=== PATIENT | female | born 1960 | race Caucasian/White ===

== ENCOUNTER 2021-07-27 05:14 | Inpatient (IN) | payer MEDICARE ==
[2021-07-27] MEDS ORDERED: DUONEB 0.5-3 MG/3 ml Neb IH ONE ×4 (05:23→06:09)
[2021-07-27 06:22] LABS: Absolute Neutrophil Ct (ANC) 6.32 (1.4-6.9); BASOPHIL % 0.3 % (0.0-0.4); Basophil (Absolute #) 0.02 (0-0.4); Eosinophil % 1.7 % (0.00-5.0); Eosinophil (Absolute #) 0.13 (0-0.5); Hematocrit 45.6 % (35-47); Hemoglobin 13.1 gm/dl (12.0-16.0); Lymphocyte (Absolute #) 0.65 (1.0-4.6); Lymphocytes % 8.5 % (24.0-44.0); Mean Cell Volume 95.8 fl (78-100); Mean Corpuscular Hemoglobin 27.5 pg (26-32); Mean Corpuscular Hgb Concent. 28.7 g/dl (32-36); Mean Platelet Volume 10.9 fl (7.5-11.0); Monocyte (Absolute #) 0.49 (0.0-1.3); Monocytes % 6.4 % (0.0-12.0); Neutrophil % 83.1 % (36.0-66.0); Platelet Count 147 K/mm3 (150-450); Red Blood Count 4.76 M/mm3 (4.1-5.4); Red Cell Distribution Width 16.7 % (11.5-14.0); White Blood Count 7.6 K/mm3 (4.0-10.5)
--- NOTE | 2021-07-27 06:40 | ERPHSYRPT ---
- History of Present Illness Source: patient, EMS Exam Limitations: clinical condition Patient Subjective Stated Complaint: "I can't breathe." Triage Nursing Assessment: patient is 60 y/o white female with PMH significant for COPD, asthma, DVT/PE, and morbid obesity. She presented via EMS with reported dyspnea and retrosternal chest pain. She reported that the dyspnea has been progressively worsening over the past two - three weeks. 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 Patient denies fevers. She denies nausea vomiting diarrhea. Patient was brought in by EMS service. They provided the patient nitroglycerin x1, Solu-Medrol intravenously and DuoNeb nebulizer treatment x1. Patient has no known exposure to anyone that has known COVID-19 infection or other respiratory illnesses. (SRIRAM VARGAS) Allergies/Adverse Reactions: Penicillins Allergy (Verified 07/27/21 05:16) Home Medications: Albuterol Sulfate [Ventolin Hfa] 2 puffs IH QID PRN 07/27/21 [History] Allopurinol 300 mg [Zyloprim 300 mg] 300 mg PO DAILY 07/27/21 [History] Apixaban [Eliquis] 5 mg PO DAILY 07/27/21 [History] Escitalopram Oxalate 20 mg PO DAILY 07/27/21 [History] Montelukast Sodium 10 mg [Singulair 10 MG] 10 mg PO HS 07/27/21 [History] hydrOXYzine HCL [Hydroxyzine HCl] 50 mg PO DAILY 07/27/21 [History] Travel Risk - International Travel Have you traveled outside of the country in past 3 weeks: No - Coronavirus Screening Are you exhibiting any of the following symptoms?: Yes Symptoms: Shortness of Breath Close contact with a COVID-19 positive Pt in past 14-21 Days: No - Vaccine Status Have you recieved a Covid-19 vaccination: No <SRIRAM VARGAS - Last Filed: 07/27/21 07:08> - Review of Systems Constitutional: No Symptoms Eyes: No Symptoms Ears, Nose, & Throat: No Symptoms Respiratory: Cough, Dyspnea Cardiac: Chest Pain Abdominal/Gastrointestinal: No Symptoms Genitourinary Symptoms: No Symptoms Musculoskeletal: No Symptoms Skin: No Symptoms Neurological: No Symptoms Psychological: No Symptoms Endocrine: No Symptoms Hematologic/Lymphatic: No Symptoms Immunological/Allergic: No Symptoms All Other Systems: Reviewed and Negative <SRIRAM VARGAS - Last Filed: 07/27/21 07:08> - Past Medical History Pertinent Past Medical History: Yes Neurological History: No Pertinent History ENT History: No Pertinent History Cardiac History: Hypertension Respiratory History: Asthma, COPD Endocrine Medical History: No Pertinent History Musculoskeletal History: No Pertinent History GI Medical History: Hemorrhoids History: No Pertinent History Psycho-Social History: Anxiety, Depression Female Reproductive Disorders: No Pertinent History Other Medical History: KIDNEY STONES - Past Surgical History Past Surgical History: Yes Neuro Surgical History: No Pertinent History Cardiac: No Pertinent History Respiratory: No Pertinent History Gastrointestinal: No Pertinent History Genitourinary: No Pertinent History Musculoskeletal: No Pertinent History Female Surgical History: Tubal Ligation - Social History Smoking Status: Former smoker Exposure to second hand smoke: No Drug Use: none Patient Lives Alone: No - Female History Hx Now: No <SRIRAM VARGAS - Last Filed: 07/27/21 07:08> - Physical Exam General Appearance: moderate distress, alert, anxiety, obese Eye Exam: PERRL/EOMI, eyes nml inspection Ears, Nose, Throat Exam: hearing grossly normal, normal ENT inspection, normal pharynx Neck Exam: normal inspection, non-tender, supple, full range of motion Respiratory Exam: normal breath sounds, lungs clear, respiratory distress (Mild to moderate), airway intact, wheezing, No chest tenderness Cardiovascular/Chest Exam: normal heart sounds, regular rate/rhythm, normal peripheral pulses Abdominal/Gastrointestinal Exam: soft, normal bowel sounds, No tenderness Rectal Exam: not done Extremity Exam: non-tender, normal range of motion, normal inspection Neurologic Exam: alert, oriented x 3, cooperative, investments manager II-XII nml as tested, normal mood/affect, sensation nml Skin Exam: normal color, warm, dry Lymphatic Exam: No adenopathy SpO2 Interpretation: hypoxic SpO2: 98 O2 Delivery: Non-rebreather <SRIRAM VARGAS - Last Filed: 07/27/21 07:08> - Nursing Vital Signs Nursing Vital Signs: Initial Vital Signs Temperature 99.1 F 07/27/21 05:14 Pulse Rate 86 07/27/21 05:14 Respiratory Rate 22 07/27/21 05:14 Blood Pressure 176/93 07/27/21 05:14 O2 Sat by Pulse Oximetry 90 L 07/27/21 05:14 Pain Scale Pain Intensity 0 - Course Nursing assessment & vital signs reviewed: Yes EKG Interpreted by Me: RATE ([id number]), Right [place] Deviation, NORMAL INTERVALS, NORMAL QRS, NORMAL ST-T, Other (No acute ischemic changes. No comparison EKG available.) <SRIRAM VARGAS - Last Filed: 07/27/21 07:08> Ordered Tests: Active Orders 24 hr Category Date Time Status Up Ad Nidhi ROUTINE Activity 07/27/21 08:00 Active Supervisor Parking Lot STAT Care 07/27/21 05:57 Active Code Status Order ROUTINE Care 07/27/21 08:00 Ordered EKG-ER Only STAT Care 07/27/21 05:57 Active Fall Protocol ROUTINE Care 07/27/21 08:02 Ordered IV Care Q6H Care 07/27/21 08:00 Ordered IV Insertion STAT Care 07/27/21 05:57 Active Miscellaneous Nursing Order OM.NOW Care 07/27/21 08:00 Ordered Oxygen-ED Only NON-REBREATHER 100% Care 07/27/21 05:[address] in Observation ROUTINE Care 07/27/21 08:00 Ordered Pulse Oximetry (ED) STAT Care 07/27/21 05:57 Active Pili Wagoner ROUTINE Care 07/27/21 08:00 Ordered Weight,Daily 0600 Care 07/27/21 08:00 Ordered Heart-Healthy Diet Diet 07/27/21 Lunch Active CHEST 1 VIEW (PORTABLE) Stat Exams 07/27/21 05:59 Taken CHEST 2 VIEWS (PA AND LAT) DAILY Exams 07/27/21 08:15 Ordered CHEST WITH CONTRAST [CT] Stat Exams 07/27/21 07:12 Ordered ARTERIAL BLOOD GASES Stat Lab 07/27/21 06:42 Completed BLOOD CULTURE Stat Lab 07/27/21 06:46 Received CBC AM.LAB Lab 07/28/21 04:00 Ordered CBC W DIFF Stat Lab 07/27/21 06:15 Completed CMP AM.LAB Lab 07/28/21 04:00 Ordered CMP Stat Lab 07/27/21 06:15 Completed D-DIMER QUANTITATIVE Stat Lab 07/27/21 06:15 Completed INFLUENZA A+B KARTHIK Stat Lab 07/27/21 06:30 Completed LIPASE Stat Lab 07/27/21 06:15 Completed Lactic Acid Stat Lab 07/27/21 06:42 Completed MAGNESIUM AM.LAB Lab 07/28/21 04:00 Ordered MAGNESIUM Stat Lab 07/27/21 06:15 Completed NT PRO BNP Stat Lab 07/27/21 06:15 Completed PROTIME WITH INR Stat Lab 07/27/21 06:15 Completed TROPONIN Q3H Lab 07/27/21 06:15 Completed TROPONIN Q3H Lab 07/27/21 09:00 Ordered TROPONIN Q3H Lab 07/27/21 12:00 Ordered TROPONIN Q3H Lab 07/27/21 15:00 Ordered TROPONIN Q3H Lab 07/27/21 18:00 Ordered TROPONIN Q3H Lab 07/27/21 21:00 Ordered Oxygen Venti-Mask 50% RT 07/27/21 08:00 Ordered Pulse Oximetry ROUTINE RT 07/27/21 08:00 Ordered Respiratory Therapy Assessment DAILY RT 07/27/21 05:42 Active Respiratory Therapy Consult ROUTINE RT 07/27/21 08:03 Ordered Medication Summary Discontinued Medications Generic Name Dose Route Start Last Admin Trade Name Freq PRN Reason Stop Dose Admin Albuterol/Ipratropium Confirm 07/27/21 05:24 Duoneb 0.5-3 Mg/3 Ml Neb Administered 07/27/21 05:25 Dose 3 ml IH .STK-MED ONE Albuterol/Ipratropium 3 ml 07/27/21 05:23 07/27/21 05:28 Duoneb 0.5-3 Mg/3 Ml Neb IH 07/27/21 05:24 3 ml STAT ONE Administration Albuterol/Ipratropium 3 ml 07/27/21 05:57 07/27/21 06:12 Duoneb 0.5-3 Mg/3 Ml Neb IH 07/27/21 05:58 3 ml STAT ONE Administration Albuterol/Ipratropium Confirm 07/27/21 06:09 Duoneb 0.5-3 Mg/3 Ml Neb Administered 07/27/21 06:10 Dose 3 ml IH .STK-MED ONE Famotidine 20 mg 07/27/21 07:42 07/27/21 07:46 Pepcid 20 Mg Vial IV 07/27/21 07:43 20 mg STAT ONE Administration Famotidine Confirm 07/27/21 07:45 Pepcid 20 Mg Vial Administered 07/27/21 07:46 Dose 20 mg IV .STK-MED ONE Pantoprazole Sodium 40 mg 07/27/21 07:42 07/27/21 07:45 Protonix 40 Mg Iv IV 07/27/21 07:43 40 mg STAT ONE Administration Pantoprazole Sodium Confirm 07/27/21 07:45 Protonix 40 Mg Iv Administered 07/27/21 07:46 Dose 40 mg IV .STK-MED ONE Lab/Rad Data: Laboratory Result Diagrams 07/27/21 06:15 07/27/21 06:15 Laboratory Results 07/27/21 07/27/21 07/27/21 Range/Units 06:42 06:30 06:15 WBC (4.0-10.5) K/mm3 RBC (4.1-5.4) M/mm3 Hgb (12.0-16.0) gm/dl Hct (35-47) % MCV (78-100) fl MCH (26-32) pg MCHC (32-36) g/dl RDW (11.5-14.0) % Plt Count (150-450) K/mm3 MPV (7.5-11.0) fl Gran % (36.0-66.0) % Eos # (Auto) (0-0.5) Absolute Lymphs (auto) (1.0-4.6) Absolute Monos (auto) (0.0-1.3) Lymphocytes % (24.0-44.0) % Monocytes % (0.0-12.0) % Eosinophils % (0.00-5.0) % Basophils % (0.0-0.4) % Absolute Granulocytes (1.4-6.9) Basophils # (0-0.4) PT (9.4-12.5) SECONDS INR (0.8-3.0) D-Dimer (215-500) ng/mL Puncture Site RIGHT RADIAL pCO2 81 H* (35-45) mmHg pO2 143 H* (75-100) mmHg Base Excess 11.0 H (-2.0-2.0) O2 Saturation 96.0 (94-100) g/dF ABG pH 7.31 L (7.35-7.45) ABG HCO3 40.8 H* (22-28) ABG O2 Sat (Measured) 99.4 (95-100) % Nam Test YES A-a Gradient 469 a/A Ratio 0.23 Hemoglobin 13.7 Carboxyhemoglobin 2.2 (0.0-6.9) % THgb Methemoglobin 1.2 L (1.4-1.5) % Temperature 37.0 C POC O2 Flow Rate 100 % Sodium (137-145) mmol/L Potassium 4.3 (3.5-5.1) mmol/L Chloride (98-107) mmol/L Carbon Dioxide (22-30) mmol/L Anion Gap (5-15) MEQ/L BUN (7-17) mg/dL Creatinine (0.52-1.04) mg/dL Estimated GFR ML/MIN Glucose (74-106) mg/dL Lactic Acid 0.7 (0.4-2.0) Calcium (8.4-10.2) mg/dL Magnesium 2.0 (1.6-2.3) mg/dL Total Bilirubin (0.2-1.3) mg/dL AST (14-36) U/L ALT (0-35) U/L Alkaline Phosphatase (38-126) U/L Troponin I (0.000-0.034) ng/mL NT-Pro-B Natriuret Pep (0-900) pg/mL Serum Total Protein (6.3-8.2) g/dL Albumin (3.5-5.0) g/dL Lipase (23-300) U/L Influenza Type A Ag NEGATIVE (NEGATIVE) Influenza Type B Ag NEGATIVE (NEGATIVE) 07/27/21 07/27/21 07/27/21 Range/Units 06:15 06:15 06:15 WBC (4.0-10.5) K/mm3 RBC (4.1-5.4) M/mm3 Hgb (12.0-16.0) gm/dl Hct (35-47) % MCV (78-100) fl MCH (26-32) pg MCHC (32-36) g/dl RDW (11.5-14.0) % Plt Count (150-450) K/mm3 MPV (7.5-11.0) fl Gran % (36.0-66.0) % Eos # (Auto) (0-0.5) Absolute Lymphs (auto) (1.0-4.6) Absolute Monos (auto) (0.0-1.3) Lymphocytes % (24.0-44.0) % Monocytes % (0.0-12.0) % Eosinophils % (0.00-5.0) % Basophils % (0.0-0.4) % Absolute Granulocytes (1.4-6.9) Basophils # (0-0.4) PT 14.4 H (9.4-12.5) SECONDS INR 1.22 (0.8-3.0) D-Dimer 2287 H* (215-500) ng/mL Puncture Site pCO2 (35-45) mmHg pO2 (75-100) mmHg Base Excess (-2.0-2.0) O2 Saturation (94-100) g/dF ABG pH (7.35-7.45) ABG HCO3 (22-28) ABG O2 Sat (Measured) (95-100) % Nam Test A-a Gradient a/A Ratio Hemoglobin Carboxyhemoglobin (0.0-6.9) % THgb Methemoglobin (1.4-1.5) % Temperature C POC O2 Flow Rate % Sodium 141 (137-145) mmol/L Potassium 4.0 (3.5-5.1) mmol/L Chloride 95 L (98-107) mmol/L Carbon Dioxide 39 H (22-30) mmol/L Anion Gap 10.2 (5-15) MEQ/L BUN 15 (7-17) mg/dL Creatinine 0.63 (0.52-1.04) mg/dL Estimated GFR > 60.0 ML/MIN Glucose 167 H (74-106) mg/dL Lactic Acid (0.4-2.0) Calcium 8.6 (8.4-10.2) mg/dL Magnesium (1.6-2.3) mg/dL Total Bilirubin 1.70 H (0.2-1.3) mg/dL AST 106 H (14-36) U/L ALT 27 (0-35) U/L Alkaline Phosphatase 99 (38-126) U/L Troponin I 0.018 (0.000-0.034) ng/mL NT-Pro-B Natriuret Pep 1740 H (0-900) pg/mL Serum Total Protein 6.8 (6.3-8.2) g/dL Albumin 3.6 (3.5-5.0) g/dL Lipase 26 (23-300) U/L Influenza Type A Ag (NEGATIVE) Influenza Type B Ag (NEGATIVE) 07/27/21 Range/Units 06:15 WBC 7.6 (4.0-10.5) K/mm3 RBC 4.76 (4.1-5.4) M/mm3 Hgb 13.1 (12.0-16.0) gm/dl Hct 45.6 (35-47) % MCV 95.8 (78-100) fl MCH 27.5 (26-32) pg MCHC 28.7 L (32-36) g/dl RDW 16.7 H (11.5-14.0) % Plt Count 147 L (150-450) K/mm3 MPV 10.9 (7.5-11.0) fl Gran % 83.1 H (36.0-66.0) % Eos # (Auto) 0.13 (0-0.5) Absolute Lymphs (auto) 0.65 L (1.0-4.6) Absolute Monos (auto) 0.49 (0.0-1.3) Lymphocytes % 8.5 L (24.0-44.0) % Monocytes % 6.4 (0.0-12.0) % Eosinophils % 1.7 (0.00-5.0) % Basophils % 0.3 (0.0-0.4) % Absolute Granulocytes 6.32 (1.4-6.9) Basophils # 0.02 (0-0.4) PT (9.4-12.5) SECONDS INR (0.8-3.0) D-Dimer (215-500) ng/mL Puncture Site pCO2 (35-45) mmHg pO2 (75-100) mmHg Base Excess (-2.0-2.0) O2 Saturation (94-100) g/dF ABG pH (7.35-7.45) ABG HCO3 (22-28) ABG O2 Sat (Measured) (95-100) % Nam Test A-a Gradient a/A Ratio Hemoglobin Carboxyhemoglobin (0.0-6.9) % THgb Methemoglobin (1.4-1.5) % Temperature C POC O2 Flow Rate % Sodium (137-145) mmol/L Potassium (3.5-5.1) mmol/L Chloride (98-107) mmol/L Carbon Dioxide (22-30) mmol/L Anion Gap (5-15) MEQ/L BUN (7-17) mg/dL Creatinine (0.52-1.04) mg/dL Estimated GFR ML/MIN Glucose (74-106) mg/dL Lactic Acid (0.4-2.0) Calcium (8.4-10.2) mg/dL Magnesium (1.6-2.3) mg/dL Total Bilirubin (0.2-1.3) mg/dL AST (14-36) U/L ALT (0-35) U/L Alkaline Phosphatase (38-126) U/L Troponin I (0.000-0.034) ng/mL NT-Pro-B Natriuret Pep (0-900) pg/mL Serum Total Protein (6.3-8.2) g/dL Albumin (3.5-5.0) g/dL Lipase (23-300) U/L Influenza Type A Ag (NEGATIVE) Influenza Type B Ag (NEGATIVE) - Progress Progress: improved, re-examined Air Movement: fair Blood Culture(s) Obtained: Yes Antibiotics given: No Counseled pt/family regarding: lab results, diagnosis, rad results <SRIRAM VARGAS - Last Filed: 07/27/21 07:08> - Progress Discussed with : Jules Will see patient in: hospital (observation) Counseled pt/family regarding: need for follow-up <ZULMA MEDINA - Last Filed: 07/27/21 08:07> - Progress Progress Note: 07/27/21 06:40 Chest x-ray shows cardiomegaly with increased bronchial vascular markings bilaterally. Fluid versus infiltrate 07/27/21 07:09 Medical decision making: I reviewed this patient with Dr. Medina. We discussed the patient history, work-up results and pending labs that need to be followed up on. Patient is aware that this patient is being placed on BiPAP. He will follow up on x-rays and pending labs. He will make the final disposition. (SRIRAM VARGAS) - Departure Departure Disposition: Observation Critical Care Time: No <SRIRAM VARGAS - Last Filed: 07/27/21 07:08> - Departure Departure Disposition: Observation Critical Care Time: Yes Critical Care Time(excluding separately billable procedures): Critical 30-74 mins <ZULMA MEDINA - Last Filed: 07/27/21 08:07> - Departure Clinical Impression: SOB (shortness of breath), Hypoxia Condition: Fair Referrals: KENYA REYES OVERLAY OPERATOR [Primary Care Provider] -
[2021-07-27 06:45] LABS: INR 1.22 (0.8-3.0); PROTIME 14.4 SECONDS (9.4-12.5)
[2021-07-27 06:51] LABS: A-aADO2 469; ABG HEMOGLOBIN 13.7; ABG POTASSIUM 4.3 (3.5-5.1); ABG SITE RIGHT RADIAL; ALLEN TEST OK? YES; ARTERIAL BLD GAS O2 SATURATION 99.4 % (95-100); ARTERIAL BLOOD GAS FIO2 100 %; ARTERIAL BLOOD GAS PCO2 81 mmHg (35-45); ARTERIAL BLOOD GAS PO2 143 mmHg (75-100); ARTERIAL BLOOD GAS pH 7.31 (7.35-7.45); CARBOXYHEMOGLOBIN 2.2 % THgb (0.0-6.9); HCO3- 40.8 (22-28); Lactic Acid 0.7 (0.4-2.0); Methhemoglobin 1.2 % (1.4-1.5)
[2021-07-27 06:56] LABS: ALBUMIN 3.6 g/dL (3.5-5.0); ALKALINE PHOSPHATASE 99 U/L (38-126); ANION GAP 10.2 MEQ/L (5-15); BLOOD UREA NITROGEN 15 mg/dL (7-17); CHLORIDE 95 mmol/L (98-107); Calcium 8.6 mg/dL (8.4-10.2); Carbon Dioxide 39 mmol/L (22-30); Creatinine 1 0.63 mg/dL (0.52-1.04); EST GLOMERULAR FILTRATION RATE > 60.0 ML/MIN; Glucose 167 mg/dL (74-106); LIPASE 26 U/L (23-300); NT PRO BNP 1740 pg/mL (0-900); SGOT/AST 106 U/L (14-36); SGPT/ALT 27 U/L (0-35); SODIUM 141 mmol/L (137-145); Total Protein 6.8 g/dL (6.3-8.2)
[2021-07-27 07:13] LABS: INFLUENZA A NEGATIVE (NEGATIVE); INFLUENZA B NEGATIVE (NEGATIVE)
[2021-07-27] MEDS ORDERED: Pepcid 20 MG VIAL IV ONE ×2 (07:42→07:45)
[2021-07-27] MEDS ORDERED: PROTONIX 40 MG IV IV ONE ×2 (07:42→07:45)
[2021-07-27] MEDS ORDERED: Sodium Chloride 0.9% 1000 ML 1,000 ML IV SCH (08:00)
[2021-07-27] MEDS ORDERED: ENOXAPARIN SODIUM SQ STA (08:08)
--- NOTE | 2021-07-27 08:22 | XRAY ---
Indication: Short of breath. Comparison: None Portable chest inflated with diffuse bilateral hazy interstitial alveolar opacities, small right base effusion/atelectasis, cardiomegaly, and bilateral hilar calcified nodes. Bony thorax intact.
[2021-07-27] MEDS ORDERED: ENOXAPARIN SODIUM SQ ONE (08:30)
[2021-07-27 09:17] LABS: A-aADO2 195; ABG HEMOGLOBIN 13.8; ABG POTASSIUM 4.6 (3.5-5.1); ARTERIAL BLD GAS O2 SATURATION 99.4 % (95-100); ARTERIAL BLOOD GAS FIO2 60 %; ARTERIAL BLOOD GAS PO2 140 mmHg (75-100); ARTERIAL BLOOD GAS pH 7.33 (7.35-7.45); CARBOXYHEMOGLOBIN 1.9 % THgb (0.0-6.9); HGB O2 SAT 96.4 g/dF (94-100)
[2021-07-27 09:18] LABS: ABG SITE RIGHT BRACHIAL; ARTERIAL BLOOD GAS PCO2 74 mmHg (35-45)
[2021-07-27 10:24] LABS: Slide Review 1 YES
[2021-07-27] MEDS ORDERED: DUONEB 0.5-3 MG/3 ml Neb IH SCH (11:00)
[2021-07-27] MEDS: DUONEB 0.5-3 MG/3 ml Neb IH SCH ×4 (11:54→21:59)
--- NOTE | 2021-07-27 12:39 | PCM.HP ---
History of Present Illness - Chief Complaint Chief Complaint: shortness of breath for 2-3 days History of Present Illness: is a 60 year old female.has a history of COPD, asthma and DVT/pulmonary emboli (on Eliquis) and presents with a 2 to 3-week history of worsening chest pain and shortness of breath as well as wheezing. Patient denies fevers. She denies nausea vomiting diarrhea. Patient was brought in by EMS service. They provided the patient nitroglycerin x1, Solu-Medrol in travenously and DuoNeb nebulizer treatment x1. Patient has no known exposure to anyone that has known COVID-19 infection or other respiratory illnesses. - Review of Systems Constitutional: Lethargy, Weakness, No Fever, No Chills Eyes: No Symptoms Ears, Nose, & Throat: No Symptoms Respiratory: Cough, Orthopnea, Short Of Breath, Wheezing Cardiac: No Chest Pain, No Edema, No Syncope Abdominal/Gastrointestinal: No Abdominal Pain, No Nausea, No Vomiting, No Diarrhea Genitourinary Symptoms: No Dysuria Musculoskeletal: No Back Pain, No Neck Pain Skin: No Rash Neurological: No Dizziness, No Focal Weakness, No Sensory Changes Psychological: No Symptoms Endocrine: No Symptoms Hematologic/Lymphatic: No Symptoms Immunological/Allergic: No Symptoms Medications & Allergies Home Medications: Home Medication List Albuterol Sulfate [Ventolin Hfa] 2 puffs IH QID PRN 07/27/21 [History Confirmed 07/27/21] Allopurinol 300 mg [Zyloprim 300 mg] 300 mg PO DAILY 07/27/21 [History Confirmed 07/27/21] Apixaban [Eliquis] 5 mg PO DAILY 07/27/21 [History Confirmed 07/27/21] Escitalopram Oxalate 20 mg PO DAILY 07/27/21 [History Confirmed 07/27/21] Montelukast Sodium 10 mg [Singulair 10 MG] 10 mg PO HS 07/27/21 [History Confirmed 07/27/21] hydrOXYzine HCL [Hydroxyzine HCl] 50 mg PO BID 07/27/21 [History Confirmed 07/27/21] Allergies/Adverse Reactions: Allergies Allergy/AdvReac Type Severity Reaction Status Date / Time Penicillins Allergy Verified 07/27/21 05:16 - Past Medical History Past Medical History: Yes Neurological History: No Pertinent History ENT History: No Pertinent History Cardiac History: Hypertension Respiratory History: Asthma, COPD Endocrine Medical History: No Pertinent History Musculoskelatal History: No Pertinent History GI Medical History: Hemorrhoids History: No Pertinent History Pyscho-Social History: Anxiety, Depression Reproductive Disorders: No Pertinent History Comment: KIDNEY STONES - Female History Are you now?: No - Past Surgical History Past Surgical History: Yes Neuro Surgical History: No Pertinent History Cardiac History: No Pertinent History Respiratory Surgery: No Pertinent History GI Surgical History: No Pertinent History Genitourinary Surgical Hx: No Pertinent History Musculskeletal Surgical Hx: No Pertinent History Female Surgical History: Tubal Ligation - Social History Smoking Status: Current every day smoker Exposure to second hand smoke: No Alcohol: None Drug Use: none - Physical Exam Vital Signs: Vital Signs - 24 hr Temp Pulse Resp BP Pulse Ox 07/27/21 11:27 97.7 F 82 28 H 179/85 96 07/27/21 11:01 97.7 F 82 28 H 179/85 96 07/27/21 10:11 97.4 F 84 20 160/81 98 07/27/21 09:04 97.8 F 84 24 164/88 94 L 07/27/21 08:06 78 20 169/85 97 07/27/21 08:00 96 07/27/21 07:19 99.2 F 77 20 148/65 92 L 07/27/21 07:11 98 07/27/21 06:14 85 22 153/80 98 07/27/21 06:12 83 20 98 07/27/21 05:57 98 07/27/21 05:28 91 H 19 87 L 07/27/21 05:14 99.1 F 86 26 H 176/93 92 L General Appearance: moderate distress, alert, obese Neurologic Exam: alert, oriented x 3, cooperative, sensation nml, No motor deficits, No sensory deficit Eye Exam: PERRL/EOMI, eyes nml inspection Ears, Nose, Throat Exam: normal ENT inspection, TMs normal, pharynx normal, moist mucous membranes Neck Exam: normal inspection, non-tender, supple, full range of motion Respiratory Exam: diminished breath sounds, crackles/rales, rhonchi, wheezing, No respiratory distress Cardiovascular Exam: tachycardia, capillary refill 2-3 sec, edema Gastrointestinal/Abdomen Exam: soft, normal bowel sounds, No tenderness, No mass Back Exam: normal inspection, normal range of motion, No CVA tenderness, No vertebral tenderness Extremity Exam: normal inspection, normal range of motion, pelvis stable Skin Exam: normal color, warm, dry, No rash Lymphatic Exam: No adenopathy Results - Labs Lab/Micro Results: Lab Results-Last 24 Hours 07/27/21 07/27/21 07/27/21 Range/Units 06:15 06:15 06:15 WBC 7.6 (4.0-10.5) K/mm3 RBC 4.76 (4.1-5.4) M/mm3 Hgb 13.1 (12.0-16.0) gm/dl Hct 45.6 (35-47) % MCV 95.8 (78-100) fl MCH 27.5 (26-32) pg MCHC 28.7 L (32-36) g/dl RDW 16.7 H (11.5-14.0) % Plt Count 147 L (150-450) K/mm3 MPV 10.9 (7.5-11.0) fl Gran % 83.1 H (36.0-66.0) % Eos # (Auto) 0.13 (0-0.5) Absolute Lymphs (auto) 0.65 L (1.0-4.6) Absolute Monos (auto) 0.49 (0.0-1.3) Lymphocytes % 8.5 L (24.0-44.0) % Monocytes % 6.4 (0.0-12.0) % Eosinophils % 1.7 (0.00-5.0) % Basophils % 0.3 (0.0-0.4) % Absolute Granulocytes 6.32 (1.4-6.9) Basophils # 0.02 (0-0.4) PT 14.4 H (9.4-12.5) SECONDS INR 1.22 (0.8-3.0) D-Dimer 2287 H* (215-500) ng/mL Puncture Site pCO2 (35-45) mmHg pO2 (75-100) mmHg Base Excess (-2.0-2.0) O2 Saturation (94-100) g/dF ABG pH (7.35-7.45) ABG HCO3 (22-28) ABG O2 Sat (Measured) (95-100) % Nam Test A-a Gradient a/A Ratio Hemoglobin Carboxyhemoglobin (0.0-6.9) % THgb Methemoglobin (1.4-1.5) % Temperature C POC O2 Flow Rate % Inspiratory BiPAP Expiratory BiPAP Sodium 141 (137-145) mmol/L Potassium 4.0 (3.5-5.1) mmol/L Chloride 95 L (98-107) mmol/L Carbon Dioxide 39 H (22-30) mmol/L Anion Gap 10.2 (5-15) MEQ/L BUN 15 (7-17) mg/dL Creatinine 0.63 (0.52-1.04) mg/dL Estimated GFR > 60.0 ML/MIN Glucose 167 H (74-106) mg/dL Lactic Acid (0.4-2.0) Calcium 8.6 (8.4-10.2) mg/dL Magnesium (1.6-2.3) mg/dL Total Bilirubin 1.70 H (0.2-1.3) mg/dL AST 106 H (14-36) U/L ALT 27 (0-35) U/L Alkaline Phosphatase 99 (38-126) U/L Troponin I (0.000-0.034) ng/mL NT-Pro-B Natriuret Pep 1740 H (0-900) pg/mL Serum Total Protein 6.8 (6.3-8.2) g/dL Albumin 3.6 (3.5-5.0) g/dL Lipase 26 (23-300) U/L Influenza Type A Ag (NEGATIVE) Influenza Type B Ag (NEGATIVE) SARS-CoV-2 (PCR) (NEGATIVE) Slides for Path Review YES 07/27/21 07/27/21 07/27/21 Range/Units 06:15 06:15 06:30 WBC (4.0-10.5) K/mm3 RBC (4.1-5.4) M/mm3 Hgb (12.0-16.0) gm/dl Hct (35-47) % MCV (78-100) fl MCH (26-32) pg MCHC (32-36) g/dl RDW (11.5-14.0) % Plt Count (150-450) K/mm3 MPV (7.5-11.0) fl Gran % (36.0-66.0) % Eos # (Auto) (0-0.5) Absolute Lymphs (auto) (1.0-4.6) Absolute Monos (auto) (0.0-1.3) Lymphocytes % (24.0-44.0) % Monocytes % (0.0-12.0) % Eosinophils % (0.00-5.0) % Basophils % (0.0-0.4) % Absolute Granulocytes (1.4-6.9) Basophils # (0-0.4) PT (9.4-12.5) SECONDS INR (0.8-3.0) D-Dimer (215-500) ng/mL Puncture Site pCO2 (35-45) mmHg pO2 (75-100) mmHg Base Excess (-2.0-2.0) O2 Saturation (94-100) g/dF ABG pH (7.35-7.45) ABG HCO3 (22-28) ABG O2 Sat (Measured) (95-100) % Nam Test A-a Gradient a/A Ratio Hemoglobin Carboxyhemoglobin (0.0-6.9) % THgb Methemoglobin (1.4-1.5) % Temperature C POC O2 Flow Rate % Inspiratory BiPAP Expiratory BiPAP Sodium (137-145) mmol/L Potassium (3.5-5.1) mmol/L Chloride (98-107) mmol/L Carbon Dioxide (22-30) mmol/L Anion Gap (5-15) MEQ/L BUN (7-17) mg/dL Creatinine (0.52-1.04) mg/dL Estimated GFR ML/MIN Glucose (74-106) mg/dL Lactic Acid (0.4-2.0) Calcium (8.4-10.2) mg/dL Magnesium 2.0 (1.6-2.3) mg/dL Total Bilirubin (0.2-1.3) mg/dL AST (14-36) U/L ALT (0-35) U/L Alkaline Phosphatase (38-126) U/L Troponin I 0.018 (0.000-0.034) ng/mL NT-Pro-B Natriuret Pep (0-900) pg/mL Serum Total Protein (6.3-8.2) g/dL Albumin (3.5-5.0) g/dL Lipase (23-300) U/L Influenza Type A Ag NEGATIVE (NEGATIVE) Influenza Type B Ag NEGATIVE (NEGATIVE) SARS-CoV-2 (PCR) (NEGATIVE) Slides for Path Review 07/27/21 07/27/21 07/27/21 Range/Units 06:42 08:18 09:04 WBC (4.0-10.5) K/mm3 RBC (4.1-5.4) M/mm3 Hgb (12.0-16.0) gm/dl Hct (35-47) % MCV (78-100) fl MCH (26-32) pg MCHC (32-36) g/dl RDW (11.5-14.0) % Plt Count (150-450) K/mm3 MPV (7.5-11.0) fl Gran % (36.0-66.0) % Eos # (Auto) (0-0.5) Absolute Lymphs (auto) (1.0-4.6) Absolute Monos (auto) (0.0-1.3) Lymphocytes % (24.0-44.0) % Monocytes % (0.0-12.0) % Eosinophils % (0.00-5.0) % Basophils % (0.0-0.4) % Absolute Granulocytes (1.4-6.9) Basophils # (0-0.4) PT (9.4-12.5) SECONDS INR (0.8-3.0) D-Dimer (215-500) ng/mL Puncture Site RIGHT RADIAL pCO2 81 H* (35-45) mmHg pO2 143 H* (75-100) mmHg Base Excess 11.0 H (-2.0-2.0) O2 Saturation 96.0 (94-100) g/dF ABG pH 7.31 L (7.35-7.45) ABG HCO3 40.8 H* (22-28) ABG O2 Sat (Measured) 99.4 (95-100) % Nam Test YES A-a Gradient 469 a/A Ratio 0.23 Hemoglobin 13.7 Carboxyhemoglobin 2.2 (0.0-6.9) % THgb Methemoglobin 1.2 L (1.4-1.5) % Temperature 37.0 C POC O2 Flow Rate 100 % Inspiratory BiPAP Expiratory BiPAP Sodium (137-145) mmol/L Potassium 4.3 (3.5-5.1) mmol/L Chloride (98-107) mmol/L Carbon Dioxide (22-30) mmol/L Anion Gap (5-15) MEQ/L BUN (7-17) mg/dL Creatinine (0.52-1.04) mg/dL Estimated GFR ML/MIN Glucose (74-106) mg/dL Lactic Acid 0.7 (0.4-2.0) Calcium (8.4-10.2) mg/dL Magnesium (1.6-2.3) mg/dL Total Bilirubin (0.2-1.3) mg/dL AST (14-36) U/L ALT (0-35) U/L Alkaline Phosphatase (38-126) U/L Troponin I < 0.012 (0.000-0.034) ng/mL NT-Pro-B Natriuret Pep (0-900) pg/mL Serum Total Protein (6.3-8.2) g/dL Albumin (3.5-5.0) g/dL Lipase (23-300) U/L Influenza Type A Ag (NEGATIVE) Influenza Type B Ag (NEGATIVE) SARS-CoV-2 (PCR) NEGATIVE (NEGATIVE) Slides for Path Review 07/27/21 Range/Units 09:16 WBC (4.0-10.5) K/mm3 RBC (4.1-5.4) M/mm3 Hgb (12.0-16.0) gm/dl Hct (35-47) % MCV (78-100) fl MCH (26-32) pg MCHC (32-36) g/dl RDW (11.5-14.0) % Plt Count (150-450) K/mm3 MPV (7.5-11.0) fl Gran % (36.0-66.0) % Eos # (Auto) (0-0.5) Absolute Lymphs (auto) (1.0-4.6) Absolute Monos (auto) (0.0-1.3) Lymphocytes % (24.0-44.0) % Monocytes % (0.0-12.0) % Eosinophils % (0.00-5.0) % Basophils % (0.0-0.4) % Absolute Granulocytes (1.4-6.9) Basophils # (0-0.4) PT (9.4-12.5) SECONDS INR (0.8-3.0) D-Dimer (215-500) ng/mL Puncture Site RIGHT BRACHIAL pCO2 74 H* (35-45) mmHg pO2 140 H* (75-100) mmHg Base Excess 10.0 H (-2.0-2.0) O2 Saturation 96.4 (94-100) g/dF ABG pH 7.33 L (7.35-7.45) ABG HCO3 39.0 H* (22-28) ABG O2 Sat (Measured) 99.4 (95-100) % Nam Test NOT APPLICABLE A-a Gradient 195 a/A Ratio 0.42 Hemoglobin 13.8 Carboxyhemoglobin 1.9 (0.0-6.9) % THgb Methemoglobin 1.0 L (1.4-1.5) % Temperature 37.0 C POC O2 Flow Rate 60 % Inspiratory BiPAP 12 Expiratory BiPAP 5 Sodium (137-145) mmol/L Potassium 4.6 (3.5-5.1) mmol/L Chloride (98-107) mmol/L Carbon Dioxide (22-30) mmol/L Anion Gap (5-15) MEQ/L BUN (7-17) mg/dL Creatinine (0.52-1.04) mg/dL Estimated GFR ML/MIN Glucose (74-106) mg/dL Lactic Acid (0.4-2.0) Calcium (8.4-10.2) mg/dL Magnesium (1.6-2.3) mg/dL Total Bilirubin (0.2-1.3) mg/dL AST (14-36) U/L ALT (0-35) U/L Alkaline Phosphatase (38-126) U/L Troponin I (0.000-0.034) ng/mL NT-Pro-B Natriuret Pep (0-900) pg/mL Serum Total Protein (6.3-8.2) g/dL Albumin (3.5-5.0) g/dL Lipase (23-300) U/L Influenza Type A Ag (NEGATIVE) Influenza Type B Ag (NEGATIVE) SARS-CoV-2 (PCR) (NEGATIVE) Slides for Path Review - Radiology Impressions Radiology Exams & Impressions: Radiology Procedures Category Date Time Status CHEST 1 VIEW (PORTABLE) Stat Exams 07/27/21 05:59 Completed CHEST 2 VIEWS (PA AND LAT) Routine Exams 07/28/21 08:15 Stop Req ECHO W/2D AND DOPPLER [US] Routine Exams 07/29/21 Ordered RAD/CHEST 1 VIEW (PORTABLE) Indication: Short of breath. Comparison: None Portable chest inflated with diffuse bilateral hazy interstitial alveolar opacities, small right base effusion/atelectasis, cardiomegaly, and bilateral hilar calcified nodes. Bony thorax intact. - Other Procedures and Tests Respiratory Therapy 07/27/21 05:42 Respiratory Therapy Assessment DAILY 07/27/21 08:00 Oxygen Venti-Mask 50% 07/27/21 09:18 BiPap/CPAP STAT Assessment/Plan (1) Hypoventilation associated with obesity Current Visit: Yes Status: Acute Qualifiers: Obesity classification: adult class 3 (BMI >= 40) Serious obesity comorbidity presence: with serious comorbidity Body mass index: BMI 70 or greater Qualified Code(s): E66.2 - Morbid (severe) obesity with alveolar hypoventilation; Z68.45 - Body mass index [BMI] 70 or greater, adult Assessment & Plan: Chief Complaint Diagnosis COPD,HYPOXIA Allergies Allergy/AdvReac Type Severity Reaction Status Date / Time Penicillins Allergy Verified 07/27/21 05:16 Vital Signs (Last 24 hours) Temp Pulse Resp BP Pulse Ox 07/27/21 11:27 97.7 F 82 28 H 179/85 96 07/27/21 11:01 97.7 F 82 28 H 179/85 96 07/27/21 10:11 97.4 F 84 20 160/81 98 07/27/21 09:04 97.8 F 84 24 164/88 94 L 07/27/21 08:06 78 20 169/85 97 07/27/21 08:00 96 07/27/21 07:19 99.2 F 77 20 148/65 92 L 07/27/21 07:11 98 07/27/21 06:14 85 22 153/80 98 07/27/21 06:12 83 20 98 07/27/21 05:57 98 07/27/21 05:28 91 H 19 87 L 07/27/21 05:14 99.1 F 86 26 H 176/93 92 L Home Medications Medication Instructions Recorded Confirmed Last Taken Type Albuterol Sulfate [Ventolin Hfa] 2 puffs IH QID PRN 07/27/21 07/27/21 Unknown History Allopurinol 300 mg [Zyloprim 300 mg PO DAILY 07/27/21 07/27/21 Unknown History 300 mg] Apixaban [Eliquis] 5 mg PO DAILY 07/27/21 07/27/21 Unknown History Escitalopram Oxalate 20 mg PO DAILY 07/27/21 07/27/21 Unknown History Montelukast Sodium 10 mg 10 mg PO HS 07/27/21 07/27/21 Unknown History [Singulair 10 MG] hydrOXYzine HCL [Hydroxyzine HCl] 50 mg PO BID 07/27/21 07/27/21 Unknown History Current Medications Generic Name Dose Route Start Last Admin Trade Name Freq PRN Reason Stop Dose Admin Albuterol/Ipratropium 3 ml 07/27/21 11:00 07/27/21 11:54 Duoneb 0.5-3 Mg/3 Ml Neb IH 08/26/21 10:59 3 ml Q4HRT ERNESTO Administration Ceftriaxone Sodium/Dextrose 1 g in 50 mls @ 100 mls/hr 07/27/21 11:30 Rocephin 1 Gm-D5w 50 Ml Bag IV 07/30/21 11:29 DAILY ERNESTO Azithromycin 500 mg in 250 mls @ 250 mls/hr 07/27/21 11:30 Zithromax 500 Mg/ 250 Ml Nacl Premix IV 08/26/21 11:29 DAILY ERNESTO Discontinued Medications Generic Name Dose Route Start Last Admin Trade Name Freq PRN Reason Stop Dose Admin Albuterol/Ipratropium Confirm 07/27/21 05:24 Duoneb 0.5-3 Mg/3 Ml Neb Administered 07/27/21 05:25 Dose 3 ml IH .STK-MED ONE Albuterol/Ipratropium 3 ml 07/27/21 05:23 07/27/21 05:28 Duoneb 0.5-3 Mg/3 Ml Neb IH 07/27/21 05:24 3 ml STAT ONE Administration Albuterol/Ipratropium 3 ml 07/27/21 05:57 07/27/21 06:12 Duoneb 0.5-3 Mg/3 Ml Neb IH 07/27/21 05:58 3 ml STAT ONE Administration Albuterol/Ipratropium Confirm 07/27/21 06:09 Duoneb 0.5-3 Mg/3 Ml Neb Administered 07/27/21 06:10 Dose 3 ml IH .STK-MED ONE Albuterol/Ipratropium 3 ml 07/27/21 11:00 Duoneb 0.5-3 Mg/3 Ml Neb IH 08/26/21 10:59 Q4HRT ERNESTO Enoxaparin Sodium 0 mg 07/27/21 22:00 Enoxaparin Sodium SQ 08/26/21 21:59 BID ERNESTO Enoxaparin Sodium 120 mg 07/27/21 08:08 07/27/21 08:30 Enoxaparin Sodium SQ 07/27/21 08:09 120 mg STAT STA Administration Enoxaparin Sodium Confirm 07/27/21 08:30 Enoxaparin Sodium Administered 07/27/21 08:31 Dose 120 mg SQ .STK-MED ONE Famotidine 20 mg 07/27/21 07:42 07/27/21 07:46 Pepcid 20 Mg Vial IV 07/27/21 07:43 20 mg STAT ONE Administration Famotidine Confirm 07/27/21 07:45 Pepcid 20 Mg Vial Administered 07/27/21 07:46 Dose 20 mg IV .STK-MED ONE Sodium Chloride 1,000 mls @ 50 mls/hr 07/27/21 08:00 Sodium Chloride 0.9% 1000 Ml IV 08/26/21 07:59 .Q20H ERNESTO Pantoprazole Sodium 40 mg 07/27/21 07:42 07/27/21 07:45 Protonix 40 Mg Iv IV 07/27/21 07:43 40 mg STAT ONE Administration Pantoprazole Sodium Confirm 07/27/21 07:45 Protonix 40 Mg Iv Administered 07/27/21 07:46 Dose 40 mg IV .STK-MED ONE Intake & Output (Last 24 hours) 07/25/21 07/26/21 07/27/21 07/28/21 11:59 11:59 11:59 11:59 Weight 222.6 kg Microbiology Results (Last 24 hours) 07/27/21 06:46 Blood Blood Culture Gram Stain - Pending 07/27/21 06:46 Blood Blood Culture - Pending 07/27/21 06:15 Blood Blood Culture Gram Stain - Pending 07/27/21 06:15 Blood Blood Culture - Pending Laboratory Results (Last 24 hours) 07/27/21 07/27/21 07/27/21 09:16 09:04 08:18 WBC RBC Hgb Hct MCV MCH MCHC RDW Plt Count MPV Gran % Eos # (Auto) Absolute Lymphs (auto) Absolute Monos (auto) Lymphocytes % Monocytes % Eosinophils % Basophils % Absolute Granulocytes Basophils # PT INR D-Dimer Puncture Site RIGHT BRACHIAL pCO2 74 H* pO2 140 H* Base Excess 10.0 H O2 Saturation 96.4 ABG pH 7.33 L ABG HCO3 39.0 H* ABG O2 Sat (Measured) 99.4 Nam Test NOT APPLICABLE A-a Gradient 195 a/A Ratio 0.42 Hemoglobin 13.8 Carboxyhemoglobin 1.9 Methemoglobin 1.0 L Temperature 37.0 POC O2 Flow Rate 60 Inspiratory BiPAP 12 Expiratory BiPAP 5 Sodium Potassium 4.6 Chloride Carbon Dioxide Anion Gap BUN Creatinine Estimated GFR Glucose Lactic Acid Calcium Magnesium Total Bilirubin AST ALT Alkaline Phosphatase Troponin I < 0.012 NT-Pro-B Natriuret Pep Serum Total Protein Albumin Lipase Influenza Type A Ag Influenza Type B Ag SARS-CoV-2 (PCR) NEGATIVE Slides for Path Review 07/27/21 07/27/21 07/27/21 06:42 06:30 06:15 WBC RBC Hgb Hct MCV MCH MCHC RDW Plt Count MPV Gran % Eos # (Auto) Absolute Lymphs (auto) Absolute Monos (auto) Lymphocytes % Monocytes % Eosinophils % Basophils % Absolute Granulocytes Basophils # PT INR D-Dimer Puncture Site RIGHT RADIAL pCO2 81 H* pO2 143 H* Base Excess 11.0 H O2 Saturation 96.0 ABG pH 7.31 L ABG HCO3 40.8 H* ABG O2 Sat (Measured) 99.4 Nam Test YES A-a Gradient 469 a/A Ratio 0.23 Hemoglobin 13.7 Carboxyhemoglobin 2.2 Methemoglobin 1.2 L Temperature 37.0 POC O2 Flow Rate 100 Inspiratory BiPAP Expiratory BiPAP Sodium Potassium 4.3 Chloride Carbon Dioxide Anion Gap BUN Creatinine Estimated GFR Glucose Lactic Acid 0.7 Calcium Magnesium 2.0 Total Bilirubin AST ALT Alkaline Phosphatase Troponin I NT-Pro-B Natriuret Pep Serum Total Protein Albumin Lipase Influenza Type A Ag NEGATIVE Influenza Type B Ag NEGATIVE SARS-CoV-2 (PCR) Slides for Path Review 07/27/21 07/27/21 07/27/21 06:15 06:15 06:15 WBC RBC Hgb Hct MCV MCH MCHC RDW Plt Count MPV Gran % Eos # (Auto) Absolute Lymphs (auto) Absolute Monos (auto) Lymphocytes % Monocytes % Eosinophils % Basophils % Absolute Granulocytes Basophils # PT 14.4 H INR 1.22 D-Dimer 2287 H* Puncture Site pCO2 pO2 Base Excess O2 Saturation ABG pH ABG HCO3 ABG O2 Sat (Measured) Nam Test A-a Gradient a/A Ratio Hemoglobin Carboxyhemoglobin Methemoglobin Temperature POC O2 Flow Rate Inspiratory BiPAP Expiratory BiPAP Sodium 141 Potassium 4.0 Chloride 95 L Carbon Dioxide 39 H Anion Gap 10.2 BUN 15 Creatinine 0.63 Estimated GFR > 60.0 Glucose 167 H Lactic Acid Calcium 8.6 Magnesium Total Bilirubin 1.70 H AST 106 H ALT 27 Alkaline Phosphatase 99 Troponin I 0.018 NT-Pro-B Natriuret Pep 1740 H Serum Total Protein 6.8 Albumin 3.6 Lipase 26 Influenza Type A Ag Influenza Type B Ag SARS-CoV-2 (PCR) Slides for Path Review 07/27/21 06:15 WBC 7.6 RBC 4.76 Hgb 13.1 Hct 45.6 MCV 95.8 MCH 27.5 MCHC 28.7 L RDW 16.7 H Plt Count 147 L MPV 10.9 Gran % 83.1 H Eos # (Auto) 0.13 Absolute Lymphs (auto) 0.65 L Absolute Monos (auto) 0.49 Lymphocytes % 8.5 L Monocytes % 6.4 Eosinophils % 1.7 Basophils % 0.3 Absolute Granulocytes 6.32 Basophils # 0.02 PT INR D-Dimer Puncture Site pCO2 pO2 Base Excess O2 Saturation ABG pH ABG HCO3 ABG O2 Sat (Measured) Nam Test A-a Gradient a/A Ratio Hemoglobin Carboxyhemoglobin Methemoglobin Temperature POC O2 Flow Rate Inspiratory BiPAP Expiratory BiPAP Sodium Potassium Chloride Carbon Dioxide Anion Gap BUN Creatinine Estimated GFR Glucose Lactic Acid Calcium Magnesium Total Bilirubin AST ALT Alkaline Phosphatase Troponin I NT-Pro-B Natriuret Pep Serum Total Protein Albumin Lipase Influenza Type A Ag Influenza Type B Ag SARS-CoV-2 (PCR) Slides for Path Review YES Orders (Last 24 hours) Category Date Time Status Up Ad Nidhi ROUTINE Activity 07/27/21 08:00 Active Analysis Evaluator STAT Care 07/27/21 05:57 Completed Code Status Order ROUTINE Care 07/27/21 08:00 Active EKG-ER Only STAT Care 07/27/21 05:57 Completed Fall Protocol Q1H Care 07/27/21 08:02 Active IV Care Q6H Care 07/27/21 11:05 Active IV Insertion STAT Care 07/27/21 05:57 Completed Miscellaneous Nursing Order OM.NOW Care 07/27/21 08:00 Active Oxygen-ED Only NON-REBREATHER 100% Care 07/27/21 05:[address] in Observation ROUTINE Care 07/27/21 08:00 Active Pulse Oximetry (ED) STAT Care 07/27/21 05:57 Completed Weight,Daily 0600 Care 07/27/21 08:00 Active Heart-Healthy Diet Diet 07/27/21 Lunch Active CHEST 1 VIEW (PORTABLE) Stat Exams 07/27/21 05:59 Completed CHEST 2 VIEWS (PA AND LAT) Routine Exams 07/28/21 08:15 Stop Req ECHO W/2D AND DOPPLER [US] Routine Exams 07/29/21 Ordered ABG [ARTERIAL BLOOD GASES] Routine Lab 07/27/21 09:16 Completed ARTERIAL BLOOD GASES Stat Lab 07/27/21 06:42 Completed BLOOD CULTURE Stat Lab 07/27/21 06:46 Received CBC AM.LAB Lab 07/28/21 04:00 Ordered CBC W DIFF Stat Lab 07/27/21 06:15 Completed CMP AM.LAB Lab 07/28/21 04:00 Ordered CMP Stat Lab 07/27/21 06:15 Completed D-DIMER QUANTITATIVE Stat Lab 07/27/21 06:15 Completed INFLUENZA A+B KARTHIK Stat Lab 07/27/21 06:30 Completed LIPASE Stat Lab 07/27/21 06:15 Completed Lactic Acid Stat Lab 07/27/21 06:42 Completed MAGNESIUM AM.LAB Lab 07/28/21 04:00 Ordered MAGNESIUM Stat Lab 07/27/21 06:15 Completed NT PRO BNP Stat Lab 07/27/21 06:15 Completed PROTIME WITH INR Stat Lab 07/27/21 06:15 Completed TROPONIN Q3H Lab 07/27/21 06:15 Completed TROPONIN Q3H Lab 07/27/21 09:04 Completed TROPONIN Q3H Lab 07/27/21 11:00 Received TROPONIN Q3H Lab 07/27/21 15:00 Ordered TROPONIN Q3H Lab 07/27/21 18:00 Ordered TROPONIN Q3H Lab 07/27/21 21:00 Ordered Albuterol/Ipratropium 3ml Neb* [DUONEB 0.5-3 MG/3 ml Med 07/27/21 05:24 Discontinued Neb] 3 ml IH .STK-MED ONE Albuterol/Ipratropium 3ml Neb* [DUONEB 0.5-3 MG/3 ml Med 07/27/21 06:09 Discontinued Neb] 3 ml IH .STK-MED ONE Albuterol/Ipratropium 3ml Neb* [DUONEB 0.5-3 MG/3 ml Med 07/27/21 11:00 Active Neb] 3 ml IH Q4HRT Albuterol/Ipratropium 3ml Neb* [DUONEB 0.5-3 MG/3 ml Med 07/27/21 11:00 Discontinued Neb] 3 ml IH Q4HRT Albuterol/Ipratropium 3ml Neb* [DUONEB 0.5-3 MG/3 ml Med 07/27/21 05:23 Discontinued Neb] 3 ml IH STAT ONE Albuterol/Ipratropium 3ml Neb* [DUONEB 0.5-3 MG/3 ml Med 07/27/21 05:57 Discontinued Neb] 3 ml IH STAT ONE Azithromycin 500 mg/250 ml [Zithromax 500 MG/ 250 ML Med 07/27/21 11:30 Active NaCl Premix] 500 mg in 250 ml IV DAILY Ceftriaxone 1 GM/50 ML PREMIX* [ROCEPHIN 1 Gm-D5w 50 ml Med 07/27/21 11:30 Active Bag] 1 g in 50 ml IV DAILY Enoxaparin Sodium [Enoxaparin Sodium] Med 07/27/21 08:30 Discontinued 120 mg SQ .STK-MED ONE Enoxaparin Sodium [Enoxaparin Sodium] Med 07/27/21 08:08 Discontinued 120 mg SQ STAT STA Enoxaparin Sodium [Enoxaparin Sodium] Med 07/27/21 22:00 Discontinued See Dose Instructions SQ BID Famotidine 20 mg Vial [Pepcid 20 MG VIAL] Med 07/27/21 07:45 Discontinued 20 mg IV .STK-MED ONE Famotidine 20 mg Vial [Pepcid 20 MG VIAL] Med 07/27/21 07:42 Discontinued 20 mg IV STAT ONE NaCl 0.9% 1000 ml [Sodium Chloride 0.9% 1000 ML] 1,000 Med 07/27/21 08:00 Discontinued ml IV 50 mls/hr Pantoprazole 40 mg [Protonix 40 mg IV] Med 07/27/21 07:45 Discontinued 40 mg IV .STK-MED ONE Pantoprazole 40 mg [Protonix 40 mg IV] Med 07/27/21 07:42 Discontinued 40 mg IV STAT ONE BiPap/CPAP STAT RT 07/27/21 09:18 Active Oxygen Venti-Mask 50% RT 07/27/21 08:00 Active Pulse Oximetry ROUTINE RT 07/27/21 08:00 Active Respiratory Therapy Assessment DAILY RT 07/27/21 05:42 Active Transfer Order Routine Transfer 07/27/21 Completed Code(s): E66.2 - MORBID (SEVERE) OBESITY WITH ALVEOLAR HYPOVENTILATION (2) Hypoxia Current Visit: Yes Status: Acute Code(s): R09.02 - HYPOXEMIA (3) SOB (shortness of breath) Current Visit: Yes Status: Acute Code(s): R06.02 - SHORTNESS OF BREATH
[2021-07-27] MEDS: Zithromax 500 MG/ 250 ML NaCl Premix 500 MG/250 ML IVPB IV SCH (12:53)
[2021-07-27] MEDS ORDERED: Ventolin Hfa MDI IH PRN (13:35)
[2021-07-27] MEDS ORDERED: ZYLOPRIM 300 MG PO SCH (14:00)
[2021-07-27] MEDS: BUMEX 1 MG IV SCH ×2 (14:42→22:00)
[2021-07-27] MEDS: ELIQUIS 2.5 MG TABLET PO SCH ×2 (14:50→21:48)
[2021-07-27] MEDS: ATARAX 25 MG PO SCH ×2 (15:43→21:48)
[2021-07-27] MEDS: solu-MEDROL 40 MG, Sterile H2O 10 ml 2 ML IV SCH ×6 (16:27→21:50)
[2021-07-27] MEDS: ROCEPHIN 1 Gm-D5w 50 ml Bag** 1 G/50 ML IVPB IV SCH (16:58)
[2021-07-27] MEDS: Singulair 10 MG PO SCH (21:48)
[2021-07-27] MEDS: ZYLOPRIM 300 MG PO SCH (21:48)
[2021-07-27] MEDS ORDERED: HYDROXYZINE HCL 50 MG PO SCH (22:00)
[2021-07-27] MEDS ORDERED: ENOXAPARIN SODIUM SQ SCH (22:00)
[2021-07-28] MEDS: DUONEB 0.5-3 MG/3 ml Neb IH SCH ×5 (02:27→19:06)
--- NOTE | 2021-07-28 05:09 | PCM.NOTE ---
Date and Time: 07/28/21 0506 Subjective Assessment: still very short of breath, no fever. otherwise doing ok - Review of Systems Constitutional: Lethargy, Weakness, No Fever, No Chills Eyes: No Symptoms Ears, Nose, & Throat: No Symptoms Respiratory: Orthopnea, Short Of Breath, Wheezing, No Cough Cardiac: No Chest Pain, No Edema, No Syncope Abdominal/Gastrointestinal: No Abdominal Pain, No Nausea, No Vomiting, No Diarrhea Genitourinary Symptoms: No Dysuria Musculoskeletal: No Back Pain, No Neck Pain Skin: No Rash Neurological: No Dizziness, No Focal Weakness, No Sensory Changes Psychological: No Symptoms Endocrine: No Symptoms Hematologic/Lymphatic: No Symptoms Immunological/Allergic: No Symptoms Objective Exam General Appearance: moderate distress, alert Neurologic Exam: alert, oriented x 3, cooperative, normal mood/affect, sensation nml, No motor deficits Skin Exam: normal color, warm, dry Eye Exam: PERRL, EOMI, eyes nml inspection Ears, Nose, Throat Exam: normal ENT inspection, pharynx normal, moist mucous membranes Neck Exam: normal inspection, non-tender, supple, full range of motion Respiratory Exam: diminished breath sounds, crackles/rales, rhonchi, wheezing, No respiratory distress Cardiovascular Exam: regular rate/rhythm, normal heart sounds Gastrointestinal/Abdomen Exam: soft, No tenderness, No mass Extremity Exam: normal inspection, normal range of motion Back Exam: normal inspection, normal range of motion, No CVA tenderness, No vertebral tenderness Pelvic Exam: deferred Rectal Exam: deferred OBJECTIVE DATA Vital Signs: Vital Signs - 24 hr Temp Pulse Resp BP Pulse Ox 07/28/21 04:14 91 L 07/28/21 04:00 97.3 F 69 16 142/75 07/28/21 02:27 68 16 90 L 07/28/21 00:00 97.8 F 68 16 130/61 88 L 07/27/21 21:59 74 16 90 L 07/27/21 19:59 97.9 F 71 20 140/67 83 L 07/27/21 18:13 85 20 96 07/27/21 16:00 97.9 F 82 18 140/67 91 L 07/27/21 12:00 97.7 F 82 20 179/85 07/27/21 11:54 93 L 07/27/21 11:27 97.7 F 82 28 H 179/85 96 09/18/21 11:01 97.7 F 82 28 H 179/85 96 07/27/21 10:11 97.4 F 84 20 160/81 98 07/27/21 09:04 97.8 F 84 24 164/88 94 L 07/27/21 08:06 78 20 169/85 97 07/27/21 08:00 96 07/27/21 07:19 99.2 F 77 20 148/65 92 L 07/27/21 07:11 98 07/27/21 06:14 85 22 153/80 98 07/27/21 06:12 83 20 98 07/27/21 05:57 98 07/27/21 05:28 91 H 19 87 L 07/27/21 05:14 99.1 F 86 26 H 176/93 92 L Pain Assessment - Last Documented Pain Intensity 0 Intake and Output: Intake & Output 07/25/21 07/26/21 07/27/21 07/28/21 11:59 11:59 11:59 11:59 Intake Total 1190 Output Total 3500 Balance -2310 Weight 222.6 kg Lab Results: Lab Results-Last 24 Hours 07/27/21 07/27/21 07/27/21 Range/Units 06:15 06:15 06:15 WBC 7.6 (4.0-10.5) K/mm3 RBC 4.76 (4.1-5.4) M/mm3 Hgb 13.1 (12.0-16.0) gm/dl Hct 45.6 (35-47) % MCV 95.8 (78-100) fl MCH 27.5 (26-32) pg MCHC 28.7 L (32-36) g/dl RDW 16.7 H (11.5-14.0) % Plt Count 147 L (150-450) K/mm3 MPV 10.9 (7.5-11.0) fl Gran % 83.1 H (36.0-66.0) % Eos # (Auto) 0.13 (0-0.5) Absolute Lymphs (auto) 0.65 L (1.0-4.6) Absolute Monos (auto) 0.49 (0.0-1.3) Lymphocytes % 8.5 L (24.0-44.0) % Monocytes % 6.4 (0.0-12.0) % Eosinophils % 1.7 (0.00-5.0) % Basophils % 0.3 (0.0-0.4) % Absolute Granulocytes 6.32 (1.4-6.9) Basophils # 0.02 (0-0.4) PT 14.4 H (9.4-12.5) SECONDS INR 1.22 (0.8-3.0) D-Dimer 2287 H* (215-500) ng/mL Puncture Site pCO2 (35-45) mmHg pO2 (75-100) mmHg Base Excess (-2.0-2.0) O2 Saturation (94-100) g/dF ABG pH (7.35-7.45) ABG HCO3 (22-28) ABG O2 Sat (Measured) (95-100) % Nam Test A-a Gradient a/A Ratio Hemoglobin Carboxyhemoglobin (0.0-6.9) % THgb Methemoglobin (1.4-1.5) % Temperature C POC O2 Flow Rate % Inspiratory BiPAP Expiratory BiPAP Sodium 141 (137-145) mmol/L Potassium 4.0 (3.5-5.1) mmol/L Chloride 95 L (98-107) mmol/L Carbon Dioxide 39 H (22-30) mmol/L Anion Gap 10.2 (5-15) MEQ/L BUN 15 (7-17) mg/dL Creatinine 0.63 (0.52-1.04) mg/dL Estimated GFR > 60.0 ML/MIN Glucose 167 H (74-106) mg/dL Lactic Acid (0.4-2.0) Calcium 8.6 (8.4-10.2) mg/dL Magnesium (1.6-2.3) mg/dL Total Bilirubin 1.70 H (0.2-1.3) mg/dL AST 106 H (14-36) U/L ALT 27 (0-35) U/L Alkaline Phosphatase 99 (38-126) U/L Troponin I (0.000-0.034) ng/mL NT-Pro-B Natriuret Pep 1740 H (0-900) pg/mL Serum Total Protein 6.8 (6.3-8.2) g/dL Albumin 3.6 (3.5-5.0) g/dL Lipase 26 (23-300) U/L Influenza Type A Ag (NEGATIVE) Influenza Type B Ag (NEGATIVE) SARS-CoV-2 (PCR) (NEGATIVE) Slides for Path Review YES 07/27/21 07/27/21 07/27/21 Range/Units 06:15 06:15 06:30 WBC (4.0-10.5) K/mm3 RBC (4.1-5.4) M/mm3 Hgb (12.0-16.0) gm/dl Hct (35-47) % MCV (78-100) fl MCH (26-32) pg MCHC (32-36) g/dl RDW (11.5-14.0) % Plt Count (150-450) K/mm3 MPV (7.5-11.0) fl Gran % (36.0-66.0) % Eos # (Auto) (0-0.5) Absolute Lymphs (auto) (1.0-4.6) Absolute Monos (auto) (0.0-1.3) Lymphocytes % (24.0-44.0) % Monocytes % (0.0-12.0) % Eosinophils % (0.00-5.0) % Basophils % (0.0-0.4) % Absolute Granulocytes (1.4-6.9) Basophils # (0-0.4) PT (9.4-12.5) SECONDS INR (0.8-3.0) D-Dimer (215-500) ng/mL Puncture Site pCO2 (35-45) mmHg pO2 (75-100) mmHg Base Excess (-2.0-2.0) O2 Saturation (94-100) g/dF ABG pH (7.35-7.45) ABG HCO3 (22-28) ABG O2 Sat (Measured) (95-100) % Nam Test A-a Gradient a/A Ratio Hemoglobin Carboxyhemoglobin (0.0-6.9) % THgb Methemoglobin (1.4-1.5) % Temperature C POC O2 Flow Rate % Inspiratory BiPAP Expiratory BiPAP Sodium (137-145) mmol/L Potassium (3.5-5.1) mmol/L Chloride (98-107) mmol/L Carbon Dioxide (22-30) mmol/L Anion Gap (5-15) MEQ/L BUN (7-17) mg/dL Creatinine (0.52-1.04) mg/dL Estimated GFR ML/MIN Glucose (74-106) mg/dL Lactic Acid (0.4-2.0) Calcium (8.4-10.2) mg/dL Magnesium 2.0 (1.6-2.3) mg/dL Total Bilirubin (0.2-1.3) mg/dL AST (14-36) U/L ALT (0-35) U/L Alkaline Phosphatase (38-126) U/L Troponin I 0.018 (0.000-0.034) ng/mL NT-Pro-B Natriuret Pep (0-900) pg/mL Serum Total Protein (6.3-8.2) g/dL Albumin (3.5-5.0) g/dL Lipase (23-300) U/L Influenza Type A Ag NEGATIVE (NEGATIVE) Influenza Type B Ag NEGATIVE (NEGATIVE) SARS-CoV-2 (PCR) (NEGATIVE) Slides for Path Review 07/27/21 07/27/21 07/27/21 Range/Units 06:42 08:18 09:04 WBC (4.0-10.5) K/mm3 RBC (4.1-5.4) M/mm3 Hgb (12.0-16.0) gm/dl Hct (35-47) % MCV (78-100) fl MCH (26-32) pg MCHC (32-36) g/dl RDW (11.5-14.0) % Plt Count (150-450) K/mm3 MPV (7.5-11.0) fl Gran % (36.0-66.0) % Eos # (Auto) (0-0.5) Absolute Lymphs (auto) (1.0-4.6) Absolute Monos (auto) (0.0-1.3) Lymphocytes % (24.0-44.0) % Monocytes % (0.0-12.0) % Eosinophils % (0.00-5.0) % Basophils % (0.0-0.4) % Absolute Granulocytes (1.4-6.9) Basophils # (0-0.4) PT (9.4-12.5) SECONDS INR (0.8-3.0) D-Dimer (215-500) ng/mL Puncture Site RIGHT RADIAL pCO2 81 H* (35-45) mmHg pO2 143 H* (75-100) mmHg Base Excess 11.0 H (-2.0-2.0) O2 Saturation 96.0 (94-100) g/dF ABG pH 7.31 L (7.35-7.45) ABG HCO3 40.8 H* (22-28) ABG O2 Sat (Measured) 99.4 (95-100) % Nam Test YES A-a Gradient 469 a/A Ratio 0.23 Hemoglobin 13.7 Carboxyhemoglobin 2.2 (0.0-6.9) % THgb Methemoglobin 1.2 L (1.4-1.5) % Temperature 37.0 C POC O2 Flow Rate 100 % Inspiratory BiPAP Expiratory BiPAP Sodium (137-145) mmol/L Potassium 4.3 (3.5-5.1) mmol/L Chloride (98-107) mmol/L Carbon Dioxide (22-30) mmol/L Anion Gap (5-15) MEQ/L BUN (7-17) mg/dL Creatinine (0.52-1.04) mg/dL Estimated GFR ML/MIN Glucose (74-106) mg/dL Lactic Acid 0.7 (0.4-2.0) Calcium (8.4-10.2) mg/dL Magnesium (1.6-2.3) mg/dL Total Bilirubin (0.2-1.3) mg/dL AST (14-36) U/L ALT (0-35) U/L Alkaline Phosphatase (38-126) U/L Troponin I < 0.012 (0.000-0.034) ng/mL NT-Pro-B Natriuret Pep (0-900) pg/mL Serum Total Protein (6.3-8.2) g/dL Albumin (3.5-5.0) g/dL Lipase (23-300) U/L Influenza Type A Ag (NEGATIVE) Influenza Type B Ag (NEGATIVE) SARS-CoV-2 (PCR) NEGATIVE (NEGATIVE) Slides for Path Review 07/27/21 07/27/21 07/27/21 Range/Units 09:16 11:00 15:10 WBC (4.0-10.5) K/mm3 RBC (4.1-5.4) M/mm3 Hgb (12.0-16.0) gm/dl Hct (35-47) % MCV (78-100) fl MCH (26-32) pg MCHC (32-36) g/dl RDW (11.5-14.0) % Plt Count (150-450) K/mm3 MPV (7.5-11.0) fl Gran % (36.0-66.0) % Eos # (Auto) (0-0.5) Absolute Lymphs (auto) (1.0-4.6) Absolute Monos (auto) (0.0-1.3) Lymphocytes % (24.0-44.0) % Monocytes % (0.0-12.0) % Eosinophils % (0.00-5.0) % Basophils % (0.0-0.4) % Absolute Granulocytes (1.4-6.9) Basophils # (0-0.4) PT (9.4-12.5) SECONDS INR (0.8-3.0) D-Dimer (215-500) ng/mL Puncture Site RIGHT BRACHIAL pCO2 74 H* (35-45) mmHg pO2 140 H* (75-100) mmHg Base Excess 10.0 H (-2.0-2.0) O2 Saturation 96.4 (94-100) g/dF ABG pH 7.33 L (7.35-7.45) ABG HCO3 39.0 H* (22-28) ABG O2 Sat (Measured) 99.4 (95-100) % Nam Test NOT APPLICABLE A-a Gradient 195 a/A Ratio 0.42 Hemoglobin 13.8 Carboxyhemoglobin 1.9 (0.0-6.9) % THgb Methemoglobin 1.0 L (1.4-1.5) % Temperature 37.0 C POC O2 Flow Rate 60 % Inspiratory BiPAP 12 Expiratory BiPAP 5 Sodium (137-145) mmol/L Potassium 4.6 (3.5-5.1) mmol/L Chloride (98-107) mmol/L Carbon Dioxide (22-30) mmol/L Anion Gap (5-15) MEQ/L BUN (7-17) mg/dL Creatinine (0.52-1.04) mg/dL Estimated GFR ML/MIN Glucose (74-106) mg/dL Lactic Acid (0.4-2.0) Calcium (8.4-10.2) mg/dL Magnesium (1.6-2.3) mg/dL Total Bilirubin (0.2-1.3) mg/dL AST (14-36) U/L ALT (0-35) U/L Alkaline Phosphatase (38-126) U/L Troponin I < 0.012 < 0.012 (0.000-0.034) ng/mL NT-Pro-B Natriuret Pep (0-900) pg/mL Serum Total Protein (6.3-8.2) g/dL Albumin (3.5-5.0) g/dL Lipase (23-300) U/L Influenza Type A Ag (NEGATIVE) Influenza Type B Ag (NEGATIVE) SARS-CoV-2 (PCR) (NEGATIVE) Slides for Path Review 07/27/21 Range/Units 18:27 WBC (4.0-10.5) K/mm3 RBC (4.1-5.4) M/mm3 Hgb (12.0-16.0) gm/dl Hct (35-47) % MCV (78-100) fl MCH (26-32) pg MCHC (32-36) g/dl RDW (11.5-14.0) % Plt Count (150-450) K/mm3 MPV (7.5-11.0) fl Gran % (36.0-66.0) % Eos # (Auto) (0-0.5) Absolute Lymphs (auto) (1.0-4.6) Absolute Monos (auto) (0.0-1.3) Lymphocytes % (24.0-44.0) % Monocytes % (0.0-12.0) % Eosinophils % (0.00-5.0) % Basophils % (0.0-0.4) % Absolute Granulocytes (1.4-6.9) Basophils # (0-0.4) PT (9.4-12.5) SECONDS INR (0.8-3.0) D-Dimer (215-500) ng/mL Puncture Site pCO2 (35-45) mmHg pO2 (75-100) mmHg Base Excess (-2.0-2.0) O2 Saturation (94-100) g/dF ABG pH (7.35-7.45) ABG HCO3 (22-28) ABG O2 Sat (Measured) (95-100) % Nam Test A-a Gradient a/A Ratio Hemoglobin Carboxyhemoglobin (0.0-6.9) % THgb Methemoglobin (1.4-1.5) % Temperature C POC O2 Flow Rate % Inspiratory BiPAP Expiratory BiPAP Sodium (137-145) mmol/L Potassium (3.5-5.1) mmol/L Chloride (98-107) mmol/L Carbon Dioxide (22-30) mmol/L Anion Gap (5-15) MEQ/L BUN (7-17) mg/dL Creatinine (0.52-1.04) mg/dL Estimated GFR ML/MIN Glucose (74-106) mg/dL Lactic Acid (0.4-2.0) Calcium (8.4-10.2) mg/dL Magnesium (1.6-2.3) mg/dL Total Bilirubin (0.2-1.3) mg/dL AST (14-36) U/L ALT (0-35) U/L Alkaline Phosphatase (38-126) U/L Troponin I < 0.012 (0.000-0.034) ng/mL NT-Pro-B Natriuret Pep (0-900) pg/mL Serum Total Protein (6.3-8.2) g/dL Albumin (3.5-5.0) g/dL Lipase (23-300) U/L Influenza Type A Ag (NEGATIVE) Influenza Type B Ag (NEGATIVE) SARS-CoV-2 (PCR) (NEGATIVE) Slides for Path Review Radiology Exams: Radiology Procedures Category Date Time Status CHEST 1 VIEW (PORTABLE) Stat Exams 07/27/21 05:59 Completed CHEST 1 VIEW (PORTABLE) Urgent Exams 07/28/21 05:00 Ordered CHEST 2 VIEWS (PA AND LAT) Routine Exams 07/28/21 08:15 Stop Req ECHO W/2D AND DOPPLER [US] Routine Exams 07/29/21 Ordered RAD/CHEST 1 VIEW (PORTABLE) Indication: Short of breath. Comparison: None Portable chest inflated with diffuse bilateral hazy interstitial alveolar opacities, small right base effusion/atelectasis, cardiomegaly, and bilateral hilar calcified nodes. Bony thorax intact. Assessment/Plan (1) Hypoventilation associated with obesity Current Visit: Yes Status: Acute Qualifiers: Obesity classification: adult class 3 (BMI >= 40) Serious obesity comorbidity presence: with serious comorbidity Body mass index: BMI 70 or greater Qualified Code(s): E66.2 - Morbid (severe) obesity with alveolar hypoventilation; Z68.45 - Body mass index [BMI] 70 or greater, adult Assessment & Plan: Chief Complaint Diagnosis shortness of breath for 2-3 days Allergies Allergy/AdvReac Type Severity Reaction Status Date / Time Penicillins Allergy Hives Verified 07/27/21 12:53 Vital Signs (Last 24 hours) Temp Pulse Resp BP Pulse Ox 07/28/21 04:14 91 L 07/28/21 04:00 97.3 F 69 16 142/75 07/28/21 02:27 68 16 90 L 07/28/21 00:00 97.8 F 68 16 130/61 88 L 07/27/21 21:59 74 16 90 L 07/27/21 19:59 97.9 F 71 20 140/67 83 L 07/27/21 18:13 85 20 96 07/27/21 16:00 97.9 F 82 18 140/67 91 L 07/27/21 12:00 97.7 F 82 20 179/85 07/27/21 11:54 93 L 07/27/21 11:27 97.7 F 82 28 H 179/85 96 07/27/21 11:01 97.7 F 82 28 H 179/85 96 07/27/21 10:11 97.4 F 84 20 160/81 98 07/27/21 09:04 97.8 F 84 24 164/88 94 L 07/27/21 08:06 78 20 169/85 97 07/27/21 08:00 96 07/27/21 07:19 99.2 F 77 20 148/65 92 L 07/27/21 07:11 98 07/27/21 06:14 85 22 153/80 98 07/27/21 06:12 83 20 98 07/27/21 05:57 98 07/27/21 05:28 91 H 19 87 L 07/27/21 05:14 99.1 F 86 26 H 176/93 92 L Home Medications Medication Instructions Recorded Confirmed Last Taken Type Albuterol Sulfate [Ventolin Hfa] 2 puffs IH QID PRN 07/27/21 07/27/21 Unknown History Allopurinol 300 mg [Zyloprim 300 mg PO DAILY 07/27/21 07/27/21 Unknown History 300 mg] Apixaban [Eliquis] 5 mg PO DAILY 07/27/21 07/27/21 Unknown History Escitalopram Oxalate 20 mg PO DAILY 07/27/21 07/27/21 Unknown History Montelukast Sodium 10 mg 10 mg PO HS 07/27/21 07/27/21 Unknown History [Singulair 10 MG] hydrOXYzine HCL [Hydroxyzine HCl] 50 mg PO BID 07/27/21 07/27/21 Unknown History Current Medications Generic Name Dose Route Start Last Admin Trade Name Freq PRN Reason Stop Dose Admin Albuterol Sulfate 2 puff 07/27/21 13:57 Ventolin Common Canister IH 08/26/21 13:56 QIDPRN PRN wheezes Albuterol/Ipratropium 3 ml 07/27/21 11:00 07/28/21 02:27 Duoneb 0.5-3 Mg/3 Ml Neb IH 08/26/21 10:59 3 ml Q4HRT ERNESTO Administration Allopurinol 300 mg 07/27/21 22:00 07/27/21 21:48 Zyloprim 300 Mg PO 08/26/21 13:59 300 mg HS ERNESTO Administration Apixaban 5 mg 07/27/21 13:00 07/27/21 21:48 Eliquis 2.5 Mg Tablet PO 08/26/21 12:59 5 mg BID ERNESTO Administration Bumetanide 1 mg 07/27/21 13:00 07/27/21 22:00 Bumex 1 Mg IV 08/26/21 12:59 1 mg BID ERNESTO Administration Methylprednisolone Sodium 0 mg 07/27/21 14:00 07/27/21 21:48 Succinate 40 mg/ Sterile Water IV 07/28/21 06:01 40 mg 2 ml Q8HT ERNESTO Administration Methylprednisolone Sodium 0 mg 07/27/21 22:00 07/27/21 21:50 Succinate 40 mg/ Sterile Water IV 08/26/21 21:59 Not Given 2 ml Q12HT ERNESTO Escitalopram Oxalate 20 mg 07/28/21 22:00 Lexapro 10 Mg PO 08/27/21 21:59 HS ERNESTO Hydroxyzine HCl 50 mg 07/27/21 14:00 07/27/21 21:48 Atarax 25 Mg PO 08/26/21 13:59 50 mg BID ERNESTO Administration Ceftriaxone Sodium/Dextrose 1 g in 50 mls @ 100 mls/hr 07/27/21 11:30 07/27 16:58 Rocephin 1 Gm-D5w 50 Ml Bag IV 07/30/21 11:29 100 mls/hr DAILY ERNESTO Administration Azithromycin 500 mg in 250 mls @ 250 mls/hr 07/27/21 11:30 07/27/21 12:53 Zithromax 500 Mg/ 250 Ml Nacl Premix IV 08/26/21 11:29 250 mls/hr DAILY ERNESTO Administration Montelukast Sodium 10 mg 07/27/21 22:00 07/27/21 21:48 Singulair 10 Mg PO 08/26/21 21:59 10 mg HS ERNESTO Administration Discontinued Medications Generic Name Dose Route Start Last Admin Trade Name Freq PRN Reason Stop Dose Admin Albuterol/Ipratropium Confirm 07/27/21 05:24 Duoneb 0.5-3 Mg/3 Ml Neb Administered 07/27/21 05:25 Dose 3 ml IH .STK-MED ONE Albuterol/Ipratropium 3 ml 07/27/21 05:23 07/27/21 05:28 Duoneb 0.5-3 Mg/3 Ml Neb IH 07/27/21 05:24 3 ml STAT ONE Administration Albuterol/Ipratropium 3 ml 07/27/21 05:57 07/27/21 06:12 Duoneb 0.5-3 Mg/3 Ml Neb IH 07/27/21 05:58 3 ml STAT ONE Administration Albuterol/Ipratropium Confirm 07/27/21 06:09 Duoneb 0.5-3 Mg/3 Ml Neb Administered 07/27/21 06:10 Dose 3 ml IH .STK-MED ONE Albuterol/Ipratropium 3 ml 07/27/21 11:00 07/27/21 11:50 Duoneb 0.5-3 Mg/3 Ml Neb IH 08/26/21 10:59 Not Given Q4HRT ERNESTO Allopurinol 300 mg 07/27/21 14:00 07/27/21 15:44 Zyloprim 300 Mg PO 08/26/21 13:59 Not Given DAILY ERNESTO Enoxaparin Sodium 0 mg 07/27/21 22:00 Enoxaparin Sodium SQ 08/26/21 21:59 BID ERNESTO Enoxaparin Sodium 120 mg 07/27/21 08:08 07/27/21 08:30 Enoxaparin Sodium SQ 07/27/21 08:09 120 mg STAT STA Administration Enoxaparin Sodium Confirm 07/27/21 08:30 Enoxaparin Sodium Administered 07/27/21 08:31 Dose 120 mg SQ .STK-MED ONE Famotidine 20 mg 07/27/21 07:42 07/27/21 07:46 Pepcid 20 Mg Vial IV 07/27/21 07:43 20 mg STAT ONE Administration Famotidine Confirm 07/27/21 07:45 Pepcid 20 Mg Vial Administered 07/27/21 07:46 Dose 20 mg IV .STK-MED ONE Sodium Chloride 1,000 mls @ 50 mls/hr 07/27/21 08:00 07/27/21 15:45 Sodium Chloride 0.9% 1000 Ml IV 08/26/21 07:59 Not Given .Q20H ERNESTO Pantoprazole Sodium 40 mg 07/27/21 07:42 07/27/21 07:45 Protonix 40 Mg Iv IV 07/27/21 07:43 40 mg STAT ONE Administration Pantoprazole Sodium Confirm 07/27/21 07:45 Protonix 40 Mg Iv Administered 07/27/21 07:46 Dose 40 mg IV .STK-MED ONE Intake & Output (Last 24 hours) 07/25/21 07/26/21 07/27/21 07/28/21 11:59 11:59 11:59 11:59 Intake Total 1190 Output Total 3500 Balance -2310 Weight 222.6 kg Microbiology Results (Last 24 hours) 07/27/21 06:46 Blood Blood Culture Gram Stain - Pending 07/27/21 06:46 Blood Blood Culture - Pending 07/27/21 06:15 Blood Blood Culture Gram Stain - Pending 07/27/21 06:15 Blood Blood Culture - Pending Laboratory Results (Last 24 hours) 07/27/21 07/27/21 07/27/21 18:27 15:10 11:00 WBC RBC Hgb Hct MCV MCH MCHC RDW Plt Count MPV Gran % Eos # (Auto) Absolute Lymphs (auto) Absolute Monos (auto) Lymphocytes % Monocytes % Eosinophils % Basophils % Absolute Granulocytes Basophils # PT INR D-Dimer Puncture Site pCO2 pO2 Base Excess O2 Saturation ABG pH ABG HCO3 ABG O2 Sat (Measured) Nam Test A-a Gradient a/A Ratio Hemoglobin Carboxyhemoglobin Methemoglobin Temperature POC O2 Flow Rate Inspiratory BiPAP Expiratory BiPAP Sodium Potassium Chloride Carbon Dioxide Anion Gap BUN Creatinine Estimated GFR Glucose Lactic Acid Calcium Magnesium Total Bilirubin AST ALT Alkaline Phosphatase Troponin I < 0.012 < 0.012 < 0.012 NT-Pro-B Natriuret Pep Serum Total Protein Albumin Lipase Influenza Type A Ag Influenza Type B Ag SARS-CoV-2 (PCR) Slides for Path Review 07/27/21 07/27/21 07/27/21 09:16 09:04 08:18 WBC RBC Hgb Hct MCV MCH MCHC RDW Plt Count MPV Gran % Eos # (Auto) Absolute Lymphs (auto) Absolute Monos (auto) Lymphocytes % Monocytes % Eosinophils % Basophils % Absolute Granulocytes Basophils # PT INR D-Dimer Puncture Site RIGHT BRACHIAL pCO2 74 H* pO2 140 H* Base Excess 10.0 H O2 Saturation 96.4 ABG pH 7.33 L ABG HCO3 39.0 H* ABG O2 Sat (Measured) 99.4 Nam Test NOT APPLICABLE A-a Gradient 195 a/A Ratio 0.42 Hemoglobin 13.8 Carboxyhemoglobin 1.9 Methemoglobin 1.0 L Temperature 37.0 POC O2 Flow Rate 60 Inspiratory BiPAP 12 Expiratory BiPAP 5 Sodium Potassium 4.6 Chloride Carbon Dioxide Anion Gap BUN Creatinine Estimated GFR Glucose Lactic Acid Calcium Magnesium Total Bilirubin AST ALT Alkaline Phosphatase Troponin I < 0.012 NT-Pro-B Natriuret Pep Serum Total Protein Albumin Lipase Influenza Type A Ag Influenza Type B Ag SARS-CoV-2 (PCR) NEGATIVE Slides for Path Review 07/27/21 07/27/21 07/27/21 06:42 06:30 06:15 WBC RBC Hgb Hct MCV MCH MCHC RDW Plt Count MPV Gran % Eos # (Auto) Absolute Lymphs (auto) Absolute Monos (auto) Lymphocytes % Monocytes % Eosinophils % Basophils % Absolute Granulocytes Basophils # PT INR D-Dimer Puncture Site RIGHT RADIAL pCO2 81 H* pO2 143 H* Base Excess 11.0 H O2 Saturation 96.0 ABG pH 7.31 L ABG HCO3 40.8 H* ABG O2 Sat (Measured) 99.4 Nam Test YES A-a Gradient 469 a/A Ratio 0.23 Hemoglobin 13.7 Carboxyhemoglobin 2.2 Methemoglobin 1.2 L Temperature 37.0 POC O2 Flow Rate 100 Inspiratory BiPAP Expiratory BiPAP Sodium Potassium 4.3 Chloride Carbon Dioxide Anion Gap BUN Creatinine Estimated GFR Glucose Lactic Acid 0.7 Calcium Magnesium 2.0 Total Bilirubin AST ALT Alkaline Phosphatase Troponin I NT-Pro-B Natriuret Pep Serum Total Protein Albumin Lipase Influenza Type A Ag NEGATIVE Influenza Type B Ag NEGATIVE SARS-CoV-2 (PCR) Slides for Path Review 07/27/21 07/27/21 07/27/21 06:15 06:15 06:15 WBC RBC Hgb Hct MCV MCH MCHC RDW Plt Count MPV Gran % Eos # (Auto) Absolute Lymphs (auto) Absolute Monos (auto) Lymphocytes % Monocytes % Eosinophils % Basophils % Absolute Granulocytes Basophils # PT 14.4 H INR 1.22 D-Dimer 2287 H* Puncture Site pCO2 pO2 Base Excess O2 Saturation ABG pH ABG HCO3 ABG O2 Sat (Measured) Nam Test A-a Gradient a/A Ratio Hemoglobin Carboxyhemoglobin Methemoglobin Temperature POC O2 Flow Rate Inspiratory BiPAP Expiratory BiPAP Sodium 141 Potassium 4.0 Chloride 95 L Carbon Dioxide 39 H Anion Gap 10.2 BUN 15 Creatinine 0.63 Estimated GFR > 60.0 Glucose 167 H Lactic Acid Calcium 8.6 Magnesium Total Bilirubin 1.70 H AST 106 H ALT 27 Alkaline Phosphatase 99 Troponin I 0.018 NT-Pro-B Natriuret Pep 1740 H Serum Total Protein 6.8 Albumin 3.6 Lipase 26 Influenza Type A Ag Influenza Type B Ag SARS-CoV-2 (PCR) Slides for Path Review 07/27/21 06:15 WBC 7.6 RBC 4.76 Hgb 13.1 Hct 45.6 MCV 95.8 MCH 27.5 MCHC 28.7 L RDW 16.7 H Plt Count 147 L MPV 10.9 Gran % 83.1 H Eos # (Auto) 0.13 Absolute Lymphs (auto) 0.65 L Absolute Monos (auto) 0.49 Lymphocytes % 8.5 L Monocytes % 6.4 Eosinophils % 1.7 Basophils % 0.3 Absolute Granulocytes 6.32 Basophils # 0.02 PT INR D-Dimer Puncture Site pCO2 pO2 Base Excess O2 Saturation ABG pH ABG HCO3 ABG O2 Sat (Measured) Nam Test A-a Gradient a/A Ratio Hemoglobin Carboxyhemoglobin Methemoglobin Temperature POC O2 Flow Rate Inspiratory BiPAP Expiratory BiPAP Sodium Potassium Chloride Carbon Dioxide Anion Gap BUN Creatinine Estimated GFR Glucose Lactic Acid Calcium Magnesium Total Bilirubin AST ALT Alkaline Phosphatase Troponin I NT-Pro-B Natriuret Pep Serum Total Protein Albumin Lipase Influenza Type A Ag Influenza Type B Ag SARS-CoV-2 (PCR) Slides for Path Review YES Orders (Last 24 hours) Category Date Time Status Up Ad Nidhi ROUTINE Activity 07/27/21 08:00 Active Test Puller STAT Care 07/27/21 05:57 Completed Code Status Order ROUTINE Care 07/27/21 08:00 Active EKG-ER Only STAT Care 07/27/21 05:57 Completed Fall Protocol Q1H Care 07/27/21 08:02 Active IV Care Q6H Care 07/27/21 11:05 Active IV Insertion STAT Care 07/27/21 05:57 Completed Miscellaneous Nursing Order OM.NOW Care 07/27/21 08:00 Active Oxygen-ED Only NON-REBREATHER 100% Care 07/27/21 05:[address] in Observation ROUTINE Care 07/27/21 08:00 Active Pulse Oximetry (ED) STAT Care 07/27/21 05:57 Completed Weight,Daily 0600 Care 07/27/21 08:00 Active Heart-Healthy Diet Diet 07/27/21 Lunch Active CHEST 1 VIEW (PORTABLE) Stat Exams 07/27/21 05:59 Completed CHEST 1 VIEW (PORTABLE) Urgent Exams 07/28/21 05:00 Ordered CHEST 2 VIEWS (PA AND LAT) Routine Exams 07/28/21 08:15 Stop Req ECHO W/2D AND DOPPLER [US] Routine Exams 07/29/21 Ordered ABG [ARTERIAL BLOOD GASES] Routine Lab 07/27/21 09:16 Completed ARTERIAL BLOOD GASES Stat Lab 07/27/21 06:42 Completed BLOOD CULTURE Stat Lab 07/27/21 06:46 Received CBC AM.LAB Lab 07/28/21 04:00 Ordered CBC W DIFF Stat Lab 07/27/21 06:15 Completed CMP AM.LAB Lab 07/28/21 04:00 Ordered CMP Stat Lab 07/27/21 06:15 Completed D-DIMER QUANTITATIVE Stat Lab 07/27/21 06:15 Completed INFLUENZA A+B KARTHIK Stat Lab 07/27/21 06:30 Completed LIPASE Stat Lab 07/27/21 06:15 Completed Lactic Acid Stat Lab 07/27/21 06:42 Completed MAGNESIUM AM.LAB Lab 07/28/21 04:00 Ordered MAGNESIUM Stat Lab 07/27/21 06:15 Completed NT PRO BNP Stat Lab 07/27/21 06:15 Completed PROTIME WITH INR Stat Lab 07/27/21 06:15 Completed TROPONIN Q3H Lab 07/27/21 06:15 Completed TROPONIN Q3H Lab 07/27/21 09:04 Completed TROPONIN Q3H Lab 07/27/21 11:00 Completed TROPONIN Q3H Lab 07/27/21 15:10 Completed TROPONIN Q3H Lab 07/27/21 18:27 Completed Albuterol Common Canister [Ventolin Common Canister* Med 07/27/21 13:57 Active ] 2 puff IH QIDPRN PRN Albuterol/Ipratropium 3ml Neb* [DUONEB 0.5-3 MG/3 ml Med 07/27/21 05:24 Discontinued Neb] 3 ml IH .STK-MED ONE Albuterol/Ipratropium 3ml Neb* [DUONEB 0.5-3 MG/3 ml Med 07/27/21 06:09 Discontinued Neb] 3 ml IH .STK-MED ONE Albuterol/Ipratropium 3ml Neb* [DUONEB 0.5-3 MG/3 ml Med 07/27/21 11:00 Active Neb] 3 ml IH Q4HRT Albuterol/Ipratropium 3ml Neb* [DUONEB 0.5-3 MG/3 ml Med 07/27/21 11:00 Discontinued Neb] 3 ml IH Q4HRT Albuterol/Ipratropium 3ml Neb* [DUONEB 0.5-3 MG/3 ml Med 07/27/21 05:23 Discontinued Neb] 3 ml IH STAT ONE Albuterol/Ipratropium 3ml Neb* [DUONEB 0.5-3 MG/3 ml Med 07/27/21 05:57 Discontinued Neb] 3 ml IH STAT ONE Allopurinol 300 mg [Zyloprim 300 mg] Med 07/27/21 14:00 Discontinued 300 mg PO DAILY Allopurinol 300 mg [Zyloprim 300 mg] Med 07/27/21 22:00 Active 300 mg PO HS Apixaban [Eliquis 2.5 mg Tablet] Med 07/27/21 13:00 Active 5 mg PO BID Azithromycin 500 mg/250 ml [Zithromax 500 MG/ 250 ML Med 07/27/21 11:30 Active NaCl Premix] 500 mg in 250 ml IV DAILY Bumetanide 1 mg [Bumex 1 mg] Med 07/27/21 13:00 Active 1 mg IV BID Ceftriaxone 1 GM/50 ML PREMIX* [ROCEPHIN 1 Gm-D5w 50 ml Med 07/27/21 11:30 Active Bag] 1 g in 50 ml IV DAILY Enoxaparin Sodium [Enoxaparin Sodium] Med 07/27/21 08:30 Discontinued 120 mg SQ .STK-MED ONE Enoxaparin Sodium [Enoxaparin Sodium] Med 07/27/21 08:08 Discontinued 120 mg SQ STAT STA Enoxaparin Sodium [Enoxaparin Sodium] Med 07/27/21 22:00 Discontinued See Dose Instructions SQ BID Escitalopram Oxalate 10 mg [Lexapro 10 MG] Med 07/28/21 22:00 Active 20 mg PO HS Famotidine 20 mg Vial [Pepcid 20 MG VIAL] Med 07/27/21 07:45 Discontinued 20 mg IV .STK-MED ONE Famotidine 20 mg Vial [Pepcid 20 MG VIAL] Med 07/27/21 07:42 Discontinued 20 mg IV STAT ONE Hydroxyzine HCl 25 mg [Atarax 25 mg] Med 07/27/21 14:00 Active 50 mg PO BID Methylprednis Sod Succ 125 mg* [solu-MEDROL] 40 mg Med 07/27/21 22:00 Active Water For Injection,Sterile [Sterile H2O 10 ml] 2 ml IV Q12HT Methylprednis Sod Succ 125 mg* [solu-MEDROL] 40 mg Med 07/27/21 14:00 Active Water For Injection,Sterile [Sterile H2O 10 ml] 2 ml IV Q8HT Montelukast Sodium 10 mg [Singulair 10 MG] Med 07/27/21 22:00 Active 10 mg PO HS NaCl 0.9% 1000 ml [Sodium Chloride 0.9% 1000 ML] 1,000 Med 07/27/21 08:00 Discontinued ml IV 50 mls/hr Pantoprazole 40 mg [Protonix 40 mg IV] Med 07/27/21 07:45 Discontinued 40 mg IV .STK-MED ONE Pantoprazole 40 mg [Protonix 40 mg IV] Med 07/27/21 07:42 Discontinued 40 mg IV STAT ONE BiPap/CPAP ROUTINE RT 07/27/21 09:18 Active Oxygen Venti-Mask 50% RT 07/27/21 08:00 Active Pulse Oximetry .continuos RT 07/27/21 23:19 Active Pulse Oximetry ROUTINE RT 07/27/21 08:00 Completed Respiratory Therapy Assessment DAILY RT 07/27/21 05:42 Active Code(s): E66.2 - MORBID (SEVERE) OBESITY WITH ALVEOLAR HYPOVENTILATION (2) Hypoxia Current Visit: Yes Status: Acute Code(s): R09.02 - HYPOXEMIA (3) SOB (shortness of breath) Current Visit: Yes Status: Acute Code(s): R06.02 - SHORTNESS OF BREATH (4) D-dimer, elevated Current Visit: Yes Status: Acute Code(s): R79.89 - OTHER SPECIFIED ABNORMAL FINDINGS OF BLOOD CHEMISTRY
[2021-07-28 06:37] LABS: Hematocrit 44.4 % (35-47); Hemoglobin 12.6 gm/dl (12.0-16.0); Mean Cell Volume 97.4 fl (78-100); Mean Corpuscular Hemoglobin 27.6 pg (26-32); Mean Corpuscular Hgb Concent. 28.4 g/dl (32-36); Mean Platelet Volume 10.9 fl (7.5-11.0); Platelet Count 137 K/mm3 (150-450); Red Blood Count 4.56 M/mm3 (4.1-5.4); Red Cell Distribution Width 16.1 % (11.5-14.0); White Blood Count 3.9 K/mm3 (4.0-10.5)
[2021-07-28] MEDS: solu-MEDROL 40 MG, Sterile H2O 10 ml 2 ML IV SCH ×6 (06:53→21:24)
[2021-07-28 07:02] LABS: ALBUMIN 3.7 g/dL (3.5-5.0); ALKALINE PHOSPHATASE 101 U/L (38-126); BLOOD UREA NITROGEN 15 mg/dL (7-17); CHLORIDE 94 mmol/L (98-107); Calcium 8.4 mg/dL (8.4-10.2); Creatinine 1 0.53 mg/dL (0.52-1.04); EST GLOMERULAR FILTRATION RATE > 60.0 ML/MIN; Glucose 213 mg/dL (74-106); MAGNESIUM 2.2 mg/dL (1.6-2.3); Potassium 4.5 mmol/L (3.5-5.1); SGOT/AST 178 U/L (14-36); SGPT/ALT 98 U/L (0-35); SODIUM 140 mmol/L (137-145); Total Protein 6.8 g/dL (6.3-8.2)
[2021-07-28 07:10] LABS: Carbon Dioxide 40 mmol/L (22-30)
[2021-07-28 07:17] LABS: ANION GAP 10.5 MEQ/L (5-15)
--- NOTE | 2021-07-28 07:35 | XRAY ---
Indication: Short of breath. Comparison: One day earlier. Portable chest unchanged again demonstrating diffuse bilateral interstitial alveolar opacities, right base effusion/atelectasis, cardiomegaly, and mediastinal/hilar calcified nodes. No new cardiopulmonary abnormalities.
[2021-07-28 09:08] LABS: Slide Review YES
[2021-07-28] MEDS ORDERED: NON-FORMULARY ITEM (Escitalopram Oxalate [Escitalopram Oxalate] 20 MG) PO SCH (10:00)
[2021-07-28] MEDS: BUMEX 1 MG IV SCH ×2 (10:45→21:25)
[2021-07-28] MEDS: ROCEPHIN 1 Gm-D5w 50 ml Bag** 1 G/50 ML IVPB IV SCH (10:46)
[2021-07-28] MEDS: ATARAX 25 MG PO SCH ×2 (10:46→21:24)
[2021-07-28] MEDS: ELIQUIS 2.5 MG TABLET PO SCH ×2 (10:46→21:24)
[2021-07-28] MEDS: Zithromax 500 MG/ 250 ML NaCl Premix 500 MG/250 ML IVPB IV SCH (11:45)
[2021-07-28] MEDS ORDERED: TYLENOL 325 MG PO PRN (14:25)
[2021-07-28] MEDS ORDERED: MOTRIN 400 MG PO PRN (14:29)
[2021-07-28] MEDS ORDERED: Nicoderm CQ 21 MG TOP SCH (16:30)
[2021-07-28] MEDS ORDERED: Neurontin 100 MG PO ONE (17:50)
[2021-07-28] MEDS: Singulair 10 MG PO SCH (21:24)
[2021-07-28] MEDS: Lexapro 10 MG PO SCH (21:24)
[2021-07-28] MEDS: ZYLOPRIM 300 MG PO SCH (21:24)
[2021-07-28] MEDS: Neurontin 100 MG PO SCH (21:27)
[2021-07-29] MEDS ORDERED: TYLENOL EXTRA STRENGTH 500 MG PO ONE (01:15)
[2021-07-29] MEDS: VENTOLIN COMMON CANISTER IH PRN ×2 (01:48→23:18)
[2021-07-29] MEDS: DUONEB 0.5-3 MG/3 ml Neb IH SCH ×4 (06:27→19:23)
[2021-07-29 07:24] LABS: Hematocrit 45.5 % (35-47); Hemoglobin 12.7 gm/dl (12.0-16.0); Mean Cell Volume 98.1 fl (78-100); Mean Corpuscular Hemoglobin 27.4 pg (26-32); Mean Corpuscular Hgb Concent. 27.9 g/dl (32-36); Mean Platelet Volume 11.2 fl (7.5-11.0); Platelet Count 143 K/mm3 (150-450); Red Blood Count 4.64 M/mm3 (4.1-5.4); Red Cell Distribution Width 16.2 % (11.5-14.0); White Blood Count 7.1 K/mm3 (4.0-10.5)
[2021-07-29] MEDS ORDERED: MORPHINE SULFATE 4 MG INJ IV PRN (09:01)
[2021-07-29 09:41] LABS: ALBUMIN 3.8 g/dL (3.5-5.0); ALKALINE PHOSPHATASE 91 U/L (38-126); BLOOD UREA NITROGEN 25 mg/dL (7-17); CHLORIDE 91 mmol/L (98-107); Calcium 8.4 mg/dL (8.4-10.2); Creatinine 1 0.74 mg/dL (0.52-1.04); EST GLOMERULAR FILTRATION RATE > 60.0 ML/MIN; Glucose 283 mg/dL (74-106); Potassium 5.2 mmol/L (3.5-5.1); SGOT/AST 196 U/L (14-36); SGPT/ALT 148 U/L (0-35); SODIUM 139 mmol/L (137-145)
[2021-07-29] MEDS: Neurontin 100 MG PO SCH ×3 (09:43→22:11)
[2021-07-29] MEDS: ELIQUIS 2.5 MG TABLET PO SCH ×2 (09:43→22:10)
[2021-07-29] MEDS: Nicoderm CQ 21 MG TOP SCH (09:44)
[2021-07-29 09:47] LABS: Carbon Dioxide 39 mmol/L (22-30)
[2021-07-29] MEDS: solu-MEDROL 40 MG, Sterile H2O 10 ml 2 ML IV SCH ×4 (09:57→22:11)
[2021-07-29] MEDS: BUMEX 1 MG IV SCH ×2 (10:01→22:10)
[2021-07-29] MEDS: ATARAX 25 MG PO SCH ×2 (10:14→22:09)
[2021-07-29 11:17] LABS: Slide Review YES
[2021-07-29] MEDS: Zithromax 500 MG/ 250 ML NaCl Premix 500 MG/250 ML IVPB IV SCH (11:28)
--- NOTE | 2021-07-29 12:04 | CONS ---
CONSULT DATE: 07/27/2021 HISTORY: Sheeba Tyler is a 60 year-old morbidly obese woman, followed by Dr. Mccallum, who has been hospitalized at [facility] this morning with complaints of shortness of breath. The patient reportedly has been getting progressively more short of breath for the past one week. Her chest x-ray performed through the emergency room has shown bibasilar infiltrates suggestive of pneumonia. She was started on IV antibiotics and has now been admitted to Med/Surg floor. The patient is noted to have moderate to severe dyspnea. She barely can ambulate a few feet at home to the bathroom and back. She has been using bronchodilators. Her blood gases also show chronic hypercapnic respiratory failure. The patient has supplemental oxygen at home but does not have noninvasive ventilation. She also has been diagnosed to have pulmonary hypertension but is unsure as to what medications she may be on for the same. VACCINE HISTORY: The patient reportedly has not received COVID-19 vaccine. PAST MEDICAL HISTORY: Positive for history of obstructive airway disease. History of gout, morbid obesity, anxiety and symptoms of cor pulmonale. She also reports increase in abdominal girth over the past few weeks. PAST SURGICAL HISTORY: Negative. PERSONAL AND SOCIAL HISTORY: She is a former smoker. She lives in [place]. MEDICATIONS: Medications reviewed. At home she is on Ventolin inhaler, Zyloprim, Eliquis, Citalopram, Singulair, hydroxyzine. ALLERGIES: PENICILLIN. PHYSICAL EXAMINATION: This is a morbidly obese woman who appears mildly short of breath. The patient is able to carry out conversation although somewhat difficult due to BiPAP mask in place. Her vital signs are noted. HEENT: Normocephalic. Oral exam showed a very small oropharynx. NECK: Short. CVS: First and second heart sounds were diminished. RESPIRATORY: Breath sounds are diminished; crackles are heard at lung bases. ABDOMEN: Morbidly obese. EXTREMITIES: Lower extremities showed 2+ leg edema. LABORATORY DATA AND TESTS: Labs and x-rays were reviewed. Chest x-ray noted. ASSESSMENT: This is a 60-year-old woman admitted with: 1) Acute on chronic hypercapnic respiratory failure. 2) Chronic hypoxemia. 3) Bilateral lower lobe infiltrates suggestive of community acquired pneumonia. 4) Underlying chronic obstructive pulmonary disease with exacerbation. 5) History of pulmonary hypertension, details unavailable. 6) History of "lung nodule" followed by Dr. Enoch Mccallum in outpatient setting. 7) Morbid obesity. 8) Cor pulmonale. RECOMMENDATIONS: 1) The patient has been admitted to Med/Surg. 2) The patient would probably do better sitting in a recliner than in bed to improve functional residual capacity. 3) Cautious diuresis. 4) I agree with IV antibiotic. 5) Cautious steroid use. 6) Noninvasive ventilation as needed/tolerated. 7) Continue Eliquis which will offer deep vein thrombosis prophylaxis, continue home medication. 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 9) Follow up of lung nodule per Dr. Mccallum. 10) Further recommendations awaiting clinical improvement. The patient's overall prognosis appears guarded at best and morbid obesity of 500 pounds will certainly end up being determining factor in terms prognostication. I will continue to follow her during her stay at this facility.
--- NOTE | 2021-07-29 13:13 | PCM.NOTE ---
Date and Time: 07/29/21 1309 Subjective Assessment: doing better. still short of breath - Review of Systems Constitutional: No Fever, No Chills Eyes: No Symptoms Ears, Nose, & Throat: No Symptoms Respiratory: Orthopnea, Short Of Breath, No Cough Cardiac: No Chest Pain, No Edema, No Syncope Abdominal/Gastrointestinal: No Abdominal Pain, No Nausea, No Vomiting, No Diarrhea Genitourinary Symptoms: No Dysuria Musculoskeletal: No Back Pain, No Neck Pain Skin: No Rash Neurological: No Dizziness, No Focal Weakness, No Sensory Changes Psychological: No Symptoms Endocrine: No Symptoms Hematologic/Lymphatic: No Symptoms Immunological/Allergic: No Symptoms Objective Exam General Appearance: mild distress, alert Neurologic Exam: alert, oriented x 3, cooperative, No motor deficits Skin Exam: normal color, warm, dry Eye Exam: PERRL, EOMI, eyes nml inspection Ears, Nose, Throat Exam: normal ENT inspection, pharynx normal, moist mucous membranes Neck Exam: normal inspection, non-tender, supple, full range of motion Respiratory Exam: diminished breath sounds, crackles/rales, rhonchi, wheezing, No respiratory distress Cardiovascular Exam: regular rate/rhythm, normal heart sounds Gastrointestinal/Abdomen Exam: soft, No tenderness, No mass Extremity Exam: normal inspection, normal range of motion Back Exam: normal inspection, normal range of motion, No CVA tenderness, No vertebral tenderness Pelvic Exam: deferred Rectal Exam: deferred OBJECTIVE DATA Vital Signs: Vital Signs - 24 hr Temp Pulse Resp BP Pulse Ox 07/29/21 11:51 97.1 F 82 22 181/85 94 L 07/29/21 11:25 85 20 90 L 07/29/21 07:56 97.1 F 62 22 145/86 95 07/29/21 06:44 65 16 92 L 07/29/21 04:00 97.4 F 66 16 162/77 93 L 07/29/21 03:50 90 L 07/29/21 01:49 69 22 88 L 07/29/21 00:00 98.1 F 68 20 158/79 91 L 07/28/21 19:43 97.8 F 80 20 168/71 92 L 07/28/21 19:09 71 20 92 L 07/28/21 16:00 97.9 F 68 16 137/68 87 L 07/28/21 14:47 70 22 92 L Pain Assessment - Last Documented Pain Intensity 8 Pain Scale Used 0-10 Pain Scale Intake and Output: Intake & Output 07/27/21 07/28/21 07/29/21 07/30/21 11:59 11:59 11:59 11:59 Intake Total 1870 2060 Output Total 3500 4500 Balance -1630 -2440 Weight 222.6 kg 222.6 kg 219.2 kg Lab Results: Lab Results-Last 24 Hours 07/29/21 07/29/21 Range/Units 06:40 06:40 WBC 7.1 (4.0-10.5) K/mm3 RBC 4.64 (4.1-5.4) M/mm3 Hgb 12.7 (12.0-16.0) gm/dl Hct 45.5 (35-47) % MCV 98.1 (78-100) fl MCH 27.4 (26-32) pg MCHC 27.9 L (32-36) g/dl RDW 16.2 H (11.5-14.0) % Plt Count 143 L (150-450) K/mm3 MPV 11.2 H (7.5-11.0) fl Sodium 139 (137-145) mmol/L Potassium 5.2 H (3.5-5.1) mmol/L Chloride 91 L (98-107) mmol/L Carbon Dioxide 39 H (22-30) mmol/L Anion Gap Pending BUN 25 H (7-17) mg/dL Creatinine 0.74 (0.52-1.04) mg/dL Estimated GFR > 60.0 ML/MIN Glucose 283 H (74-106) mg/dL Calcium 8.4 (8.4-10.2) mg/dL Total Bilirubin 1.20 (0.2-1.3) mg/dL AST 196 H (14-36) U/L ALT 148 H (0-35) U/L Alkaline Phosphatase 91 (38-126) U/L Serum Total Protein 7.0 (6.3-8.2) g/dL Albumin 3.8 (3.5-5.0) g/dL Slides for Path Review YES Radiology Exams: Radiology Procedures Category Date Time Status CHEST 1 VIEW (PORTABLE) Urgent Exams 07/28/21 05:00 Completed ECHO W/2D AND DOPPLER [US] Routine Exams 07/29/21 12:11 Taken PULMONARY PERF VENTILATION [NUCMED] Routine Exams 07/29/21 09:02 Ordered Assessment/Plan (1) Hypoventilation associated with obesity Current Visit: Yes Status: Acute Qualifiers: Obesity classification: adult class 3 (BMI >= 40) Serious obesity comorbidity presence: with serious comorbidity Body mass index: BMI 70 or greater Qualified Code(s): E66.2 - Morbid (severe) obesity with alveolar hypoventilation; Z68.45 - Body mass index [BMI] 70 or greater, adult Code(s): E66.2 - MORBID (SEVERE) OBESITY WITH ALVEOLAR HYPOVENTILATION (2) Hypoxia Current Visit: Yes Status: Acute Code(s): R09.02 - HYPOXEMIA (3) SOB (shortness of breath) Current Visit: Yes Status: Acute Code(s): R06.02 - SHORTNESS OF BREATH (4) D-dimer, elevated Current Visit: Yes Status: Acute Code(s): R79.89 - OTHER SPECIFIED ABNORMAL FINDINGS OF BLOOD CHEMISTRY (5) CHF (congestive heart failure), NYHA class IV Current Visit: Yes Status: Acute Qualifiers: Congestive heart failure type: combined Congestive heart failure chronicity: chronic Qualified Code(s): I50.42 - Chronic combined systolic (congestive) and diastolic (congestive) heart failure Assessment & Plan: Last Vital Signs Temp 97.1 F 07/29/21 11:51 Pulse 82 07/29/21 11:51 Resp 22 07/29/21 11:51 BP 181/85 07/29/21 11:51 Pulse Ox 94 L 07/29/21 11:51 Allergies Penicillins Allergy (Verified 07/27/21 12:53) Hives Active Medications Albuterol Sulfate (Ventolin Common Canister) 2 puff IH QIDPRN PRN PRN Reason: wheezes Stop: 08/26/21 13:56 Last Admin: 07/29/21 01:48 Dose: 2 puff Documented by: Albuterol/Ipratropium (Duoneb 0.5-3 Mg/3 Ml Neb) 3 ml IH QIDRT ERNESTO Stop: 08/27/21 14:59 Last Admin: 07/29/21 11:25 Dose: 3 ml Documented by: Allopurinol (Zyloprim 300 Mg) 300 mg PO HS ERNESTO Stop: 08/26/21 13:59 Last Admin: 07/28/21 21:24 Dose: 300 mg Documented by: Apixaban (Eliquis 2.5 Mg Tablet) 5 mg PO BID ERNESTO Stop: 08/26/21 12:59 Last Admin: 07/29/21 09:43 Dose: 5 mg Documented by: Bumetanide (Bumex 1 Mg) 2 mg IV BID ERNESTO Stop: 08/28/21 09:59 Last Admin: 07/29/21 10:01 Dose: 2 mg Documented by: Methylprednisolone Sodium Succinate 40 mg/ Sterile Water 2 ml 0 mg IV Q12HT ERNESTO Stop: 07/29/21 22:01 Last Admin: 07/29/21 09:57 Dose: 40 mg Documented by: Escitalopram Oxalate (Lexapro 10 Mg) 20 mg PO HS [facility] Stop: 08/27/21 21:59 Last Admin: 07/28/21 21:24 Dose: 20 mg Documented by: Gabapentin (Neurontin 100 Mg) 100 mg PO TID ERNESTO Stop: 08/27/21 21:59 Last Admin: 07/29/21 09:43 Dose: 100 mg Documented by: Hydroxyzine HCl (Atarax 25 Mg) 50 mg PO BID ERNESTO Stop: 08/26/21 13:59 Last Admin: 07/29/21 10:14 Dose: Not Given Documented by: Ceftriaxone Sodium/Dextrose (Rocephin 1 Gm-D5w 50 Ml Bag) 1 g in 50 mls @ 100 mls/hr IV DAILY ERNESTO Stop: 07/31/21 11:29 Last Admin: 07/28/21 10:46 Dose: 100 mls/hr Documented by: Azithromycin (Zithromax 500 Mg/ 250 Ml Nacl Premix) 500 mg in 250 mls @ 250 mls/hr IV DAILY ERNESTO Stop: 08/26/21 11:29 Last Admin: 07/29/21 11:28 Dose: 250 mls/hr Documented by: Insulin Human Regular (Humulin R) 0 unit SQ UD PRN PRN Reason: HYPERGLYCEMIA Stop: 08/28/21 12:30 Montelukast Sodium (Singulair 10 Mg) 10 mg PO HS ERNESTO Stop: 08/26/21 21:59 Last Admin: 07/28/21 21:24 Dose: 10 mg Documented by: Morphine Sulfate (Morphine Sulfate 4 Mg Inj) 4 mg IV Q4H PRN PRN PRN Reason: PAIN Stop: 08/03/21 09:00 Last Admin: 07/29/21 10:43 Dose: 4 mg Documented by: Nicotine (Nicoderm Cq 21 Mg) 21 mg TOP Q24H10 [facility] Stop: 08/27/21 16:29 Last Admin: 07/29/21 09:44 Dose: 21 mg Documented by: Prednisone (Deltasone 20 Mg) 20 mg PO DAILY [facility] Stop: 08/29/21 09:59 Intake & Output 07/29/21 07/30/21 11:59 11:59 Intake Total 2060 Output Total 4500 Balance -2440 Weight 219.2 kg Orders 07/28/21 15:00 Albuterol/Ipratropium 3ml Neb* [DUONEB 0.5-3 MG/3 ml Neb] 3 ml IH QIDRT 07/28/21 22:00 Escitalopram Oxalate 10 mg [Lexapro 10 MG] 20 mg PO HS Gabapentin 100 mg [Neurontin 100 MG] 100 mg PO TID 07/29/21 HEMOGLOBIN A1C Routine 07/29/21 06:40 CMP Routine 07/29/21 09:01 Morphine Sulfate 4 mg Inj 4 mg IV Q4H PRN PRN 07/29/21 09:02 PULMONARY PERF VENTILATION [NUCMED] Routine 07/29/21 10:00 Bumetanide 1 mg [Bumex 1 mg] 2 mg IV BID Nicotine 21 mg [Nicoderm CQ 21 MG] 21 mg TOP Q24H10 07/29/21 12:31 POCT Glucose Check ACHS Insulin Regular, Human [Humulin R] See Dose Instructions SQ UD PRN 07/30/21 04:00 BMP AM.LAB CBC W DIFF AM.LAB 07/30/21 10:00 Prednisone 20 mg [Deltasone 20 mg] 20 mg PO DAILY Lab Tests 07/29/21 07/29/21 06:40 06:40 WBC 7.1 RBC 4.64 Hgb 12.7 Hct 45.5 MCV 98.1 MCH 27.4 MCHC 27.9 L RDW 16.2 H Plt Count 143 L MPV 11.2 H Sodium 139 Potassium 5.2 H Chloride 91 L Carbon Dioxide 39 H Anion Gap Pending BUN 25 H Creatinine 0.74 Estimated GFR > 60.0 Glucose 283 H Calcium 8.4 Total Bilirubin 1.20 AST 196 H ALT 148 H Alkaline Phosphatase 91 Serum Total Protein 7.0 Albumin 3.8 Slides for Path Review YES Microbiology 07/27/21 06:46 Blood Blood Culture - Preliminary NO GROWTH TO DATE 07/27/21 06:15 Blood Blood Culture - Preliminary NO GROWTH TO DATE Code(s): I50.9 - HEART FAILURE, UNSPECIFIED
[2021-07-29] MEDS: ROCEPHIN 1 Gm-D5w 50 ml Bag** 1 G/50 ML IVPB IV SCH (13:52)
--- NOTE | 2021-07-29 14:30 | PROG NOTE ---
Events noted. Chart reviewed. CONSULT DATE: 07/28/2021 HISTORY: The patient is awake sitting in chair. Reports significant improvement in shortness of breath PHYSICAL EXAMINATION: Vital signs noted. HEENT: Normocephalic. Oral exam shows small oropharynx. NECK: Accessory muscles are mildly prominent. CVS: First and second heart sounds are normal, regular, rhythmic. RESPIRATORY: Shows diminished breath sounds, rhonchi improved. ABDOMEN: Obese. EXTREMITIES: Chronic edema is noted. LABORATORY DATA AND TESTS: White count 3.9, hemoglobin 12.6, hematocrit 45, PLT count 137,000. Sodium 140, potassium 4.5, chloride 94, bicarb 40, glucose 213, BUN 15, creatinine 0.3. ASSESSMENT: This is a 60-year-old woman admitted with: 1) Acute on chronic hypercapnic respiratory failure. 2) Chronic hypoxemia. 3) Cor pulmonale. 4) Chronic obstructive pulmonary disease with exacerbation. 5) Morbid obesity with obesity hypoventilation. RECOMMENDATIONS: 1) The patient is doing well from pulmonary standpoint. 2) Will discontinue steroids IV and switch to p.o. tomorrow. 3) Consider echocardiogram. 4) Continue aggressive supportive care, to be followed by Dr. Mccallum, her regular accounts manager, upon discharge.
[2021-07-29 15:50] LABS: ANION GAP 14.2 MEQ/L (5-15)
[2021-07-29] MEDS: HUMULIN R SQ PRN ×2 (16:27→22:12)
[2021-07-29] MEDS ORDERED: Xylocaine-Mpf 2% 5 Ml Vial ONE (17:25)
[2021-07-29] MEDS ORDERED: Colace 100 MG PO SCH (22:00)
[2021-07-29] MEDS: ZYLOPRIM 300 MG PO SCH (22:11)
[2021-07-29] MEDS: Lexapro 10 MG PO SCH (22:11)
[2021-07-29] MEDS: Singulair 10 MG PO SCH (22:11)
[2021-07-30 05:43] LABS: Absolute Neutrophil Ct (ANC) 6.38 (1.4-6.9); Basophil (Absolute #) 0 (0-0.4); Eosinophil (Absolute #) 0 (0-0.5); Hematocrit 45.8 % (35-47); Hemoglobin 12.9 gm/dl (12.0-16.0); Lymphocyte (Absolute #) 0.41 (1.0-4.6); Lymphocytes % 5.9 % (24.0-44.0); Mean Cell Volume 97.7 fl (78-100); Mean Corpuscular Hemoglobin 27.5 pg (26-32); Mean Corpuscular Hgb Concent. 28.2 g/dl (32-36); Mean Platelet Volume 10.9 fl (7.5-11.0); Monocyte (Absolute #) 0.13 (0.0-1.3); Monocytes % 1.9 % (0.0-12.0); Neutrophil % 92.2 % (36.0-66.0); Platelet Count 136 K/mm3 (150-450); Red Blood Count 4.69 M/mm3 (4.1-5.4); Red Cell Distribution Width 15.9 % (11.5-14.0); White Blood Count 6.9 K/mm3 (4.0-10.5)
[2021-07-30 06:13] LABS: BLOOD UREA NITROGEN 28 mg/dL (7-17); CHLORIDE 86 mmol/L (98-107); Calcium 8.5 mg/dL (8.4-10.2); Creatinine 1 0.63 mg/dL (0.52-1.04); EST GLOMERULAR FILTRATION RATE > 60.0 ML/MIN; Glucose 298 mg/dL (74-106); Potassium 4.8 mmol/L (3.5-5.1); SODIUM 139 mmol/L (137-145)
[2021-07-30 06:44] LABS: Carbon Dioxide 43 mmol/L (22-30)
[2021-07-30 06:45] LABS: ANION GAP 14.8 MEQ/L (5-15)
[2021-07-30] MEDS: DUONEB 0.5-3 MG/3 ml Neb IH SCH ×3 (07:00→16:17)
[2021-07-30 07:41] LABS: Slide Review 1 YES
[2021-07-30] MEDS: HUMULIN R SQ PRN ×2 (08:32→12:13)
[2021-07-30] MEDS: BUMEX 1 MG IV SCH (09:04)
[2021-07-30] MEDS: ATARAX 25 MG PO SCH (09:10)
[2021-07-30] MEDS: Neurontin 100 MG PO SCH ×2 (09:11→15:12)
[2021-07-30] MEDS: ELIQUIS 2.5 MG TABLET PO SCH (09:11)
[2021-07-30] MEDS: ROCEPHIN 1 Gm-D5w 50 ml Bag** 1 G/50 ML IVPB IV SCH (09:20)
[2021-07-30] MEDS: Zithromax 500 MG/ 250 ML NaCl Premix 500 MG/250 ML IVPB IV SCH (09:24)
[2021-07-30] MEDS ORDERED: DELTASONE 20 MG PO SCH (10:00)
[2021-07-30] MEDS: Nicoderm CQ 21 MG TOP SCH (10:00)
--- NOTE | 2021-07-30 10:33 | XRAY ---
Indication: Short of breath. Comparison: July 28, 2021. Portable chest grossly unchanged again with diffuse hazy bilateral interstitial alveolar opacities, small right base effusion/atelectasis, cardiomegaly, and mediastinal/hilar calcified nodes. No new cardiopulmonary abnormalities.
--- NOTE | 2021-07-30 11:47 | ECHO ---
Transthoracic echocardiographic examination and color Doppler was done on 07/29/2021. INDICATION: Pulmonary hypertension. The study is very limited because of limited acoustic window. The left ventricle is poorly visualized in the long parasternal view. The ejection fraction is probably around 40%. The ascending aorta appears to be dilated but this could not be certain because of the limited views. IMPRESSION: THIS IS A VERY LIMITED STUDY WHICH PRECLUDES ADEQUATE ASSESSMENT OF THE INTRACARDIAC ANATOMY AND PHYSIOLOGY. THE RIGHT VENTRICULAR SYSTOLIC PRESSURE CANNOT BE MEASURED BECAUSE THERE IS NO GOOD TRICUSPID REGURGITATION ENVELOPE.
[2021-07-30] MEDS: VENTOLIN COMMON CANISTER IH PRN (12:25)
[2021-07-30 13:48] VITALS: BP 156/74
[2021-07-30 16:21] VITALS: PULSE 65; O2SAT 93
--- NOTE | 2021-07-30 17:12 | PCM.DS ---
Discharge Summary Date of Admission: 07/27/21 12:36 Admitting Physician: ZULMA MEDINA Consults: Consults on Case 07/28/21 08:18 Consult Pulmonology ROUTINE 07/30/21 08:19 Diet Consult [Nutritional Consult] ROUTINE Primary Care Provider: KENYA REYES Allergies Allergies Penicillins Allergy (Verified 07/27/21 12:53) [facility] Summary - Hospital Course Hospital Course: Chief Complaint Diagnosis HYPOVENTILATION ASSOCIATED WITH OBESITY, H YPOXIA Allergies Allergy/AdvReac Type Severity Reaction Status Date / Time Penicillins Allergy Hiv Verified 07/27/21 12:53 Vital Signs (Last 24 hours) Temp Pulse Resp BP Pulse Ox 07/30/21 16:19 65 18 93 L 07/30/21 12:25 86 20 84 L 07/30/21 12:00 98.2 F 84 16 156/74 90 L 07/30/21 10:59 81 20 91 L 07/30/21 07:42 96.9 F 61 15 158/80 94 L 07/30/21 07:02 62 16 93 L 07/30/21 04:00 97.5 F 67 20 168/84 91 L 07/30/21 00:00 97.7 F 73 14 161/74 92 L 07/29/21 23:18 74 18 93 L 07/29/21 20:00 98.4 F 75 18 145/74 86 L 07/29/21 19:32 79 20 91 L Home Medications Medication Instructions Recorded Confirmed Last Taken Type Albuterol Sulfate [Ventolin Hfa] 2 puffs IH QID PRN 07/27/21 07/27/21 Unknown History Allopurinol 300 mg [Zyloprim 300 mg PO DAILY 07/27/21 07/27/21 Unknown History 300 mg] Apixaban [Eliquis] 5 mg PO DAILY 07/27/21 07/27/21 Unknown History Escitalopram Oxalate 20 mg PO DAILY 07/27/21 07/27/21 Unknown History Montelukast Sodium 10 mg 10 mg PO HS 07/27/21 07/27/21 Unknown History [Singulair 10 MG] hydrOXYzine HCL [Hydroxyzine HCl] 50 mg PO BID 07/27/21 07/27/21 Unknown History Metformin HCl Xr 500 mg 500 mg PO DAILY 30 Days #30 tab 07/30/21 Unknown Rx [Glucophage XR 500 MG] Current Medications Generic Name Dose Route Start Last Admin Trade Name Freq PRN Reason Stop Dose Admin Albuterol Sulfate 2 puff 07/27/21 13:57 07/30/21 12:25 Ventolin Common Canister IH 08/26/21 13:56 2 puff QIDPRN PRN Administration wheezes Albuterol/Ipratropium 3 ml 07/28/21 15:00 07/30/21 16:17 Duoneb 0.5-3 Mg/3 Ml Neb IH 08/27/21 14:59 3 ml QIDRT ERNESTO Administration Allopurinol 300 mg 07/27/21 22:00 07/29/21 22:11 Zyloprim 300 Mg PO 08/26/21 13:59 300 mg HS ERNESTO Administration Apixaban 5 mg 07/27/21 13:00 07/30/21 09:11 Eliquis 2.5 Mg Tablet PO 08/26/21 12:59 5 mg BID ERNESTO Administration Bumetanide 2 mg 07/29/21 10:00 07/30/21 09:04 Bumex 1 Mg IV 08/28/21 09:59 2 mg BID ERNESTO Administration Docusate Sodium 100 mg 07/29/21 22:00 07/29/21 22:10 Colace 100 Mg PO 08/28/21 21:59 100 mg HS ERNESTO Administration Escitalopram Oxalate 20 mg 07/28/21 22:00 07/29/21 22:11 Lexapro 10 Mg PO 08/27/21 21:59 20 mg HS ERNESTO Administration Gabapentin 100 mg 07/28/21 22:00 07/30/21 15:12 Neurontin 100 Mg PO 08/27/21 21:59 100 mg TID ERNESTO Administration Hydroxyzine HCl 50 mg 07/27/21 14:00 07/30/21 09:10 Atarax 25 Mg PO 08/26/21 13:59 50 mg BID ERNESTO Administration Ceftriaxone Sodium/Dextrose 1 g in 50 mls @ 100 mls/hr 07/27/21 11:30 07/30/21 09:20 Rocephin 1 Gm-D5w 50 Ml Bag IV 08/01/21 11:29 100 mls/hr DAILY ERNESTO Administration Azithromycin 500 mg in 250 mls @ 250 mls/hr 07/27/21 11:30 07/30/21 09:24 Zithromax 500 Mg/ 250 Ml Nacl Premix IV 08/26/21 11:29 250 mls/hr DAILY ERNESTO Administration Insulin Human Regular 0 unit 07/29/21 12:31 07/30/21 12:13 Humulin R SQ 08/28/21 12:30 10 unit UD PRN Administration HYPERGLYCEMIA Montelukast Sodium 10 mg 07/27/21 22:00 07/29/21 22:11 Singulair 10 Mg PO 08/26/21 21:59 10 mg HS ERNESTO Administration Morphine Sulfate 4 mg 07/29/21 09:01 07/29/21 10:43 Morphine Sulfate 4 Mg Inj IV 08/03/21 09:00 4 mg Q4H PRN PRN Administration PAIN Nicotine 21 mg 07/29/21 10:00 07/30/21 10:00 Nicoderm Cq 21 Mg TOP 08/27/21 16:29 Not Given Q24H10 ERNESTO Prednisone 20 mg 07/30/21 10:00 07/30/21 09:11 Deltasone 20 Mg PO 08/29/21 09:59 20 mg DAILY ERNESTO Administration Discontinued Medications Generic Name Dose Route Start Last Admin Trade Name Freq PRN Reason Stop Dose Admin Acetaminophen 650 mg 07/28/21 14:25 Tylenol 325 Mg PO 08/27/21 14:24 Q4H PRN PRN PAIN AND/OR FEVER Acetaminophen 1,000 mg 07/29/21 01:15 07/29/21 01:25 Tylenol Extra Strength 500 Mg PO 07/29/21 01:16 1,000 mg ONCE ONE Administration Albuterol/Ipratropium Confirm 07/27/21 05:24 Duoneb 0.5-3 Mg/3 Ml Neb Administered 07/27/21 05:25 Dose 3 ml IH .STK-MED ONE Albuterol/Ipratropium 3 ml 07/27/21 05:23 07/27/21 05:28 Duoneb 0.5-3 Mg/3 Ml Neb IH 07/27/21 05:24 3 ml STAT ONE Administration Albuterol/Ipratropium 3 ml 07/27/21 05:57 07/27/21 06:12 Duoneb 0.5-3 Mg/3 Ml Neb IH 07/27/21 05:58 3 ml STAT ONE Administration Albuterol/Ipratropium Confirm 07/27/21 06:09 Duoneb 0.5-3 Mg/3 Ml Neb Administered 07/27/21 06:10 Dose 3 ml IH .STK-MED ONE Albuterol/Ipratropium 3 ml 07/27/21 11:00 07/27/21 11:50 Duoneb 0.5-3 Mg/3 Ml Neb IH 08/26/21 10:59 Not Given Q4HRT ERNESTO Albuterol/Ipratropium 3 ml 07/27/21 11:00 07/28/21 11:14 Duoneb 0.5-3 Mg/3 Ml Neb IH 08/26/21 10:59 3 ml Q4HRT ERNESTO Administration Allopurinol 300 mg 07/27/21 14:00 07/27/21 15:44 Zyloprim 300 Mg PO 08/26/21 13:59 Not Given DAILY ERNESTO Bumetanide 1 mg 07/27/21 13:00 07/28/21 21:25 Bumex 1 Mg IV 08/26/21 12:59 1 mg BID ERNESTO Administration Methylprednisolone Sodium 0 mg 07/27/21 14:00 07/28/21 06:53 Succinate 40 mg/ Sterile Water IV 07/28/21 06:01 40 mg 2 ml Q8HT ERNESTO Administration Methylprednisolone Sodium 0 mg 07/27/21 22:00 07/29/21 22:11 Succinate 40 mg/ Sterile Water IV 07/29/21 22:01 40 mg 2 ml Q12HT ERNESTO Administration Enoxaparin Sodium 0 mg 07/27/21 22:00 Enoxaparin Sodium SQ 08/26/21 21:59 BID ERNESTO Enoxaparin Sodium 120 mg 07/27/21 08:08 07/27/21 08:30 Enoxaparin Sodium SQ 07/27/21 08:09 120 mg STAT STA Administration Enoxaparin Sodium Confirm 07/27/21 08:30 Enoxaparin Sodium Administered 07/27/21 08:31 Dose 120 mg SQ .STK-MED ONE Famotidine 20 mg 07/27/21 07:42 07/27/21 07:46 Pepcid 20 Mg Vial IV 07/27/21 07:43 20 mg STAT ONE Administration Famotidine Confirm 07/27/21 07:45 Pepcid 20 Mg Vial Administered 07/27/21 07:46 Dose 20 mg IV .STK-MED ONE Gabapentin 100 mg 07/28/21 17:50 07/28/21 18:06 Neurontin 100 Mg PO 07/28/21 17:51 100 mg ONCE ONE Administration Sodium Chloride 1,000 mls @ 50 mls/hr 07/27/21 08:00 07/27/21 15:45 Sodium Chloride 0.9% 1000 Ml IV 08/26/21 07:59 Not Given .Q20H ERNESTO Ibuprofen 400 mg 07/28/21 14:29 07/28/21 14:42 Motrin 400 Mg PO 08/27/21 14:28 400 mg Q4H PRN PRN Administration PAIN Lidocaine HCl Confirm 07/29/21 17:25 Xylocaine-Mpf 2% 5 Ml Vial Administered 07/29/21 17:26 Dose 5 ml .ROUTE .STK-MED ONE Nicotine 21 mg 07/28/21 16:30 07/28/21 16:39 Nicoderm Cq 21 Mg TOP 08/27/21 16:29 21 mg Q24H ERNESTO Administration Pantoprazole Sodium 40 mg 07/27/21 07:42 07/27/21 07:45 Protonix 40 Mg Iv IV 07/27/21 07:43 40 mg STAT ONE Administration Pantoprazole Sodium Confirm 07/27/21 07:45 Protonix 40 Mg Iv Administered 07/27/21 07:46 Dose 40 mg IV .STK-MED ONE Intake & Output (Last 24 hours) 07/28/21 07/29/21 07/30/21 07/31/21 11:59 11:59 11:59 11:59 Intake Total 1870 2060 3840 Output Total 3500 4500 4800 800 Balance -1630 -2440 -960 -800 Weight 222.6 kg 219.2 kg Laboratory Results (Last 24 hours) 07/30/21 07/30/21 07/30/21 11:49 06:45 05:20 WBC RBC Hgb Hct MCV MCH MCHC RDW Plt Count MPV Gran % Eos # (Auto) Absolute Lymphs (auto) Absolute Monos (auto) Lymphocytes % Monocytes % Eosinophils % Basophils % Absolute Granulocytes Basophils # Sodium 139 Potassium 4.8 Chloride 86 L Carbon Dioxide 43 H Anion Gap 14.8 BUN 28 H Creatinine 0.63 Estimated GFR > 60.0 Glucose 298 H POC Glucometer 405 H 288 H Calcium 8.5 Slides for Path Review 07/30/21 07/29/21 05:20 21:16 WBC 6.9 RBC 4.69 Hgb 12.9 Hct 45.8 MCV 97.7 MCH 27.5 MCHC 28.2 L RDW 15.9 H Plt Count 136 L MPV 10.9 Gran % 92.2 H Eos # (Auto) 0 Absolute Lymphs (auto) 0.41 L Absolute Monos (auto) 0.13 Lymphocytes % 5.9 L Monocytes % 1.9 Eosinophils % 0.0 Basophils % 0.0 Absolute Granulocytes 6.38 Basophils # 0 Sodium Potassium Chloride Carbon Dioxide Anion Gap BUN Creatinine Estimated GFR Glucose POC Glucometer 332 H Calcium Slides for Path Review YES Orders (Last 24 hours) Category Date Time Status Miscellaneous Nursing Order ROUTINE Care 07/30/21 11:41 Active Diet Consult [Nutritional Consult] ROUTINE Diet 07/30/21 08:19 Active Discharge Planning,Consult Routine Discharge 07/30/21 Active Discharge Routine Discharge 07/30/21 Ordered CHEST 1 VIEW (PORTABLE) Routine Exams 07/30/21 09:23 Completed BMP AM.LAB Lab 07/30/21 05:20 Completed CBC W DIFF AM.LAB Lab 07/30/21 05:20 Completed POCT GLUCOSE Stat Lab 07/29/21 21:16 Completed POCT GLUCOSE Stat Lab 07/30/21 06:45 Completed POCT GLUCOSE Stat Lab 07/30/21 11:49 Completed Docusate Sodium 100 mg [Colace 100 MG] Med 07/29/21 22:00 Active 100 mg PO HS Lidocaine HCl 2% Mpf 5 ml [Xylocaine-Mpf 2% 5 Ml Med 07/29/21 17:25 Disc ontinued Vial] 5 ml .ROUTE .STK-MED ONE Prednisone 20 mg [Deltasone 20 mg] Med 07/30/21 10:00 Active 20 mg PO DAILY Qualify for Home Oxygen TODAY RT 07/30/21 10:06 Active Patient Care Notes (Last 24 hours) 07/30/21 16:41 Nursing Note by Felicitas Salamanca FAXED DISCHARGE RECORDS TO KENYA REYES'S OFFICE. 07/30/21 1633 Initialized on 07/30/21 16:41 - END OF NOTE 07/30/21 11:38 Case Management Note by Dotty Chua MEETING FAMILY AT PATIENT'S APARTMENT TO SWITCH OUT [facility] Initialized on 07/30/21 11:38 - END OF NOTE 07/30/21 11:36 Case Management Note by Dotty Chua Addendum entered by Dotty Chua 07/30/21 11:52: THEY WERE ALSO NOTIFIED SHE WOULD BE DCING HOME TODAY Original Note: S/W [facility] JOURNEY TO SEE IF PATIENT COULD GET A NURSE- HAD TO LEAVE MESSAGE Initialized on 07/30/21 11:36 - END OF NOTE 07/30/21 11:22 Case Management Note by Dotty Chua NEW HOME OXYGEN ORDER WITH INCREASE OF LITER KIKI FAXED TO [facility] AT THIS TIME Initialized on 07/30/21 11:22 - END OF NOTE 07/30/21 10:58 Respiratory Note by Jannette Gaona RESTING ROOM AIR SAT 79%, PLACED ON 5L OXYGEN SAT 88%. INCREASED TO 6L SATS 91%. Initialized on 07/30/21 10:58 - END OF NOTE 07/30/21 10:44 Case Management Note by Dotty Chua PATIENT REPORTS SHE CANNOT AMBULATE LONG DISTANCES D/T OBESITY AND UNSTEADY ON HER FEET. SHE MAINLY ONLY TRANSFERS AT HOME D/T THIS. SHE IS REQUESTING WHEELCHAIR AT THIS TIME D/T DIFFICULTY. ORDER SENT TO [facility]IA [facility]. S/W [place]- NOTIFIED PATIENT WILL NEED THIS DELIVERED HERE PRIOR TO DC HOME SO HER FAMILY CAN GET HER INSIDE HER HOME. SHE VERIFIED UNDERSTANDING Initialized on 07/30/21 10:44 - END OF NOTE - Vitals & Intake/Output Vital Signs: Vital Signs Temperature 98.2 F 07/30/21 12:00 Pulse Rate 65 07/30/21 16:19 Respiratory Rate 18 07/30/21 16:19 Blood Pressure 156/74 07/30/21 12:00 O2 Sat by Pulse Oximetry 93 L 07/30/21 16:19 Intake & Output: Intake & Output 07/28/21 07/29/21 07/30/21 07/31/21 11:59 11:59 11:59 11:59 Intake Total 1870 2060 3840 Output Total 3500 4500 4800 800 Balance -1630 -2440 -960 -800 Weight 222.6 kg 219.2 kg - Lab Result Diagrams: 07/30/21 05:20 07/30/21 05:20 Lab Results-Last 24 Hrs: Lab Results-Last 24 Hours 07/29/21 07/30/21 07/30/21 Range/Units 21:16 05:20 05:20 WBC 6.9 (4.0-10.5) K/mm3 RBC 4.69 (4.1-5.4) M/mm3 Hgb 12.9 (12.0-16.0) gm/dl Hct 45.8 (35-47) % MCV 97.7 (78-100) fl MCH 27.5 (26-32) pg MCHC 28.2 L (32-36) g/dl RDW 15.9 H (11.5-14.0) % Plt Count 136 L (150-450) K/mm3 MPV 10.9 (7.5-11.0) fl Gran % 92.2 H (36.0-66.0) % Eos # (Auto) 0 (0-0.5) Absolute Lymphs (auto) 0.41 L (1.0-4.6) Absolute Monos (auto) 0.13 (0.0-1.3) Lymphocytes % 5.9 L (24.0-44.0) % Monocytes % 1.9 (0.0-12.0) % Eosinophils % 0.0 (0.00-5.0) % Basophils % 0.0 (0.0-0.4) % Absolute Granulocytes 6.38 (1.4-6.9) Basophils # 0 (0-0.4) Sodium 139 (137-145) mmol/L Potassium 4.8 (3.5-5.1) mmol/L Chloride 86 L (98-107) mmol/L Carbon Dioxide 43 H (22-30) mmol/L Anion Gap 14.8 (5-15) MEQ/L BUN 28 H (7-17) mg/dL Creatinine 0.63 (0.52-1.04) mg/dL Estimated GFR > 60.0 ML/MIN Glucose 298 H (74-106) mg/dL POC Glucometer 332 H (74 to 106) mg/dL Calcium 8.5 (8.4-10.2) mg/dL Slides for Path Review YES 07/30/21 07/30/21 Range/Units 06:45 11:49 WBC (4.0-10.5) K/mm3 RBC (4.1-5.4) M/mm3 Hgb (12.0-16.0) gm/dl Hct (35-47) % MCV (78-100) fl MCH (26-32) pg MCHC (32-36) g/dl RDW (11.5-14.0) % Plt Count (150-450) K/mm3 MPV (7.5-11.0) fl Gran % (36.0-66.0) % Eos # (Auto) (0-0.5) Absolute Lymphs (auto) (1.0-4.6) Absolute Monos (auto) (0.0-1.3) Lymphocytes % (24.0-44.0) % Monocytes % (0.0-12.0) % Eosinophils % (0.00-5.0) % Basophils % (0.0-0.4) % Absolute Granulocytes (1.4-6.9) Basophils # (0-0.4) Sodium (137-145) mmol/L Potassium (3.5-5.1) mmol/L Chloride (98-107) mmol/L Carbon Dioxide (22-30) mmol/L Anion Gap (5-15) MEQ/L BUN (7-17) mg/dL Creatinine (0.52-1.04) mg/dL Estimated GFR ML/MIN Glucose (74-106) mg/dL POC Glucometer 288 H 405 H (74 to 106) mg/dL Calcium (8.4-10.2) mg/dL Slides for Path Review Micro Results-Entire Visit: Microbiology 07/27/21 06:46 Blood Culture - Preliminary Blood NO GROWTH TO DATE 07/27/21 06:15 Blood Culture - Preliminary Blood NO GROWTH TO DATE Accuchecks Date 07/30/21 Date 07/30/21 Date 07/29/21 Time 21:00 - Radiology Exams Ordered Rad Exams-Entire Visit: Radiology Procedures Category Date Time Status CHEST 1 VIEW (PORTABLE) Routine Exams 07/30/21 09:23 Completed ECHO W/2D AND DOPPLER [US] Routine Exams 07/29/21 12:11 Draft - Procedures and Test Procedures and Tests throughout Hospitalization: Therapy Orders & Screens 07/27/21 05:42 Respiratory Therapy Assessment DAILY Comment: 07/27/21 08:00 Oxygen Venti-Mask 50% Comment: 07/27/21 09:18 BiPap/CPAP ROUTINE Comment: 07/28/21 06:50 Oxygen Oxymask LPM 8 lpm Comment: Diagnosis: shortness of breath for 2-3 days 07/30/21 10:06 Qualify for Home Oxygen TODAY Comment: Diagnosis: HYPOVENTILATION ASSOCIATED WITH OBESITY, HYPOXIA Discharge Exam General Appearance: no apparent distress, alert Neurologic Exam: alert, oriented x 3, cooperative, normal mood/affect, sensation nml, No motor deficits Eye Exam: PERRL, EOMI, eyes nml inspection Ears, Nose, Throat Exam: normal ENT inspection, pharynx normal, moist mucous membranes Neck Exam: normal inspection, non-tender, supple, full range of motion Respiratory Exam: diminished breath sounds, crackles/rales, rhonchi, wheezing, No respiratory distress Cardiovascular Exam: regular rate/rhythm, normal heart sounds Gastrointestinal/Abdomen Exam: soft, No tenderness, No mass Pelvic Exam: deferred Rectal Exam: deferred Back Exam: normal inspection, normal range of motion, No CVA tenderness, No vertebral tenderness Extremity Exam: normal inspection, normal range of motion Skin Exam: normal color, warm, dry Final Diagnosis/Problem List - Final Discharge Diagnosis/Problem (1) Hypoventilation associated with obesity Current Visit: Yes Status: Acute Priority: High Assessment & Plan: Chief Complaint Diagnosis HYPOVENTILATION ASSOCIATED WITH OBESITY, HYPOXIA Allergies Allergy/AdvReac Type Severity Reaction Status Date / Time Penicillins Allergy Hives Verified 07/27/21 12:53 Vital Signs (Last 24 hours) Temp Pulse Resp BP Pulse Ox 07/30/21 16:19 65 18 93 L 07/30/21 12:25 86 20 84 L 07/30/21 12:00 98.2 F 84 16 156/74 90 L 07/30/21 10:59 81 20 91 L 07/30/21 07:42 96.9 F 61 15 158/80 94 L 07/30/21 07:02 62 16 93 L 07/30/21 04:00 97.5 F 67 20 168/84 91 L 07/30/21 00:00 97.7 F 73 14 161/74 92 L 07/29/21 23:18 74 18 93 L 07/29/21 20:00 98.4 F 75 18 145/74 86 L 07/29/21 19:32 79 20 91 L Home Medications Medication Instructions Recorded Confirmed Last Taken Type Albuterol Sulfate [Ventolin Hfa] 2 puffs IH QID PRN 07/27/21 07/27/21 Unknown History Allopurinol 300 mg [Zyloprim 300 mg PO DAILY 07/27/21 07/27/21 Unknown History 300 mg] Apixaban [Eliquis] 5 mg PO DAILY 07/27/21 07/27/21 Unknown History Escitalopram Oxalate 20 mg PO DAILY 07/27/21 07/27/21 Unknown History Montelukast Sodium 10 mg 10 mg PO HS 07/27/21 07/27/21 Unknown History [Singulair 10 MG] hydrOXYzine HCL [Hydroxyzine HCl] 50 mg PO BID 07/27/21 07/27/21 Unknown History Metformin HCl Xr 500 mg 500 mg PO DAILY 30 Days #30 tab 07/30/21 Unknown Rx [Glucophage XR 500 MG] Current Medications Generic Name Dose Route Start Last Admin Trade Name Freq PRN Reason Stop Dose Admin Albuterol Sulfate 2 puff 07/27/21 13:57 07/30/21 12:25 Ventolin Common Canister IH 08/26/21 13:56 2 puff QIDPRN PRN Administration wheezes Albuterol/Ipratropium 3 ml 07/28/21 15:00 07/30/21 16:17 Duoneb 0.5-3 Mg/3 Ml Neb IH 08/27/21 14:59 3 ml QIDRT ERNESTO Administration Allopurinol 300 mg 07/27/21 22:00 07/29/21 22:11 Zyloprim 300 Mg PO 08/26/21 13:59 300 mg HS ERNESTO Administration Apixaban 5 mg 07/27/21 13:00 09/21/21 09:11 Eliquis 2.5 Mg Tablet PO 08/26/21 12:59 5 mg BID ERNESTO Administration Bumetanide 2 mg 07/29/21 10:00 07/30/21 09:04 Bumex 1 Mg IV 08/28/21 09:59 2 mg BID ERNESTO Administration Docusate Sodium 100 mg 07/29/21 22:00 07/29/21 22:10 Colace 100 Mg PO 08/28/21 21:59 100 mg HS ERNESTO Administration Escitalopram Oxalate 20 mg 07/28/21 22:00 07/29/21 22:11 Lexapro 10 Mg PO 08/27/21 21:59 20 mg HS ERNESTO Administration Gabapentin 100 mg 07/28/21 22:00 07/30/21 15:12 Neurontin 100 Mg PO 08/27/21 21:59 100 mg TID ERNESTO Administration Hydroxyzine HCl 50 mg 07/27/21 14:00 07/30/21 09:10 Atarax 25 Mg PO 08/26/21 13:59 50 mg BID ERNESTO Administration Ceftriaxone Sodium/Dextrose 1 g in 50 mls @ 100 mls/hr 07/27/21 11:30 07/30/21 09:20 Rocephin 1 Gm-D5w 50 Ml Bag IV 08/01/21 11:29 100 mls/hr DAILY ERNESTO Administration Azithromycin 500 mg in 250 mls @ 250 mls/hr 07/27/21 11:30 07/30/21 09:24 Zithromax 500 Mg/ 250 Ml Nacl Premix IV 08/26/21 11:29 250 mls/hr DAILY ERNESTO Administration Insulin Human Regular 0 unit 07/29/21 12:31 07/30/21 12:13 Humulin R SQ 08/28/21 12:30 10 unit UD PRN Administration HYPERGLYCEMIA Montelukast Sodium 10 mg 07/27/21 22:00 07/29/21 22:11 Singulair 10 Mg PO 08/26/21 21:59 10 mg HS ERNESTO Administration Morphine Sulfate 4 mg 07/29/21 09:01 07/29/21 10:43 Morphine Sulfate 4 Mg Inj IV 08/03/21 09:00 4 mg Q4H PRN PRN Administration PAIN Nicotine 21 mg 07/29/21 10:00 07/30/21 10:00 Nicoderm Cq 21 Mg [facility] 08/27/21 16:29 Not Given Q24H10 ERNESTO Prednisone 20 mg 07/30/21 10:00 07/30/21 09:11 Deltasone 20 Mg PO 08/29/21 09:59 20 mg DAILY ERNESTO Administration Discontinued Medications Generic Name Dose Route Start Last Admin Trade Name Freq PRN Reason Stop Dose Admin Acetaminophen 650 mg 07/28/21 14:25 Tylenol 325 Mg PO 08/27/21 14:24 Q4H PRN PRN PAIN AND/OR FEVER Acetaminophen 1,000 mg 07/29/21 01:15 07/29/21 01:25 Tylenol Extra Strength 500 Mg PO 07/29/21 01:16 1,000 mg ONCE ONE Administration Albuterol/Ipratropium Confirm 07/27/21 05:24 Duoneb 0.5-3 Mg/3 Ml Neb Administered 07/27/21 05:25 Dose 3 ml IH .STK-MED ONE Albuterol/Ipratropium 3 ml 07/27/21 05:23 07/27/21 05:28 Duoneb 0.5-3 Mg/3 Ml Neb IH 07/27/21 05:24 3 ml STAT ONE Administration Albuterol/Ipratropium 3 ml 07/27/21 05:57 07/27/21 06:12 Duoneb 0.5-3 Mg/3 Ml Neb 07/27/21 05:58 3 ml STAT ONE Administration Albuterol/Ipratropium Confirm 07/27/21 06:09 Duoneb 0.5-3 Mg/3 Ml Neb Administered 07/27/21 06:10 Dose 3 ml IH .STK-MED ONE Albuterol/Ipratropium 3 ml 07/27/21 11:00 07/27/21 11:50 Duoneb 0.5-3 Mg/3 Ml Neb 08/26/21 10:59 Not Given Q4HRT ERNESTO Albuterol/Ipratropium 3 ml 07/27/21 11:00 07/28/21 11:14 Duoneb 0.5-3 Mg/3 Ml Neb IH 08/26/21 10:59 3 ml Q4HRT ERNESTO Administration Allopurinol 300 mg 07/27/21 14:00 07/27/21 15:44 Zyloprim 300 Mg PO 08/26/21 13:59 Not Given DAILY ERNESTO Bumetanide 1 mg 07/27/21 13:00 07/28/21 21:25 Bumex 1 Mg IV 08/26/21 12:59 1 mg BID ERNESTO Administration Methylprednisolone Sodium 0 mg 07/27/21 14:00 07/28/21 06:53 Succinate 40 mg/ Sterile Water IV 07/28/21 06:01 40 mg 2 ml Q8HT ERNESTO Administration Methylprednisolone Sodium 0 mg 07/27/21 22:00 07/29/21 22:11 Succinate 40 mg/ Sterile Water IV 07/29/21 22:01 40 mg 2 ml Q12HT ERNESTO Administration Enoxaparin Sodium 0 mg 07/27/21 22:00 Enoxaparin Sodium SQ 08/26/21 21:59 BID ERNESTO Enoxaparin Sodium 120 mg 07/27/21 08:08 07/27/21 08:30 Enoxaparin Sodium SQ 07/27/21 08:09 120 mg STAT STA Administration Enoxaparin Sodium Confirm 07/27/21 08:30 Enoxaparin Sodium Administered 07/27/21 08:31 Dose 120 mg SQ .STK-MED ONE Famotidine 20 mg 07/27/21 07:42 07/27/21 07:46 Pepcid 20 Mg Vial IV 07/27/21 07:43 20 mg STAT ONE Administration Famotidine Confirm 07/27/21 07:45 Pepcid 20 Mg Vial Administered 07/27/21 07:46 Dose 20 mg IV .STK-MED ONE Gabapentin 100 mg 07/28/21 17:50 07/28/21 18:06 Neurontin 100 Mg PO 07/28/21 17:51 100 mg ONCE ONE Administration Sodium Chloride 1,000 mls @ 50 mls/hr 07/27/21 08:00 07/27/21 15:45 Sodium Chloride 0.9% 1000 Ml IV 08/26/21 07:59 Not Given .Q20H ERNESTO Ibuprofen 400 mg 07/28/21 14:29 07/28/21 14:42 Motrin 400 Mg PO 08/27/21 14:28 400 mg Q4H PRN PRN Administration PAIN Lidocaine HCl Confirm 07/29/21 17:25 Xylocaine-Mpf 2% 5 Ml Vial Administered 07/29/21 17:26 Dose 5 ml .ROUTE .STK-MED ONE Nicotine 21 mg 07/28/21 16:30 07/28/21 16:39 Nicoderm Cq 21 Mg TOP 08/27/21 16:29 21 mg Q24H ERNESTO Administration Pantoprazole Sodium 40 mg 07/27/21 07:42 07/27/21 07:45 Protonix 40 Mg Iv IV 07/27/21 07:43 40 mg STAT ONE Administration Pantoprazole Sodium Confirm 07/27/21 07:45 Protonix 40 Mg Iv Administered 07/27/21 07:46 Dose 40 mg IV .STK-MED ONE Intake & Output (Last 24 hours) 07/28/21 07/29/21 07/30/21 07/31/21 11:59 11:59 11:59 11:59 Intake Total 1870 2060 3840 Output Total 3500 4500 4800 800 Balance -1630 -2440 -960 -800 Weight 222.6 kg 219.2 kg Laboratory Results (Last 24 hours) 07/30/21 07/30/21 07/30/21 11:49 06:45 05:20 WBC RBC Hgb Hct MCV MCH MCHC RDW Plt Count MPV Gran % Eos # (Auto) Absolute Lymphs (auto) Absolute Monos (auto) Lymphocytes % Monocytes % Eosinophils % Basophils % Absolute Granulocytes Basophils # Sodium 139 Potassium 4.8 Chloride 86 L Carbon Dioxide 43 H Anion Gap 14.8 BUN 28 H Creatinine 0.63 Estimated GFR > 60.0 Glucose 298 H POC Glucometer 405 H 288 H Calcium 8.5 Slides for Path Review 07/30/21 07/29/21 05:20 21:16 WBC 6.9 RBC 4.69 Hgb 12.9 Hct 45.8 MCV 97.7 MCH 27.5 MCHC 28.2 L RDW 15.9 H Plt Count 136 L MPV 10.9 Gran % 92.2 H Eos # (Auto) 0 Absolute Lymphs (auto) 0.41 L Absolute Monos (auto) 0.13 Lymphocytes % 5.9 L Monocytes % 1.9 Eosinophils % 0.0 Basophils % 0.0 Absolute Granulocytes 6.38 Basophils # 0 Sodium Potassium Chloride Carbon Dioxide Anion Gap BUN Creatinine Estimated GFR Glucose POC Glucometer 332 H Calcium Slides for Path Review YES Orders (Last 24 hours) Category Date Time Status Miscellaneous Nursing Order ROUTINE Care 07/30/21 11:41 Active Diet Consult [Nutritional Consult] ROUTINE Diet 07/30/21 08:19 Active Discharge Planning,Consult Routine Discharge 07/30/21 Active Discharge Routine Discharge 07/30/21 Ordered CHEST 1 VIEW (PORTABLE) Routine Exams 07/30/21 09:23 Completed BMP AM.LAB Lab 07/30/21 05:20 Completed CBC W DIFF AM.LAB Lab 07/30/21 05:20 Completed POCT GLUCOSE Stat Lab 07/29/21 21:16 Completed POCT GLUCOSE Stat Lab 07/30/21 06:45 Completed POCT GLUCOSE Stat Lab 07/30/21 11:49 Completed Docusate Sodium 100 mg [Colace 100 MG] Med 07/29/21 22:00 Active 100 mg PO HS Lidocaine HCl 2% Mpf 5 ml [Xylocaine-Mpf 2% 5 Ml Med 07/29/21 17:25 Discontinued Vial] 5 ml .ROUTE .STK-MED ONE Prednisone 20 mg [Deltasone 20 mg] Med 07/30/21 10:00 Active 20 mg PO DAILY Qualify for Home Oxygen TODAY RT 07/30/21 10:06 Active Patient Care Notes (Last 24 hours) 07/30/21 16:41 Nursing Note by Felicitas Salamanca FAXED DISCHARGE RECORDS TO [facility]ICE. 07/30/21 1633 Initialized on 07/30/21 16:41 - END OF NOTE 07/30/21 11:38 Case Management Note by Dotty Chua MEETING FAMILY AT PATIENT'S APARTMENT TO SWITCH OUT [facility] Initialized on 07/30/21 11:38 - END OF NOTE 07/30/21 11:36 Case Management Note by Dotty Chua Addendum entered by Dotty Chua 07/30/21 11:52: THEY WERE ALSO NOTIFIED SHE WOULD BE DCING HOME TODAY Original Note: S/W [facility] JOURNEY TO SEE IF PATIENT COULD GET A NURSE- HAD TO LEAVE MESSAGE Initialized on 07/30/21 11:36 - END OF NOTE 07/30/21 11:22 Case Management Note by Dotty Chua NEW HOME OXYGEN ORDER WITH INCREASE OF LITER KIKI FAXED TO [facility] AT THIS TIME Initialized on 07/30/21 11:22 - END OF NOTE 07/30/21 10:58 Respiratory Note by Jannette Gaona RESTING ROOM AIR SAT 79%, PLACED ON 5L OXYGEN SAT 88%. INCREASED TO 6L SATS 91%. Initialized on 07/30/21 10:58 - END OF NOTE 07/30/21 10:44 Case Management Note by Dotty Chua PATIENT REPORTS SHE CANNOT AMBULATE LONG DISTANCES D/T OBESITY AND UNSTEADY ON HER FEET. SHE MAINLY ONLY TRANSFERS AT HOME D/T THIS. SHE IS REQUESTING WHEELCHAIR AT THIS TIME D/T DIFFICULTY. ORDER SENT TO [facility] VIA [email or web address]. S/W [place]- NOTIFIED PATIENT WILL NEED THIS DELIVERED HERE PRIOR TO DC HOME SO HER FAMILY CAN GET HER INSIDE HER HOME. SHE VERIFIED UNDERSTANDING Initialized on 07/30/21 10:44 - END OF NOTE Code(s): E66.2 - MORBID (SEVERE) OBESITY WITH ALVEOLAR HYPOVENTILATION (2) Hypoxia Current Visit: Yes Status: Acute Code(s): R09.02 - HYPOXEMIA (3) SOB (shortness of breath) Current Visit: Yes Status: Acute Code(s): R06.02 - SHORTNESS OF BREATH (4) D-dimer, elevated Current Visit: Yes Status: Acute Code(s): R79.89 - OTHER SPECIFIED ABNORMAL FINDINGS OF BLOOD CHEMISTRY (5) CHF (congestive heart failure), NYHA class IV Current Visit: Yes Status: Acute Code(s): I50.9 - HEART FAILURE, UNSPECIFIED (6) Type 2 diabetes mellitus Current Visit: Yes Status: Acute Priority: High Assessment & Plan: new onset. steroid induced. will start her on metformin ER 500 mg daily. diabetes education, accucheck achs at home. diabetic teaching. - Discharge Discharge Date: 07/30/21 Disposition: Home, Self-Care Condition: Fair Prescriptions: New Metformin HCl Xr 500 mg [Glucophage XR 500 MG] 500 mg PO DAILY 30 Days #30 tab No Action hydrOXYzine HCL [Hydroxyzine HCl] 50 mg PO BID Montelukast Sodium 10 mg [Singulair 10 MG] 10 mg PO HS Escitalopram Oxalate 20 mg PO DAILY Apixaban [Eliquis] 5 mg PO DAILY Allopurinol 300 mg [Zyloprim 300 mg] 300 mg PO DAILY Albuterol Sulfate [Ventolin Hfa] 2 puffs IH QID PRN PRN Reason: wheezes Instructions: Type 2 Diabetes, Chronic Obstructive Pulmonary Disease (COPD) (DC), How to Keep Track of Your Blood Sugar Additional Instructions: WEAR 6L AT HOME AT ALL TIMES CHECK BLOOD SUGAR ONCE PER DAY IN THE MORNING. TAKE METFORMIN XR 500MG ONCE DAILY. DR. SINGLETARY OFFICE SENDING ORDER FOR GLUCOMETER TO [facility] Follow up with: KENYA REYES NP [Primary Care Provider] - 08/01/21 10:00 am ([facility]) Forms: Discharge Instructions
== END 2021-07-30 17:02 | disposition home or self-care (01) | DRG 205 ==
LOC: ED 05:14 → MED SURG 08:00 → UNDOADMOB 08:00 → MED SURG 10:52 → UNDOADMOB 10:52 → INTOOBSV 12:36 → OBSVTOIN 12:36
PROVIDERS: ADMIT General Practice; ATTEND General Practice
DX: E66.2 Morbid (severe) obesity with alveolar hypoventilation (principal); J96.22 Acute and chronic respiratory failure with hypercapnia; R07.9 Chest pain, unspecified; I11.0 Hypertensive heart disease with heart failure; I50.9 Heart failure, unspecified; E11.9 Type 2 diabetes mellitus without complications; R11.2 Nausea with vomiting, unspecified; R19.7 Diarrhea, unspecified; I27.81 Cor pulmonale (chronic); J44.9 Chronic obstructive pulmonary disease, unspecified; R79.89 Other specified abnormal findings of blood chemistry; Z79.899 Other long term (current) drug therapy; Z99.81 Dependence on supplemental oxygen; Z20.822 Contact with and (suspected) exposure to COVID-19
CPT/HCPCS: 36000; 36415; 36600; 71045; 76942; 80048; 80053; 82375; 82803; 82947; 83036; 83605; 83690; 83735; 83880; 84484; 85025; 85027; 85379; 85610; 87040; 87400; 93005; 93041; 93268; 93306; 94002; 94003; 94640; 94760; 94762; 96372; 96374; 96375; 99285; 99291; U0003; J0456; J0696; J1650; J1815; J2270; J2930; A9270-GY

== ENCOUNTER 2021-09-18 03:34 | Emergency (ER) | payer MEDICARE ==
[2021-09-18] MEDS ORDERED: NORCO 5/325 MG PO ONE (04:05)
--- NOTE | 2021-09-18 04:06 | ERPHSYRPT ---
- History of Present Illness Time Seen by Provider: 09/18/21 03:50 Source: patient Exam Limitations: no limitations Patient Subjective Stated Complaint: pt states she fell forward when getting off the couch onto her knees. states pain is worse with movement and trying to bear weight. Triage Nursing Assessment: pt alert and oriented. answers questions approp. respirations nonlabored. o2 on at 6l per nc. pt reports tenderness to bilat knees with pight palpation. lower ext warm and dry. cap refill wnl. Physician History: This is a morbidly obese 60-year-old female who woke up in the middle the night and went to stand up and lost her footing and fell onto her bilateral knees. She ordinarily does not walk much anyway but she was having pain in her knees and was concerned that she might have broke something. She has no chest pain she has no shortness of breath. She has no abdominal pain. Occurred: just prior to arrival, this morning Reason for Fall: lost balance Injuries/Pain Location: lower extremity Loss of Consciousness: no loss of consciousness (Bilateral knees) Severity of Pain-Max: moderate Severity of Pain-Current: mild Modifying Factors: Improves With: movement (To moderate) Associated Symptoms (Fall): extremity injury (Painful, bilateral, anterior knees) Allergies/Adverse Reactions: Penicillins Allergy (Verified 07/27/21 12:53) Hives Home Medications: Albuterol Sulfate [Ventolin Hfa] 2 puffs IH QID PRN 07/27/21 [History] Allopurinol 300 mg [Zyloprim 300 mg] 300 mg PO DAILY 07/27/21 [History] Apixaban [Eliquis] 5 mg PO DAILY 07/27/21 [History] Escitalopram Oxalate 20 mg PO DAILY 07/27/21 [History] Montelukast Sodium 10 mg [Singulair 10 MG] 10 mg PO HS 07/27/21 [History] hydrOXYzine HCL [Hydroxyzine HCl] 50 mg PO BID 07/27/21 [History] Hx Tetanus, Diphtheria Vaccination/Date Given: No Hx Influenza Vaccination/Date Given: No Immunizations Up to Date: No Travel Risk - International Travel Have you traveled outside of the country in past 3 weeks: No - Coronavirus Screening Are you exhibiting any of the following symptoms?: No Close contact with a COVID-19 positive Pt in past 14-21 Days: No - Vaccine Status Have you recieved a Covid-19 vaccination: No - Review of Systems Constitutional: No Symptoms Eyes: No Symptoms Ears, Nose, & Throat: No Symptoms Respiratory: No Symptoms Cardiac: No Symptoms Abdominal/Gastrointestinal: No Symptoms Genitourinary Symptoms: No Symptoms Musculoskeletal: Fall, Injury (Bilateral anterior knees) Skin: No Symptoms Neurological: No Symptoms Psychological: No Symptoms Endocrine: No Symptoms Hematologic/Lymphatic: No Symptoms Immunological/Allergic: No Symptoms All Other Systems: Reviewed and Negative - Past Medical History Pertinent Past Medical History: Yes Neurological History: No Pertinent History ENT History: No Pertinent History Cardiac History: Congestive Heart Failure, Hypertension Respiratory History: Asthma, CHF, COPD, Pneumonia Endocrine Medical History: No Pertinent History Musculoskeletal History: No Pertinent History GI Medical History: Hemorrhoids History: No Pertinent History Psycho-Social History: Anxiety, Depression Female Reproductive Disorders: No Pertinent History Other Medical History: KIDNEY STONES, pulmonary hypertension - Past Surgical History Past Surgical History: Yes Neuro Surgical History: No Pertinent History Cardiac: No Pertinent History Respiratory: No Pertinent History Gastrointestinal: No Pertinent History Genitourinary: No Pertinent History Musculoskeletal: No Pertinent History Female Surgical History: Tubal Ligation Other Surgical History: cysto with stent placement - Social History Smoking Status: Former smoker How long have you smoked: 40yrs Exposure to second hand smoke: No Drug Use: none Patient Lives Alone: Yes - Nursing Vital Signs Nursing Vital Signs: Initial Vital Signs Temperature 97.8 F 09/18/21 03:37 Pulse Rate 86 09/18/21 03:37 Respiratory Rate 20 09/18/21 03:37 Blood Pressure 145/66 09/18/21 03:37 O2 Sat by Pulse Oximetry 91 L 09/18/21 03:37 Pain Scale Pain Intensity 5 - Kyleigh Coma Score Best Eye Response ([place]): (4) open spontaneously Best Verbal Response ([place]): (5) oriented Best Motor Response ([place]): (6) obeys commands Kyleigh Total: 15 - Physical Exam General Appearance: no apparent distress, alert, anxiety, obese Head Injury: no evidence of injury Eye Exam: PERRL/EOMI, eyes nml inspection ENT Exam: airway nml, nml ext.inspection Neck Exam: supple, trachea midline, full range of motion, normal alignment, normal inspection Respiratory/Chest Exam: No chest tenderness, No respiratory distress Gastrointestinal Exam: No tenderness Rectal Exam: not done Back Exam: normal inspection, normal range of motion, No CVA tenderness, No vertebral tenderness Extremity Exam: normal range of motion, pelvis stable, weight bearing (Bilateral anterior knees hurt when attempting to bear weight. 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, normal mood/affect, sensation nml Skin Exam: normal color, warm, dry SpO2 Interpretation: borderline oxygenation SpO2: 91 O2 Delivery: Room Air - Course Nursing assessment & vital signs reviewed: Yes Ordered Tests: Active Orders 24 hr Category Date Time Status KNEE (1 OR 2 VIEW) Stat Exams 09/18/21 04:07 Taken KNEE (1 OR 2 VIEW) Stat Exams 09/18/21 04:57 Taken Medication Summary Discontinued Medications Generic Name Dose Route Start Last Admin Trade Name Freq PRN Reason Stop Dose Admin Hydrocodone Bitart/Acetaminophen 1 tab 09/18/21 04:05 09/18/21 04:18 Hydrocodone/Apap 5/325 Mg Tablet PO 09/18/21 04:06 1 tab STAT ONE Administration Hydrocodone Bitart/Acetaminophen Confirm 09/18/21 04:17 Hydrocodone/Apap 5/325 Mg Tablet Administered 09/18/21 04:18 Dose 1 tab .ROUTE .STK-MED ONE - Departure Departure Disposition: Home Clinical Impression: Fall with no injury, Bilateral anterior knee pain Condition: Stable Critical Care Time: No Referrals: KENYA REYES SALESPERSON [facility]S [Primary Care Provider] - Follow up/PCP as directed Additional Instructions: Ice pack to both knees 3 times a day for the next 48 hours. Use Tylenol and ibuprofen for pain control. If your pain persists beyond the next 2 to 3 days, follow-up at [facility] orthopedic clinic or your primary care physician.
[2021-09-18] MEDS ORDERED: NORCO 5/325 MG ONE (04:17)
--- NOTE | 2021-09-18 09:10 | XRAY ---
Indication: Pain following fall. Comparison: None 2 view left knee using portable technique demonstrates osteopenia and mild medial joint space narrowing/spurring. No other bony, articular, or soft tissue abnormalities. Comment: Preliminary interpretation made by C. No critical discrepancy.
--- NOTE | 2021-09-18 09:11 | XRAY ---
Indication: Pain following fall. Comparison: None 2 view right knee using portable technique demonstrates osteopenia and medial joint space loss with minimal spurring. No other bony, articular, or soft tissue abnormalities. Comment: Preliminary interpretation made by C. No critical discrepancy.
== END 2021-09-18 07:22 | disposition home or self-care (01) ==
LOC: ED 03:34
DX: M25.562 Pain in left knee (principal); M25.561 Pain in right knee; W18.30XA Fall on same level, unspecified, initial encounter; Y92.003 Bedroom of unspecified non-institutional (private) residence as the place of occurrence of the external cause; E66.01 Morbid (severe) obesity due to excess calories; Z79.899 Other long term (current) drug therapy
CPT/HCPCS: 73560; 99284; A9270-GY

== ENCOUNTER 2021-09-19 17:57 | Inpatient (IN) | payer MEDICARE ==
--- NOTE | 2021-09-19 18:15 | ERPHSYRPT ---
- History of Present Illness Time Seen by Provider: 09/19/21 18:15 Source: patient, EMS Exam Limitations: clinical condition Physician History: This is a morbidly obese 60-year-old white female who is a patient of nurse practitioner Favian Reyes and presents via EMS secondary to altered mental status and shortness of breath. Patient has COPD. She is oxygen dependent with 6 L nasal cannula. She also has a history of CHF, hypertension and anxiety issues. Patient was just here in the emergency department 2 days ago, evaluated by me, after falling onto her bilateral anterior knees. She had no other complaints at that time. In the last 2 days, the family reported to the EMS services that the patient has not been moving around at all. She does not move much anyway even prior to her fall. Patient has been on the couch and has urinated on herself and has also had bowel movements on herself. Today, they had difficulty waking her up prior to arrival. She also complained of shortness of air. She did have an oxygenation level on 2 L nasal cannula of 88%. She currently denies chest pain. She is awake and communicative with us. Timing/Duration: today Severity of Dyspnea-Max: moderate Severity of Dyspnea-Current: moderate Possible Cause: occasional episodes Modifying Factors: Improves With: activity Associated Symptoms: weakness, No chest pain/discomfort Allergies/Adverse Reactions: Penicillins Allergy (Verified 09/19/21 18:43) Hives Home Medications: Albuterol Sulfate [Ventolin Hfa] 2 puffs IH QID PRN 07/27/21 [History] Allopurinol 300 mg [Zyloprim 300 mg] 300 mg PO DAILY 07/27/21 [History] Apixaban [Eliquis] 5 mg PO DAILY 07/27/21 [History] Escitalopram Oxalate 20 mg PO DAILY 07/27/21 [History] Montelukast Sodium 10 mg [Singulair 10 MG] 10 mg PO HS 07/27/21 [History] hydrOXYzine HCL [Hydroxyzine HCl] 50 mg PO BID 07/27/21 [History] Hx Tetanus, Diphtheria Vaccination/Date Given: No Hx Influenza Vaccination/Date Given: No Travel Risk - International Travel Have you traveled outside of the country in past 3 weeks: No - Coronavirus Screening Are you exhibiting any of the following symptoms?: No Close contact with a COVID-19 positive Pt in past 14-21 Days: No - Vaccine Status Have you recieved a Covid-19 vaccination: No - Review of Systems Constitutional: No Symptoms Eyes: No Symptoms Ears, Nose, & Throat: No Symptoms Respiratory: Dyspnea Cardiac: Orthopnea Abdominal/Gastrointestinal: No Symptoms Genitourinary Symptoms: No Symptoms Musculoskeletal: No Symptoms Skin: No Symptoms Neurological: No Symptoms Psychological: No Symptoms Endocrine: No Symptoms Hematologic/Lymphatic: No Symptoms Immunological/Allergic: No Symptoms All Other Systems: Reviewed and Negative - Past Medical History Pertinent Past Medical History: Yes Neurological History: No Pertinent History ENT History: No Pertinent History Cardiac History: Hypertension Respiratory History: Asthma, COPD Endocrine Medical History: No Pertinent History Musculoskeletal History: No Pertinent History GI Medical History: Hemorrhoids History: No Pertinent History Psycho-Social History: Anxiety, Depression Female Reproductive Disorders: No Pertinent History Other Medical History: KIDNEY STONES - Past Surgical History Past Surgical History: Yes Neuro Surgical History: No Pertinent History Cardiac: No Pertinent History Respiratory: No Pertinent History Gastrointestinal: No Pertinent History Genitourinary: No Pertinent History Musculoskeletal: No Pertinent History Female Surgical History: Tubal Ligation Other Surgical History: cysto with stent placement - Social History Smoking Status: Current every day smoker How long have you smoked: 40yrs Exposure to second hand smoke: No Drug Use: none Patient Lives Alone: No - Nursing Vital Signs Nursing Vital Signs: Initial Vital Signs Temperature 98.4 F 09/19/21 18:05 Pulse Rate 100 H 09/19/21 18:05 Respiratory Rate 23 09/19/21 18:05 Blood Pressure 159/82 09/19/21 18:05 O2 Sat by Pulse Oximetry 91 L 09/19/21 18:05 Pain Scale Pain Intensity 0 - Physical Exam General Appearance: mild distress, alert, anxiety, obese Eye Exam: PERRL/EOMI, eyes nml inspection Ears, Nose, Throat Exam: hearing grossly normal, normal ENT inspection, normal pharynx Neck Exam: normal inspection, non-tender, supple, full range of motion Respiratory Exam: normal breath sounds, lungs clear, airway intact, No chest tenderness, No respiratory distress Cardiovascular/Chest Exam: normal heart sounds, regular rate/rhythm Abdominal/Gastrointestinal Exam: soft, normal bowel sounds Rectal Exam: not done Extremity Exam: non-tender, normal range of motion, normal inspection Neurologic Exam: alert, oriented x 3, 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 No change when compared to EKG of 07/27/2021) Ordered Tests: Active Orders 24 hr Category Date Time Status EKG-ER Only STAT Care 09/19/21 18:15 Active IV Insertion STAT Care 09/19/21 18:15 Active Pulse Oximetry (ED) STAT Care 09/19/21 18:15 Active CHEST 1 VIEW (PORTABLE) Stat Exams 09/19/21 18:17 Taken ABG [ARTERIAL BLOOD GASES] Urgent Lab 09/19/21 19:06 Completed ARTERIAL BLOOD GASES Stat Lab 09/19/21 20:14 Completed BLOOD CULTURE Stat Lab 09/19/21 18:38 Received CBC W DIFF Stat Lab 09/19/21 18:46 Completed CMP Stat Lab 09/19/21 18:46 Completed D-DIMER QUANTITATIVE Stat Lab 09/19/21 18:46 Completed INFLUENZA A+B KARTHIK Stat Lab 09/19/21 18:46 Completed Lactic Acid Stat Lab 09/19/21 18:15 Completed MAGNESIUM Stat Lab 09/19/21 18:46 Completed NT PRO BNP Stat Lab 09/19/21 18:46 Completed TROPONIN Q3H Lab 09/19/21 18:46 Completed TROPONIN Q3H Lab 09/19/21 21:15 Ordered TROPONIN Q3H Lab 09/20/21 00:15 Ordered TROPONIN Q3H Lab 09/20/21 03:15 Ordered TROPONIN Q3H Lab 09/20/21 06:15 Ordered UA W/RFX UR CULTURE Stat Lab 09/19/21 20:49 Ordered BiPap/CPAP STAT RT 09/19/21 19:06 Active Transfer Order Routine Transfer 09/19/21 Ordered Medication Summary Discontinued Medications Generic Name Dose Route Start Last Admin Trade Name Freq PRN Reason Stop Dose Admin Apixaban 5 mg 09/19/21 20:36 Apixaban 2.5 Mg Tablet PO 09/19/21 20:37 STAT ONE Furosemide 40 mg 09/19/21 20:34 Furosemide 40 Mg/4 Ml Vial IV 09/19/21 20:35 STAT ONE Lab/Rad Data: Laboratory Result Diagrams 09/19/21 18:46 09/19/21 18:46 Laboratory Results 09/19/21 09/19/21 09/19/21 Range/Units 20:14 19:06 18:46 WBC (4.0-10.5) K/mm3 RBC (4.1-5.4) M/mm3 Hgb (12.0-16.0) gm/dl Hct (35-47) % MCV (78-100) fl MCH (26-32) pg MCHC (32-36) g/dl RDW (11.5-14.0) % Plt Count (150-450) K/mm3 MPV (7.5-11.0) fl Gran % (36.0-66.0) % Eos # (Auto) (0-0.5) Absolute Lymphs (auto) (1.0-4.6) Absolute Monos (auto) (0.0-1.3) Lymphocytes % (24.0-44.0) % Monocytes % (0.0-12.0) % Eosinophils % (0.00-5.0) % Basophils % (0.0-0.4) % Absolute Granulocytes (1.4-6.9) Basophils # (0-0.4) D-Dimer (215-500) ng/mL Puncture Site RIGHT RADIAL RIGHT RADIAL pCO2 93 H* 90 H* (35-45) mmHg pO2 77 48 L* (75-100) mmHg Base Excess 16.9 H 20.2 H (-2.0-2.0) O2 Saturation 93.3 L 77.8 L (94-100) g/dF ABG pH 7.32 L 7.36 (7.35-7.45) ABG HCO3 47.9 H* 50.8 H* (22-28) ABG O2 Sat (Measured) 96.5 80.1 L (95-100) % Nam Test YES yes A-a Gradient 520 153 a/A Ratio 0.13 0.24 Hemoglobin 11.2 11.8 Carboxyhemoglobin 2.3 2.3 (0.0-6.9) % THgb Methemoglobin 1.0 L 0.6 L (1.4-1.5) % Temperature 37.0 37.0 C POC O2 Flow Rate 50 44 % Inspiratory BiPAP 12 Expiratory BiPAP 6 Sodium (137-145) mmol/L Potassium 4.5 4.5 (3.5-5.1) mmol/L Chloride (98-107) mmol/L Carbon Dioxide (22-30) mmol/L Anion Gap (5-15) MEQ/L BUN (7-17) mg/dL Creatinine (0.52-1.04) mg/dL Estimated GFR ML/MIN Glucose (74-106) mg/dL Lactic Acid (0.4-2.0) Calcium (8.4-10.2) mg/dL Magnesium (1.6-2.3) mg/dL Total Bilirubin (0.2-1.3) mg/dL AST (14-36) U/L ALT (0-35) U/L Alkaline Phosphatase (38-126) U/L Troponin I (0.000-0.034) ng/mL NT-Pro-B Natriuret Pep (0-900) pg/mL Serum Total Protein (6.3-8.2) g/dL Albumin (3.5-5.0) g/dL Influenza Type A Ag NEGATIVE (NEGATIVE) Influenza Type B Ag NEGATIVE (NEGATIVE) 09/19/21 09/19/21 09/19/21 Range/Units 18:46 18:46 18:46 WBC 6.8 (4.0-10.5) K/mm3 RBC 3.99 L (4.1-5.4) M/mm3 Hgb 11.4 L (12.0-16.0) gm/dl Hct 41.7 (35-47) % MCV 104.5 H (78-100) fl MCH 28.6 (26-32) pg MCHC 27.3 L (32-36) g/dl RDW 15.9 H (11.5-14.0) % Plt Count 160 (150-450) K/mm3 MPV 10.2 (7.5-11.0) fl Gran % 78.8 H (36.0-66.0) % Eos # (Auto) 0.06 (0-0.5) Absolute Lymphs (auto) 0.84 L (1.0-4.6) Absolute Monos (auto) 0.54 (0.0-1.3) Lymphocytes % 12.3 L (24.0-44.0) % Monocytes % 7.9 (0.0-12.0) % Eosinophils % 0.9 (0.00-5.0) % Basophils % 0.1 (0.0-0.4) % Absolute Granulocytes 5.37 (1.4-6.9) Basophils # 0.01 (0-0.4) D-Dimer 4779 H* (215-500) ng/mL Puncture Site pCO2 (35-45) mmHg pO2 (75-100) mmHg Base Excess (-2.0-2.0) O2 Saturation (94-100) g/dF ABG pH (7.35-7.45) ABG HCO3 (22-28) ABG O2 Sat (Measured) (95-100) % Nam Test A-a Gradient a/A Ratio Hemoglobin Carboxyhemoglobin (0.0-6.9) % THgb Methemoglobin (1.4-1.5) % Temperature C POC O2 Flow Rate % Inspiratory BiPAP Expiratory BiPAP Sodium 144 (137-145) mmol/L Potassium 4.6 (3.5-5.1) mmol/L Chloride 96 L (98-107) mmol/L Carbon Dioxide 40 H (22-30) mmol/L Anion Gap 12.6 (5-15) MEQ/L BUN 19 H (7-17) mg/dL Creatinine 0.65 (0.52-1.04) mg/dL Estimated GFR > 60.0 ML/MIN Glucose 175 H (74-106) mg/dL Lactic Acid (0.4-2.0) Calcium 8.6 (8.4-10.2) mg/dL Magnesium 2.2 (1.6-2.3) mg/dL Total Bilirubin 0.90 (0.2-1.3) mg/dL AST 18 (14-36) U/L ALT 10 (0-35) U/L Alkaline Phosphatase 75 (38-126) U/L Troponin I (0.000-0.034) ng/mL NT-Pro-B Natriuret Pep 2870 H (0-900) pg/mL Serum Total Protein 7.0 (6.3-8.2) g/dL Albumin 3.7 (3.5-5.0) g/dL Influenza Type A Ag (NEGATIVE) Influenza Type B Ag (NEGATIVE) 09/19/21 09/19/21 Range/Units 18:46 18:15 WBC (4.0-10.5) K/mm3 RBC (4.1-5.4) M/mm3 Hgb (12.0-16.0) gm/dl Hct (35-47) % MCV (78-100) fl MCH (26-32) pg MCHC (32-36) g/dl RDW (11.5-14.0) % Plt Count (150-450) K/mm3 MPV (7.5-11.0) fl Gran % (36.0-66.0) % Eos # (Auto) (0-0.5) Absolute Lymphs (auto) (1.0-4.6) Absolute Monos (auto) (0.0-1.3) Lymphocytes % (24.0-44.0) % Monocytes % (0.0-12.0) % Eosinophils % (0.00-5.0) % Basophils % (0.0-0.4) % Absolute Granulocytes (1.4-6.9) Basophils # (0-0.4) D-Dimer (215-500) ng/mL Puncture Site pCO2 (35-45) mmHg pO2 (75-100) mmHg Base Excess (-2.0-2.0) O2 Saturation (94-100) g/dF ABG pH (7.35-7.45) ABG HCO3 (22-28) ABG O2 Sat (Measured) (95-100) % Nam Test A-a Gradient a/A Ratio Hemoglobin Carboxyhemoglobin (0.0-6.9) % THgb Methemoglobin (1.4-1.5) % Temperature C POC O2 Flow Rate % Inspiratory BiPAP Expiratory BiPAP Sodium (137-145) mmol/L Potassium (3.5-5.1) mmol/L Chloride (98-107) mmol/L Carbon Dioxide (22-30) mmol/L Anion Gap (5-15) MEQ/L BUN (7-17) mg/dL Creatinine (0.52-1.04) mg/dL Estimated GFR ML/MIN Glucose (74-106) mg/dL Lactic Acid 0.9 (0.4-2.0) Calcium (8.4-10.2) mg/dL Magnesium (1.6-2.3) mg/dL Total Bilirubin (0.2-1.3) mg/dL AST (14-36) U/L ALT (0-35) U/L Alkaline Phosphatase (38-126) U/L Troponin I < 0.012 (0.000-0.034) ng/mL NT-Pro-B Natriuret Pep (0-900) pg/mL Serum Total Protein (6.3-8.2) g/dL Albumin (3.5-5.0) g/dL Influenza Type A Ag (NEGATIVE) Influenza Type B Ag (NEGATIVE) - Progress Progress: improved, re-examined Air Movement: fair Progress Note: 09/19/21 20:42 Chest x-ray shows cardiomegaly with bibasilar fluid collection and question of bilateral pleural effusions. No definite infiltrate present Medical decision making: This patient has congestive heart failure as well as hypercapnia. I spoke with Dr. Sullivan. We will admit her into telemetry service and provide her with BiPAP as well as Lasix intravenously. We will then repeat labs in the morning. Adjustment will be based on follow-up ABGs. We will have respiratory therapy follow her in-house as well. We will continue Eliquis 5 mg orally twice a day. Patient is too large to fit in our CAT scanner or to perform a VQ scan and therefore she will be anticoagulated. Blood Culture(s) Obtained: No Antibiotics given: No Counseled pt/family regarding: lab results, diagnosis, rad results - Departure Departure Disposition: In-patient Admission Clinical Impression: Hypercapnia, CHF exacerbation, Hypoxia Condition: Fair Critical Care Time: Yes Critical Care Time(excluding separately billable procedures): Critical 30-74 mins (35 minutes) Referrals: KENYA REYES, PARKING MANAGER [Primary Care Provider] - Follow up/PCP as directed Instructions: Heart Failure
[2021-09-19 18:59] LABS: Absolute Neutrophil Ct (ANC) 5.37 (1.4-6.9); BASOPHIL % 0.1 % (0.0-0.4); Basophil (Absolute #) 0.01 (0-0.4); Eosinophil % 0.9 % (0.00-5.0); Eosinophil (Absolute #) 0.06 (0-0.5); Hematocrit 41.7 % (35-47); Hemoglobin 11.4 gm/dl (12.0-16.0); Lymphocyte (Absolute #) 0.84 (1.0-4.6); Lymphocytes % 12.3 % (24.0-44.0); Mean Cell Volume 104.5 fl (78-100); Mean Corpuscular Hemoglobin 28.6 pg (26-32); Mean Corpuscular Hgb Concent. 27.3 g/dl (32-36); Mean Platelet Volume 10.2 fl (7.5-11.0); Monocyte (Absolute #) 0.54 (0.0-1.3); Monocytes % 7.9 % (0.0-12.0); Neutrophil % 78.8 % (36.0-66.0); Platelet Count 160 K/mm3 (150-450); Red Blood Count 3.99 M/mm3 (4.1-5.4); Red Cell Distribution Width 15.9 % (11.5-14.0); White Blood Count 6.8 K/mm3 (4.0-10.5)
[2021-09-19 19:07] LABS: A-aADO2 153; ABG HEMOGLOBIN 11.8; ABG POTASSIUM 4.5 (3.5-5.1); ARTERIAL BLD GAS O2 SATURATION 80.1 % (95-100); ARTERIAL BLOOD GAS BASE EXCESS 20.2 (-2.0-2.0); ARTERIAL BLOOD GAS FIO2 44 %; ARTERIAL BLOOD GAS pH 7.36 (7.35-7.45); CARBOXYHEMOGLOBIN 2.3 % THgb (0.0-6.9); HCO3- 50.8 (22-28); HGB O2 SAT 77.8 g/dF (94-100); Methhemoglobin 0.6 % (1.4-1.5)
[2021-09-19 19:08] LABS: ABG SITE RIGHT RADIAL; ARTERIAL BLOOD GAS PCO2 90 mmHg (35-45); ARTERIAL BLOOD GAS PO2 48 mmHg (75-100)
[2021-09-19 19:09] LABS: ALLEN TEST OK? yes
[2021-09-19 19:14] LABS: ALBUMIN 3.7 g/dL (3.5-5.0); ALKALINE PHOSPHATASE 75 U/L (38-126); BLOOD UREA NITROGEN 19 mg/dL (7-17); CHLORIDE 96 mmol/L (98-107); Calcium 8.6 mg/dL (8.4-10.2); Creatinine 1 0.65 mg/dL (0.52-1.04); EST GLOMERULAR FILTRATION RATE > 60.0 ML/MIN; Glucose 175 mg/dL (74-106); MAGNESIUM 2.2 mg/dL (1.6-2.3); NT PRO BNP 2870 pg/mL (0-900); Potassium 4.6 mmol/L (3.5-5.1); SGOT/AST 18 U/L (14-36); SGPT/ALT 10 U/L (0-35); SODIUM 144 mmol/L (137-145)
[2021-09-19 19:15] LABS: Carbon Dioxide 40 mmol/L (22-30)
[2021-09-19 19:16] LABS: ANION GAP 12.6 MEQ/L (5-15)
[2021-09-19 19:19] LABS: INFLUENZA A NEGATIVE (NEGATIVE); INFLUENZA B NEGATIVE (NEGATIVE)
[2021-09-19 20:24] LABS: A-aADO2 520; ABG HEMOGLOBIN 11.2; ABG POTASSIUM 4.5 (3.5-5.1); ARTERIAL BLD GAS O2 SATURATION 96.5 % (95-100); ARTERIAL BLOOD GAS BASE EXCESS 16.9 (-2.0-2.0); ARTERIAL BLOOD GAS PCO2 93 mmHg (35-45); ARTERIAL BLOOD GAS PO2 77 mmHg (75-100); ARTERIAL BLOOD GAS pH 7.32 (7.35-7.45); CARBOXYHEMOGLOBIN 2.3 % THgb (0.0-6.9); HCO3- 47.9 (22-28); HGB O2 SAT 93.3 g/dF (94-100)
[2021-09-19 20:25] LABS: ABG SITE RIGHT RADIAL; ALLEN TEST OK? YES; ARTERIAL BLOOD GAS FIO2 50 %
[2021-09-19] MEDS ORDERED: Lasix 40 MG/4 ML IV ONE (20:34)
[2021-09-19] MEDS ORDERED: ELIQUIS 2.5 MG TABLET PO ONE (20:36)
[2021-09-19 21:40] LABS: A-aADO2 170; ABG HEMOGLOBIN 11.4; ABG POTASSIUM 4.4 (3.5-5.1); ABG SITE RIGHT RADIAL; ALLEN TEST OK? YES; ARTERIAL BLOOD GAS BASE EXCESS 19.5 (-2.0-2.0); ARTERIAL BLOOD GAS FIO2 50 %; ARTERIAL BLOOD GAS PCO2 86 mmHg (35-45); ARTERIAL BLOOD GAS PO2 79 mmHg (75-100); ARTERIAL BLOOD GAS pH 7.37 (7.35-7.45); HCO3- 49.7 (22-28); HGB O2 SAT 94.1 g/dF (94-100); Methhemoglobin 0.9 % (1.4-1.5)
[2021-09-19 21:52] LABS: Slide Review 1 YES
[2021-09-19] MEDS ORDERED: Lasix 40 MG/4 ML ONE (22:06)
[2021-09-19] MEDS ORDERED: Lasix 40 MG/4 ML IV SCH (23:07)
[2021-09-19] MEDS ORDERED: Zofran 4 MG/2 ML VIAL IV PRN (23:07)
[2021-09-19] MEDS ORDERED: TYLENOL 325 MG PO PRN (23:07)
[2021-09-20 01:26] LABS: Appearance CLEAR (CLEAR); Bilirubin NEGATIVE (NEGATIVE); Blood SMALL Ery/ul (0-5); Epithelial Cells RARE /HPF (FEW); Glucose NEGATIVE (NEGATIVE); Hyaline Casts 0-2 /LPF (0-2); Ketones NEGATIVE (NEGATIVE); Leukocyte Esterase NEGATIVE (NEGATIVE); Mucus MODERATE /HPF (NEGATIVE); Nitrite NEGATIVE (NEGATIVE); Protein,Urine Dip 100 (Negative); Specific Gravity 1.021 (1.005-1.025); Urobilinogen 4 mg/dL (0-1)
[2021-09-20] MEDS: ELIQUIS 2.5 MG TABLET PO SCH ×2 (02:06→10:57)
[2021-09-20] MEDS ORDERED: DUONEB 0.5-3 MG/3 ml Neb IH PRN (02:08)
[2021-09-20] MEDS ORDERED: VENTOLIN COMMON CANISTER IH PRN (02:08)
[2021-09-20] MEDS: Sodium Chloride 0.9% 1000 ML 1,000 ML IV SCH (02:08)
[2021-09-20 03:46] LABS: Absolute Neutrophil Ct (ANC) 5.14 (1.4-6.9); BASOPHIL % 0.1 % (0.0-0.4); Basophil (Absolute #) 0.01 (0-0.4); Eosinophil % 1.9 % (0.00-5.0); Eosinophil (Absolute #) 0.13 (0-0.5); Hemoglobin 10.9 gm/dl (12.0-16.0); Lymphocyte (Absolute #) 0.71 (1.0-4.6); Lymphocytes % 10.5 % (24.0-44.0); Mean Cell Volume 103.4 fl (78-100); Mean Corpuscular Hemoglobin 28.9 pg (26-32); Mean Corpuscular Hgb Concent. 27.9 g/dl (32-36); Mean Platelet Volume 10.2 fl (7.5-11.0); Monocyte (Absolute #) 0.79 (0.0-1.3); Monocytes % 11.7 % (0.0-12.0); Neutrophil % 75.8 % (36.0-66.0); Platelet Count 148 K/mm3 (150-450); Red Blood Count 3.77 M/mm3 (4.1-5.4); Red Cell Distribution Width 15.9 % (11.5-14.0); White Blood Count 6.8 K/mm3 (4.0-10.5)
[2021-09-20 04:42] LABS: ALBUMIN 3.5 g/dL (3.5-5.0); ALKALINE PHOSPHATASE 69 U/L (38-126); BLOOD UREA NITROGEN 17 mg/dL (7-17); CHLORIDE 94 mmol/L (98-107); Calcium 8.4 mg/dL (8.4-10.2); Creatinine 1 0.61 mg/dL (0.52-1.04); EST GLOMERULAR FILTRATION RATE > 60.0 ML/MIN; Glucose 132 mg/dL (74-106); NT PRO BNP 3270 pg/mL (0-900); SGOT/AST 16 U/L (14-36); SGPT/ALT 9 U/L (0-35); SODIUM 143 mmol/L (137-145); Total Protein 6.5 g/dL (6.3-8.2)
[2021-09-20 05:16] LABS: A-aADO2 161; ABG HEMOGLOBIN 11.3; ABG SITE LEFT RADIAL; ALLEN TEST OK? YES; ARTERIAL BLD GAS O2 SATURATION 98.6 % (95-100); ARTERIAL BLOOD GAS FIO2 50 %; ARTERIAL BLOOD GAS PCO2 84 mmHg (35-45); ARTERIAL BLOOD GAS PO2 91 mmHg (75-100); HGB O2 SAT 95.7 g/dF (94-100); Methhemoglobin 0.8 % (1.4-1.5)
[2021-09-20 05:46] LABS: Carbon Dioxide 42 mmol/L (22-30)
--- NOTE | 2021-09-20 09:17 | XRAY ---
Indication: Short of breath. Comparison: July 30, 2021. Portable chest again demonstrates marked cardiomegaly, central vascular congestion, and moderate bibasilar effusions favoring cardiac decompensation. Superimposed pneumonia not completely excluded. Bony thorax intact.
[2021-09-20] MEDS: Lasix 40 MG/4 ML IV SCH ×2 (10:57→22:20)
[2021-09-20] MEDS ORDERED: HUMULIN R 100 UNIT in Sodium Chloride 0.9% 100 ML BAG 100 ML IV PRN (12:06)
--- NOTE | 2021-09-20 13:19 | PCM.HP ---
History of Present Illness - Chief Complaint Chief Complaint: Hypercapnia, CHF Exacerbation, Hypoxia. History of Present Illness: is a 60 year old female patient of [employer] Nury Jansen who presented to ER with change in mental status. Per daughter,patient became lethargic,sleeping all day and unaware of bowel and urine incontinence as she laid on her couch. PMHx HTN, obesity,asthma,COPD O2 dependent at 6L,CHF, outside rigger anticoag due to high risk for clot . - Review of Systems Constitutional: Lethargy Eyes: No Symptoms Ears, Nose, & Throat: No Symptoms Respiratory: Short Of Breath Cardiac: Edema Abdominal/Gastrointestinal: No Symptoms Genitourinary Symptoms: Incontinence Musculoskeletal: Arthralgias, Fall (3 days ago evaluated at [facility]), Myalgias Skin: Other (redness RLE abrasions toe and chin) Neurological: Lethargy Psychological: Anxiety, Depression Hematologic/Lymphatic: Other (is on low dose Eliquis for risk of clot) Medications & Allergies Home Medications: Home Medication List Albuterol Sulfate [Ventolin Hfa] 2 puffs IH QID PRN 07/27/21 [History Confirmed 09/19/21] Allopurinol 300 mg [Zyloprim 300 mg] 300 mg PO DAILY 07/27/21 [History Confirmed 09/19/21] Apixaban [Eliquis] 5 mg PO DAILY 07/27/21 [History Confirmed 09/19/21] Escitalopram Oxalate 20 mg PO DAILY 07/27/21 [History Confirmed 09/19/21] Montelukast Sodium 10 mg [Singulair 10 MG] 10 mg PO HS 07/27/21 [History Confirmed 09/19/21] hydrOXYzine HCL [Hydroxyzine HCl] 50 mg PO BID 07/27/21 [History Confirmed 09/19/21] Metformin HCl Xr 500 mg [Glucophage XR 500 MG] 500 mg PO DAILY 30 Days #30 tab 07/30/21 [Rx Confirmed 09/19/21] Allergies/Adverse Reactions: Allergies Allergy/AdvReac Type Severity Reaction Status Date / Time Penicillins Allergy Hives Verified 09/19/21 18:43 - Past Medical History Past Medical History: Yes Neurological History: No Pertinent History ENT History: No Pertinent History Cardiac History: Congestive Heart Failure, Hypertension Respiratory History: CHF, COPD Endocrine Medical History: No Pertinent History Musculoskelatal History: No Pertinent History GI Medical History: No Pertinent History History: Other Pyscho-Social History: Anxiety, Depression Reproductive Disorders: No Pertinent History Comment: KIDNEY STONES - Past Surgical History Past Surgical History: Yes Neuro Surgical History: No Pertinent History Cardiac History: No Pertinent History Respiratory Surgery: No Pertinent History GI Surgical History: Cholecystectomy Genitourinary Surgical Hx: Kidney Surgery Musculskeletal Surgical Hx: No Pertinent History Female Surgical History: No Pertinent History Other Surgical History: Cysto with stent placement. - Social History Smoking Status: Current every day smoker How long have you smoked: 40yrs Exposure to second hand smoke: No Alcohol: None Drug Use: none - Physical Exam Vital Signs: Vital Signs - 24 hr Temp Pulse Resp BP Pulse Ox 09/20/21 12:00 98.7 F 79 16 128/79 87 L 09/20/21 11:01 87 L 09/20/21 08:00 98.7 F 79 23 128/79 09/20/21 07:46 80 18 90 L 09/20/21 04:00 97.5 F 91 H 19 128/79 95 09/20/21 00:53 97 09/20/21 00:22 97 H 22 96 09/20/21 00:09 98.0 F 106 H 20 127/70 95 09/19/21 22:00 68 18 138/63 93 L 09/19/21 21:00 69 16 130/59 93 L 09/19/21 20:00 76 16 140/69 93 L 09/19/21 19:00 77 18 143/94 94 L 09/19/21 18:22 98 09/19/21 18:05 98.4 F 100 H 23 159/82 93 L General Appearance: mild distress Neurologic Exam: alert, oriented x 3, cooperative Eye Exam: eyes nml inspection Ears, Nose, Throat Exam: normal ENT inspection Neck Exam: other (no JVD,no mass) Respiratory Exam: diminished breath sounds, wheezing Cardiovascular Exam: regular rate/rhythm Extremity Exam: other (edema bilat LE right >left) Skin Exam: warm, dry, other (RLE redness increase temp lower leg with small abrasion 3rd toe and chin) Wound Assessment: Skin/Wound Assessment Wound/Incision Assessment Start: 09/20/21 00:53 Text: Status: Active Freq: Q6H Protocol: Document 09/20/21 12:00 AWG (Rec: 09/20/21 12:23 AWG [id number]) Wound/Incision Assessment Left Anterior Abdomen Wound Stage Non Pressure Wound Dressing Status Dry & Intact Drainage Amount None Drainage Odor Mild Odor General Appearance Open to air Wound Bed Greatest Portion Red (Granulation) Wound Bed Lesser Portion Red (Granulation) Surrounding Tissue Bright Red Wound Photo Photo Taken No Results - Labs Lab/Micro Results: Lab Results-Last 24 Hours 09/19/21 09/19/21 09/19/21 Range/Units 18:15 18:46 18:46 WBC 6.8 (4.0-10.5) K/mm3 RBC 3.99 L (4.1-5.4) M/mm3 Hgb 11.4 L (12.0-16.0) gm/dl Hct 41.7 (35-47) % MCV 104.5 H (78-100) fl MCH 28.6 (26-32) pg MCHC 27.3 L (32-36) g/dl RDW 15.9 H (11.5-14.0) % Plt Count 160 (150-450) K/mm3 MPV 10.2 (7.5-11.0) fl Gran % 78.8 H (36.0-66.0) % Eos # (Auto) 0.06 (0-0.5) Absolute Lymphs (auto) 0.84 L (1.0-4.6) Absolute Monos (auto) 0.54 (0.0-1.3) Lymphocytes % 12.3 L (24.0-44.0) % Monocytes % 7.9 (0.0-12.0) % Eosinophils % 0.9 (0.00-5.0) % Basophils % 0.1 (0.0-0.4) % Absolute Granulocytes 5.37 (1.4-6.9) Basophils # 0.01 (0-0.4) D-Dimer (215-500) ng/mL Puncture Site pCO2 (35-45) mmHg pO2 (75-100) mmHg Base Excess (-2.0-2.0) O2 Saturation (94-100) g/dF ABG pH (7.35-7.45) ABG HCO3 (22-28) ABG O2 Sat (Measured) (95-100) % Nam Test A-a Gradient a/A Ratio Hemoglobin Carboxyhemoglobin (0.0-6.9) % THgb Methemoglobin (1.4-1.5) % Temperature C POC O2 Flow Rate % Inspiratory BiPAP Expiratory BiPAP Sodium (137-145) mmol/L Potassium (3.5-5.1) mmol/L Chloride (98-107) mmol/L Carbon Dioxide (22-30) mmol/L Anion Gap (5-15) MEQ/L BUN (7-17) mg/dL Creatinine (0.52-1.04) mg/dL Estimated GFR ML/MIN Glucose (74-106) mg/dL POC Glucometer (74 to 106) mg/dL Lactic Acid 0.9 (0.4-2.0) Calcium (8.4-10.2) mg/dL Magnesium (1.6-2.3) mg/dL Total Bilirubin (0.2-1.3) mg/dL AST (14-36) U/L ALT (0-35) U/L Alkaline Phosphatase (38-126) U/L Troponin I < 0.012 (0.000-0.034) ng/mL NT-Pro-B Natriuret Pep (0-900) pg/mL Serum Total Protein (6.3-8.2) g/dL Albumin (3.5-5.0) g/dL Urine Color (YELLOW) Urine Appearance (CLEAR) Urine pH (5-6) Ur Specific [place] (1.005-1.025) Urine Protein (Negative) Urine Ketones (NEGATIVE) Urine Blood (0-5) Dalton/ul Urine Nitrite (NEGATIVE) Urine Bilirubin (NEGATIVE) Urine Urobilinogen (0-1) mg/dL Ur Leukocyte Esterase (NEGATIVE) Urine WBC (Auto) (0-5) /HPF Urine RBC (Auto) (0-2) /HPF U Hyaline Cast (Auto) (0-2) /LPF U Epithel Cells (Auto) (FEW) /HPF Urine Bacteria (Auto) (NEGATIVE) /HPF Urine Mucus (Auto) (NEGATIVE) /HPF Urine Culture Reflexed (NO) Urine Glucose (NEGATIVE) mg/dL Influenza Type A Ag (NEGATIVE) Influenza Type B Ag (NEGATIVE) SARS-CoV-2 (PCR) (NEGATIVE) Slides for Path Review YES 09/19/21 09/19/21 09/19/21 Range/Units 18:46 18:46 18:46 WBC (4.0-10.5) K/mm3 RBC (4.1-5.4) M/mm3 Hgb (12.0-16.0) gm/dl Hct (35-47) % MCV (78-100) fl MCH (26-32) pg MCHC (32-36) g/dl RDW (11.5-14.0) % Plt Count (150-450) K/mm3 MPV (7.5-11.0) fl Gran % (36.0-66.0) % Eos # (Auto) (0-0.5) Absolute Lymphs (auto) (1.0-4.6) Absolute Monos (auto) (0.0-1.3) Lymphocytes % (24.0-44.0) % Monocytes % (0.0-12.0) % Eosinophils % (0.00-5.0) % Basophils % (0.0-0.4) % Absolute Granulocytes (1.4-6.9) Basophils # (0-0.4) D-Dimer 4779 H* (215-500) ng/mL Puncture Site pCO2 (35-45) mmHg pO2 (75-100) mmHg Base Excess (-2.0-2.0) O2 Saturation (94-100) g/dF ABG pH (7.35-7.45) ABG HCO3 (22-28) ABG O2 Sat (Measured) (95-100) % Nam Test A-a Gradient a/A Ratio Hemoglobin Carboxyhemoglobin (0.0-6.9) % THgb Methemoglobin (1.4-1.5) % Temperature C POC O2 Flow Rate % Inspiratory BiPAP Expiratory BiPAP Sodium 144 (137-145) mmol/L Potassium 4.6 (3.5-5.1) mmol/L Chloride 96 L (98-107) mmol/L Carbon Dioxide 40 H (22-30) mmol/L Anion Gap 12.6 (5-15) MEQ/L BUN 19 H (7-17) mg/dL Creatinine 0.65 (0.52-1.04) mg/dL Estimated GFR > 60.0 ML/MIN Glucose 175 H (74-106) mg/dL POC Glucometer (74 to 106) mg/dL Lactic Acid (0.4-2.0) Calcium 8.6 (8.4-10.2) mg/dL Magnesium 2.2 (1.6-2.3) mg/dL Total Bilirubin 0.90 (0.2-1.3) mg/dL AST 18 (14-36) U/L ALT 10 (0-35) U/L Alkaline Phosphatase 75 (38-126) U/L Troponin I (0.000-0.034) ng/mL NT-Pro-B Natriuret Pep 2870 H (0-900) pg/mL Serum Total Protein 7.0 (6.3-8.2) g/dL Albumin 3.7 (3.5-5.0) g/dL Urine Color (YELLOW) Urine Appearance (CLEAR) Urine pH (5-6) Ur Specific [place] (1.005-1.025) Urine Protein (Negative) Urine Ketones (NEGATIVE) Urine Blood (0-5) Dalton/ul Urine Nitrite (NEGATIVE) Urine Bilirubin (NEGATIVE) Urine Urobilinogen (0-1) mg/dL Ur Leukocyte Esterase (NEGATIVE) Urine WBC (Auto) (0-5) /HPF Urine RBC (Auto) (0-2) /HPF U Hyaline Cast (Auto) (0-2) /LPF U Epithel Cells (Auto) (FEW) /HPF Urine Bacteria (Auto) (NEGATIVE) /HPF Urine Mucus (Auto) (NEGATIVE) /HPF Urine Culture Reflexed (NO) Urine Glucose (NEGATIVE) mg/dL Influenza Type A Ag NEGATIVE (NEGATIVE) Influenza Type B Ag NEGATIVE (NEGATIVE) SARS-CoV-2 (PCR) (NEGATIVE) Slides for Path Review 09/19/21 09/19/21 09/19/21 Range/Units 19:06 20:14 20:54 WBC (4.0-10.5) K/mm3 RBC (4.1-5.4) M/mm3 Hgb (12.0-16.0) gm/dl Hct (35-47) % MCV (78-100) fl MCH (26-32) pg MCHC (32-36) g/dl RDW (11.5-14.0) % Plt Count (150-450) K/mm3 MPV (7.5-11.0) fl Gran % (36.0-66.0) % Eos # (Auto) (0-0.5) Absolute Lymphs (auto) (1.0-4.6) Absolute Monos (auto) (0.0-1.3) Lymphocytes % (24.0-44.0) % Monocytes % (0.0-12.0) % Eosinophils % (0.00-5.0) % Basophils % (0.0-0.4) % Absolute Granulocytes (1.4-6.9) Basophils # (0-0.4) D-Dimer (215-500) ng/mL Puncture Site RIGHT RADIAL RIGHT RADIAL pCO2 90 H* 93 H* (35-45) mmHg pO2 48 L* 77 (75-100) mmHg Base Excess 20.2 H 16.9 H (-2.0-2.0) O2 Saturation 77.8 L 93.3 L (94-100) g/dF ABG pH 7.36 7.32 L (7.35-7.45) ABG HCO3 50.8 H* 47.9 H* (22-28) ABG O2 Sat (Measured) 80.1 L 96.5 (95-100) % Nam Test yes YES A-a Gradient 153 520 a/A Ratio 0.24 0.13 Hemoglobin 11.8 11.2 Carboxyhemoglobin 2.3 2.3 (0.0-6.9) % THgb Methemoglobin 0.6 L 1.0 L (1.4-1.5) % Temperature 37.0 37.0 C POC O2 Flow Rate 44 50 % Inspiratory BiPAP 12 Expiratory BiPAP 6 Sodium (137-145) mmol/L Potassium 4.5 4.5 (3.5-5.1) mmol/L Chloride (98-107) mmol/L Carbon Dioxide (22-30) mmol/L Anion Gap (5-15) MEQ/L BUN (7-17) mg/dL Creatinine (0.52-1.04) mg/dL Estimated GFR ML/MIN Glucose (74-106) mg/dL POC Glucometer (74 to 106) mg/dL Lactic Acid (0.4-2.0) Calcium (8.4-10.2) mg/dL Magnesium (1.6-2.3) mg/dL Total Bilirubin (0.2-1.3) mg/dL AST (14-36) U/L ALT (0-35) U/L Alkaline Phosphatase (38-126) U/L Troponin I (0.000-0.034) ng/mL NT-Pro-B Natriuret Pep (0-900) pg/mL Serum Total Protein (6.3-8.2) g/dL Albumin (3.5-5.0) g/dL Urine Color (YELLOW) Urine Appearance (CLEAR) Urine pH (5-6) Ur Specific [place] (1.005-1.025) Urine Protein (Negative) Urine Ketones (NEGATIVE) Urine Blood (0-5) Dalton/ul Urine Nitrite (NEGATIVE) Urine Bilirubin (NEGATIVE) Urine Urobilinogen (0-1) mg/dL Ur Leukocyte Esterase (NEGATIVE) Urine WBC (Auto) (0-5) /HPF Urine RBC (Auto) (0-2) /HPF U Hyaline Cast (Auto) (0-2) /LPF U Epithel Cells (Auto) (FEW) /HPF Urine Bacteria (Auto) (NEGATIVE) /HPF Urine Mucus (Auto) (NEGATIVE) /HPF Urine Culture Reflexed (NO) Urine Glucose (NEGATIVE) mg/dL Influenza Type A Ag (NEGATIVE) Influenza Type B Ag (NEGATIVE) SARS-CoV-2 (PCR) NEGATIVE (NEGATIVE) Slides for Path Review 09/19/21 09/19/21 09/19/21 Range/Units 21:26 21:31 23:25 WBC (4.0-10.5) K/mm3 RBC (4.1-5.4) M/mm3 Hgb (12.0-16.0) gm/dl Hct (35-47) % MCV (78-100) fl MCH (26-32) pg MCHC (32-36) g/dl RDW (11.5-14.0) % Plt Count (150-450) K/mm3 MPV (7.5-11.0) fl Gran % (36.0-66.0) % Eos # (Auto) (0-0.5) Absolute Lymphs (auto) (1.0-4.6) Absolute Monos (auto) (0.0-1.3) Lymphocytes % (24.0-44.0) % Monocytes % (0.0-12.0) % Eosinophils % (0.00-5.0) % Basophils % (0.0-0.4) % Absolute Granulocytes (1.4-6.9) Basophils # (0-0.4) D-Dimer (215-500) ng/mL Puncture Site RIGHT RADIAL pCO2 86 H* (35-45) mmHg pO2 79 (75-100) mmHg Base Excess 19.5 H (-2.0-2.0) O2 Saturation 94.1 (94-100) g/dF ABG pH 7.37 (7.35-7.45) ABG HCO3 49.7 H* (22-28) ABG O2 Sat (Measured) 97.0 (95-100) % Nam Test YES A-a Gradient 170 a/A Ratio 0.32 Hemoglobin 11.4 Carboxyhemoglobin 2.0 (0.0-6.9) % THgb Methemoglobin 0.9 L (1.4-1.5) % Temperature 37.0 C POC O2 Flow Rate 50 % Inspiratory BiPAP 14 Expiratory BiPAP 6 Sodium (137-145) mmol/L Potassium 4.4 (3.5-5.1) mmol/L Chloride (98-107) mmol/L Carbon Dioxide (22-30) mmol/L Anion Gap (5-15) MEQ/L BUN (7-17) mg/dL Creatinine (0.52-1.04) mg/dL Estimated GFR ML/MIN Glucose (74-106) mg/dL POC Glucometer (74 to 106) mg/dL Lactic Acid (0.4-2.0) Calcium (8.4-10.2) mg/dL Magnesium (1.6-2.3) mg/dL Total Bilirubin (0.2-1.3) mg/dL AST (14-36) U/L ALT (0-35) U/L Alkaline Phosphatase (38-126) U/L Troponin I < 0.012 (0.000-0.034) ng/mL NT-Pro-B Natriuret Pep (0-900) pg/mL Serum Total Protein (6.3-8.2) g/dL Albumin (3.5-5.0) g/dL Urine Color MARIO (YELLOW) Urine Appearance CLEAR (CLEAR) Urine pH 5.0 (5-6) Ur Specific [place] 1.021 (1.005-1.025) Urine Protein 100 (Negative) Urine Ketones NEGATIVE (NEGATIVE) Urine Blood SMALL (0-5) Dalton/ul Urine Nitrite NEGATIVE (NEGATIVE) Urine Bilirubin NEGATIVE (NEGATIVE) Urine Urobilinogen 4 (0-1) mg/dL Ur Leukocyte Esterase NEGATIVE (NEGATIVE) Urine WBC (Auto) 6-10 (0-5) /HPF Urine RBC (Auto) 11-15 (0-2) /HPF U Hyaline Cast (Auto) 0-2 (0-2) /LPF U Epithel Cells (Auto) RARE (FEW) /HPF Urine Bacteria (Auto) NONE (NEGATIVE) /HPF Urine Mucus (Auto) MODERATE (NEGATIVE) /HPF Urine Culture Reflexed ORDERED SEPARATELY (NO) Urine Glucose NEGATIVE (NEGATIVE) mg/dL Influenza Type A Ag (NEGATIVE) Influenza Type B Ag (NEGATIVE) SARS-CoV-2 (PCR) (NEGATIVE) Slides for Path Review 09/20/21 09/20/21 09/20/21 Range/Units 00:30 03:40 03:40 WBC 6.8 (4.0-10.5) K/mm3 RBC 3.77 L (4.1-5.4) M/mm3 Hgb 10.9 L (12.0-16.0) gm/dl Hct 39.0 (35-47) % MCV 103.4 H (78-100) fl MCH 28.9 (26-32) pg MCHC 27.9 L (32-36) g/dl RDW 15.9 H (11.5-14.0) % Plt Count 148 L (150-450) K/mm3 MPV 10.2 (7.5-11.0) fl Gran % 75.8 H (36.0-66.0) % Eos # (Auto) 0.13 (0-0.5) Absolute Lymphs (auto) 0.71 L (1.0-4.6) Absolute Monos (auto) 0.79 (0.0-1.3) Lymphocytes % 10.5 L (24.0-44.0) % Monocytes % 11.7 (0.0-12.0) % Eosinophils % 1.9 (0.00-5.0) % Basophils % 0.1 (0.0-0.4) % Absolute Granulocytes 5.14 (1.4-6.9) Basophils # 0.01 (0-0.4) D-Dimer (215-500) ng/mL Puncture Site pCO2 (35-45) mmHg pO2 (75-100) mmHg Base Excess (-2.0-2.0) O2 Saturation (94-100) g/dF ABG pH (7.35-7.45) ABG HCO3 (22-28) ABG O2 Sat (Measured) (95-100) % Nam Test A-a Gradient a/A Ratio Hemoglobin Carboxyhemoglobin (0.0-6.9) % THgb Methemoglobin (1.4-1.5) % Temperature C POC O2 Flow Rate % Inspiratory BiPAP Expiratory BiPAP Sodium (137-145) mmol/L Potassium (3.5-5.1) mmol/L Chloride (98-107) mmol/L Carbon Dioxide (22-30) mmol/L Anion Gap (5-15) MEQ/L BUN (7-17) mg/dL Creatinine (0.52-1.04) mg/dL Estimated GFR ML/MIN Glucose (74-106) mg/dL POC Glucometer (74 to 106) mg/dL Lactic Acid (0.4-2.0) Calcium (8.4-10.2) mg/dL Magnesium (1.6-2.3) mg/dL Total Bilirubin (0.2-1.3) mg/dL AST (14-36) U/L ALT (0-35) U/L Alkaline Phosphatase (38-126) U/L Troponin I < 0.012 < 0.012 (0.000-0.034) ng/mL NT-Pro-B Natriuret Pep (0-900) pg/mL Serum Total Protein (6.3-8.2) g/dL Albumin (3.5-5.0) g/dL Urine Color (YELLOW) Urine Appearance (CLEAR) Urine pH (5-6) Ur Specific [place] (1.005-1.025) Urine Protein (Negative) Urine Ketones (NEGATIVE) Urine Blood (0-5) Dalton/ul Urine Nitrite (NEGATIVE) Urine Bilirubin (NEGATIVE) Urine Urobilinogen (0-1) mg/dL Ur Leukocyte Esterase (NEGATIVE) Urine WBC (Auto) (0-5) /HPF Urine RBC (Auto) (0-2) /HPF U Hyaline Cast (Auto) (0-2) /LPF U Epithel Cells (Auto) (FEW) /HPF Urine Bacteria (Auto) (NEGATIVE) /HPF Urine Mucus (Auto) (NEGATIVE) /HPF Urine Culture Reflexed (NO) Urine Glucose (NEGATIVE) mg/dL Influenza Type A Ag (NEGATIVE) Influenza Type B Ag (NEGATIVE) SARS-CoV-2 (PCR) (NEGATIVE) Slides for Path Review 09/20/21 09/20/21 09/20/21 Range/Units 03:40 05:08 06:20 WBC (4.0-10.5) K/mm3 RBC (4.1-5.4) M/mm3 Hgb (12.0-16.0) gm/dl Hct (35-47) % MCV (78-100) fl MCH (26-32) pg MCHC (32-36) g/dl RDW (11.5-14.0) % Plt Count (150-450) K/mm3 MPV (7.5-11.0) fl Gran % (36.0-66.0) % Eos # (Auto) (0-0.5) Absolute Lymphs (auto) (1.0-4.6) Absolute Monos (auto) (0.0-1.3) Lymphocytes % (24.0-44.0) % Monocytes % (0.0-12.0) % Eosinophils % (0.00-5.0) % Basophils % (0.0-0.4) % Absolute Granulocytes (1.4-6.9) Basophils # (0-0.4) D-Dimer (215-500) ng/mL Puncture Site LEFT RADIAL pCO2 84 H* (35-45) mmHg pO2 91 (75-100) mmHg Base Excess 22.0 H (-2.0-2.0) O2 Saturation 95.7 (94-100) g/dF ABG pH 7.40 (7.35-7.45) ABG HCO3 52.0 H* (22-28) ABG O2 Sat (Measured) 98.6 (95-100) % Nam Test YES A-a Gradient 161 a/A Ratio 0.36 Hemoglobin 11.3 Carboxyhemoglobin 2.0 (0.0-6.9) % THgb Methemoglobin 0.8 L (1.4-1.5) % Temperature 37.0 C POC O2 Flow Rate 50 % Inspiratory BiPAP 14 Expiratory BiPAP 6 Sodium 143 (137-145) mmol/L Potassium 4.0 4.0 (3.5-5.1) mmol/L Chloride 94 L (98-107) mmol/L Carbon Dioxide 42 H (22-30) mmol/L Anion Gap 11.0 (5-15) MEQ/L BUN 17 (7-17) mg/dL Creatinine 0.61 (0.52-1.04) mg/dL Estimated GFR > 60.0 ML/MIN Glucose 132 H (74-106) mg/dL POC Glucometer (74 to 106) mg/dL Lactic Acid (0.4-2.0) Calcium 8.4 (8.4-10.2) mg/dL Magnesium (1.6-2.3) mg/dL Total Bilirubin 1.00 (0.2-1.3) mg/dL AST 16 (14-36) U/L ALT 9 (0-35) U/L Alkaline Phosphatase 69 (38-126) U/L Troponin I < 0.012 (0.000-0.034) ng/mL NT-Pro-B Natriuret Pep 3270 H (0-900) pg/mL Serum Total Protein 6.5 (6.3-8.2) g/dL Albumin 3.5 (3.5-5.0) g/dL Urine Color (YELLOW) Urine Appearance (CLEAR) Urine pH (5-6) Ur Specific [place] (1.005-1.025) Urine Protein (Negative) Urine Ketones (NEGATIVE) Urine Blood (0-5) Dalton/ul Urine Nitrite (NEGATIVE) Urine Bilirubin (NEGATIVE) Urine Urobilinogen (0-1) mg/dL Ur Leukocyte Esterase (NEGATIVE) Urine WBC (Auto) (0-5) /HPF Urine RBC (Auto) (0-2) /HPF U Hyaline Cast (Auto) (0-2) /LPF U Epithel Cells (Auto) (FEW) /HPF Urine Bacteria (Auto) (NEGATIVE) /HPF Urine Mucus (Auto) (NEGATIVE) /HPF Urine Culture Reflexed (NO) Urine Glucose (NEGATIVE) mg/dL Influenza Type A Ag (NEGATIVE) Influenza Type B Ag (NEGATIVE) SARS-CoV-2 (PCR) (NEGATIVE) Slides for Path Review 09/20/21 Range/Units 11:42 WBC (4.0-10.5) K/mm3 RBC (4.1-5.4) M/mm3 Hgb (12.0-16.0) gm/dl Hct (35-47) % MCV (78-100) fl MCH (26-32) pg MCHC (32-36) g/dl RDW (11.5-14.0) % Plt Count (150-450) K/mm3 MPV (7.5-11.0) fl Gran % (36.0-66.0) % Eos # (Auto) (0-0.5) Absolute Lymphs (auto) (1.0-4.6) Absolute Monos (auto) (0.0-1.3) Lymphocytes % (24.0-44.0) % Monocytes % (0.0-12.0) % Eosinophils % (0.00-5.0) % Basophils % (0.0-0.4) % Absolute Granulocytes (1.4-6.9) Basophils # (0-0.4) D-Dimer (215-500) ng/mL Puncture Site pCO2 (35-45) mmHg pO2 (75-100) mmHg Base Excess (-2.0-2.0) O2 Saturation (94-100) g/dF ABG pH (7.35-7.45) ABG HCO3 (22-28) ABG O2 Sat (Measured) (95-100) % Nam Test A-a Gradient a/A Ratio Hemoglobin Carboxyhemoglobin (0.0-6.9) % THgb Methemoglobin (1.4-1.5) % Temperature C POC O2 Flow Rate % Inspiratory BiPAP Expiratory BiPAP Sodium (137-145) mmol/L Potassium (3.5-5.1) mmol/L Chloride (98-107) mmol/L Carbon Dioxide (22-30) mmol/L Anion Gap (5-15) MEQ/L BUN (7-17) mg/dL Creatinine (0.52-1.04) mg/dL Estimated GFR ML/MIN Glucose (74-106) mg/dL POC Glucometer 140 H (74 to 106) mg/dL Lactic Acid (0.4-2.0) Calcium (8.4-10.2) mg/dL Magnesium (1.6-2.3) mg/dL Total Bilirubin (0.2-1.3) mg/dL AST (14-36) U/L ALT (0-35) U/L Alkaline Phosphatase (38-126) U/L Troponin I (0.000-0.034) ng/mL NT-Pro-B Natriuret Pep (0-900) pg/mL Serum Total Protein (6.3-8.2) g/dL Albumin (3.5-5.0) g/dL Urine Color (YELLOW) Urine Appearance (CLEAR) Urine pH (5-6) Ur Specific [place] (1.005-1.025) Urine Protein (Negative) Urine Ketones (NEGATIVE) Urine Blood (0-5) Dalton/ul Urine Nitrite (NEGATIVE) Urine Bilirubin (NEGATIVE) Urine Urobilinogen (0-1) mg/dL Ur Leukocyte Esterase (NEGATIVE) Urine WBC (Auto) (0-5) /HPF Urine RBC (Auto) (0-2) /HPF U Hyaline Cast (Auto) (0-2) /LPF U Epithel Cells (Auto) (FEW) /HPF Urine Bacteria (Auto) (NEGATIVE) /HPF Urine Mucus (Auto) (NEGATIVE) /HPF Urine Culture Reflexed (NO) Urine Glucose (NEGATIVE) mg/dL Influenza Type A Ag (NEGATIVE) Influenza Type B Ag (NEGATIVE) SARS-CoV-2 (PCR) (NEGATIVE) Slides for Path Review Microbiology 09/19/21 18:28 Blood Culture Gram Stain - Final Blood 09/19/21 23:25 Urine Culture - Final Urine, Indwelling Catheter MIXED LALITA; 3 OR MORE TYPES. NO PREDOMINANT ORGANISM. NO FURTHER WORKUP. PLEASE RESUBMIT IF CLINICALLY INDICATED. Accuchecks Date 09/20/21 Time 11:45 - Radiology Impressions Radiology Exams & Impressions: Radiology Procedures Category Date Time Status CHEST 1 VIEW (PORTABLE) Stat Exams 09/19/21 18:17 Completed - Other Procedures and Tests Respiratory Therapy 09/19/21 19:06 BiPap/CPAP STAT 09/20/21 02:06 Oxygen Oxymask LPM 6 lpm 09/20/21 02:07 Respiratory Therapy Assessment DAILY Assessment/Plan (1) CHF exacerbation Current Visit: Yes Status: Acute Assessment & Plan: acute on chronic CHF Code(s): I50.9 - HEART FAILURE, UNSPECIFIED (2) Acute on chronic respiratory failure with hypercapnia Current Visit: No Status: Acute Code(s): J96.22 - ACUTE AND CHRONIC RESPIRATORY FAILURE WITH HYPERCAPNIA (3) Altered mental status Current Visit: Yes Status: Acute Code(s): R41.82 - ALTERED MENTAL STATUS, UNSPECIFIED (4) Positive blood culture Current Visit: Yes Status: Acute Assessment & Plan: growing gram positive cocci in clusters Code(s): R78.81 - BACTEREMIA (5) D-dimer, elevated Current Visit: No Status: Acute Assessment & Plan: anticoagulant,unable to test further due to patient's size Code(s): R79.89 - OTHER SPECIFIED ABNORMAL FINDINGS OF BLOOD CHEMISTRY
[2021-09-20] MEDS ORDERED: TYLENOL EXTRA STRENGTH 500 MG PO PRN (14:03)
[2021-09-20] MEDS: NORCO 7.5/325 MG TAB PO PRN (14:38)
[2021-09-20] MEDS: ROCEPHIN 2 Gm-D5w 50ML BAG** 2 G/50 ML IVPB IV SCH (14:38)
[2021-09-20] MEDS: Glucophage XR 500 MG PO SCH (17:19)
[2021-09-20] MEDS: Lexapro 10 MG PO SCH (17:19)
[2021-09-20] MEDS: ZYLOPRIM 300 MG PO SCH (17:19)
[2021-09-20] MEDS ORDERED: NON-FORMULARY ITEM (Hydroxyzine Hcl [Hydroxyzine Hcl] 50 MG Tablet) PO SCH (22:00)
[2021-09-20] MEDS: ATARAX 25 MG PO SCH (22:21)
[2021-09-20] MEDS: Singulair 10 MG PO SCH (22:21)
[2021-09-21] MEDS: Sodium Chloride 0.9% 1000 ML 1,000 ML IV SCH (00:29)
[2021-09-21 07:42] LABS: Hematocrit 38.6 % (35-47); Hemoglobin 11.1 gm/dl (12.0-16.0); Mean Cell Volume 101.8 fl (78-100); Mean Corpuscular Hemoglobin 29.3 pg (26-32); Mean Corpuscular Hgb Concent. 28.8 g/dl (32-36); Mean Platelet Volume 10.4 fl (7.5-11.0); Platelet Count 132 K/mm3 (150-450); Red Blood Count 3.79 M/mm3 (4.1-5.4); Red Cell Distribution Width 15.8 % (11.5-14.0); White Blood Count 6.4 K/mm3 (4.0-10.5)
[2021-09-21 08:34] LABS: ALBUMIN 3.5 g/dL (3.5-5.0); ALKALINE PHOSPHATASE 67 U/L (38-126); BLOOD UREA NITROGEN 17 mg/dL (7-17); CHLORIDE 91 mmol/L (98-107); Calcium 8.4 mg/dL (8.4-10.2); EST GLOMERULAR FILTRATION RATE > 60.0 ML/MIN; Glucose 131 mg/dL (74-106); Potassium 4.1 mmol/L (3.5-5.1); SGOT/AST 18 U/L (14-36); SGPT/ALT 8 U/L (0-35); SODIUM 142 mmol/L (137-145); Total Protein 6.7 g/dL (6.3-8.2)
[2021-09-21 08:43] LABS: Carbon Dioxide 46 mmol/L (22-30)
[2021-09-21] MEDS: Lexapro 10 MG PO SCH (08:53)
[2021-09-21] MEDS: ATARAX 25 MG PO SCH ×2 (08:53→21:13)
[2021-09-21] MEDS: Lasix 40 MG/4 ML IV SCH ×2 (08:53→21:13)
[2021-09-21] MEDS: NORCO 7.5/325 MG TAB PO PRN ×2 (08:53→17:50)
[2021-09-21] MEDS: ZYLOPRIM 300 MG PO SCH (08:54)
[2021-09-21 09:56] LABS: ANION GAP 9.1 MEQ/L (5-15)
[2021-09-21] MEDS ORDERED: ELIQUIS 2.5 MG TABLET PO SCH (10:00)
[2021-09-21] MEDS ORDERED: NON-FORMULARY ITEM (Apixaban [Eliquis] 5 MG Tablet) PO SCH (10:00)
[2021-09-21] MEDS ORDERED: NON-FORMULARY ITEM (Escitalopram Oxalate [Escitalopram Oxalate] 20 MG Tablet) PO SCH (10:00)
[2021-09-21] MEDS ORDERED: Zithromax 500 MG/ 250 ML NaCl Premix 500 MG/250 ML IVPB IV SCH (10:00)
[2021-09-21] MEDS: DUONEB 0.5-3 MG/3 ml Neb IH SCH ×3 (10:08→19:35)
[2021-09-21] MEDS: ROCEPHIN 2 Gm-D5w 50ML BAG** 2 G/50 ML IVPB IV SCH (10:17)
[2021-09-21] MEDS: solu-MEDROL 60 MG, Sterile H2O 10 ml 2 ML IV SCH ×6 (10:47→17:44)
[2021-09-21] MEDS ORDERED: Combivent Inhaler COMMON CANISTER IH SCH (11:00)
[2021-09-21] MEDS: Glucophage XR 500 MG PO SCH (17:45)
[2021-09-21] MEDS: Singulair 10 MG PO SCH (21:13)
[2021-09-23 10:05] VITALS: BP 155/77; PULSE 86; O2SAT 93
== END 2021-09-21 22:13 | DRG 291 ==
LOC: ED 17:57 → MED SURG 22:52
PROVIDERS: ADMIT Family Medicine; ATTEND Family Medicine
DX: I50.9 Heart failure, unspecified (principal); J96.22 Acute and chronic respiratory failure with hypercapnia; R78.81 Bacteremia; R41.82 Altered mental status, unspecified; Z99.81 Dependence on supplemental oxygen; I10 Essential (primary) hypertension; Z79.899 Other long term (current) drug therapy; Z79.01 Long term (current) use of anticoagulants; S00.81XA Abrasion of other part of head, initial encounter; S90.414A Abrasion, right lesser toe(s), initial encounter; R79.89 Other specified abnormal findings of blood chemistry; Z20.822 Contact with and (suspected) exposure to COVID-19; E66.01 Morbid (severe) obesity due to excess calories
CPT/HCPCS: 36000; 36415; 36600; 71045; 80053; 81001; 82375; 82803; 82947; 83605; 83735; 83880; 84484; 85025; 85027; 85379; 87040; 87086; 87400; 93005; 94002; 94003; 94640; 94760; 94762; 96374; 99285; 99291; U0003; J0456; J0696; J1940; J2930; A9270-GY

== ENCOUNTER 2022-06-09 01:04 | Observation (INO) | payer MEDICARE ==
[2022-06-09] MEDS ORDERED: DUONEB 0.5-3 MG/3 ml Neb IH ONE ×2 (01:26→01:39)
[2022-06-09] MEDS ORDERED: BENADRYL 50 MG/ML IM ONE (01:33)
[2022-06-09] MEDS ORDERED: Ativan 2 MG/1 ML VIAL IM ONE (01:34)
[2022-06-09] MEDS ORDERED: Ativan 2 MG/1 ML VIAL ONE ×2 (01:46→05:10)
[2022-06-09] MEDS ORDERED: BENADRYL 50 MG/ML ONE (01:46)
--- NOTE | 2022-06-09 02:05 | ERPHSYRPT ---
- History of Present Illness Time Seen by Provider: 06/09/22 01:13 Source: patient, EMS Exam Limitations: clinical condition Patient Subjective Stated Complaint: pt arrived via [facility] ambulance. pt is confused and not coopperative. EM states she was combative en route to facility. family told EMT that she was on morphine but it was stopped early this AM, because of aggressive behavior. pt is confused, and answers some questions correctly. pt is calm at this time but refusing vitals to be taken. states that we are trying to hhurt her and states that that there are knives in the blood pressure cuff and refuses all vitals to be assessed. EMT state she is on hospice . Triage Nursing Assessment: pt is alert and confused. pt sitting up in bed and refusing care at this time, states that she wants to go home. Physician History: 61-year-old female with history of COPD on BiPAP, hypertension, hyperlipidemia, diabetes mellitus on hospice is brought in the ER by EMS with chief complaint of altered mental status confusion and agitation. This has been going on since yesterday. Per family she was initially started on fentanyl patches and couple of days ago was started on morphine and she started acting weird. Family did not give the yesterday evening dose of morphine. Patient is paranoid about daughter trying to harm someone at home. She was being taken to regional ER but became aggressive/combative and is brought in here. Patient is currently calm. Her oxygen saturation is in 80s but not in any distress. She is refusing any treatment. She does have vaginal bleeding which according to her daughter's been going on for last few days. Timing/Duration: yesterday, gradual onset, worse Severity of Symptoms-Max: moderate Severity of Symptoms-Current: moderate Associated Symptoms: agitated, confused, hostile, paranoid Allergies/Adverse Reactions: adhesive tape Allergy (Verified 06/09/22 01:40) Penicillins Allergy (Verified 06/09/22 01:40) Hives morphine Adverse Reaction (Severe, Verified 06/10/22 18:07) AMS Home Medications: Albuterol Sulfate [Ventolin Hfa] 2 puffs IH QID PRN 07/27/21 [History] Allopurinol 300 mg [Zyloprim 300 mg] 300 mg PO DAILY 07/27/21 [History] Montelukast Sodium 10 mg [Singulair 10 MG] 10 mg PO HS 07/27/21 [History] Albuterol/Ipratropium 3ml Neb* [DUONEB 0.5-3 MG/3 ml Neb] 3 ml IH QID PRN 06/09/22 [History] Bupropion HCl Xl 150 mg [Wellbutrin XL 150 MG] 300 mg PO DAILY 06/09/22 [History] Escitalopram Oxalate [Lexapro] 20 mg PO DAILY 06/09/22 [History] Furosemide 40 mg [Lasix 40 MG] 40 mg PO DAILY 06/09/22 [History] Indomethacin 25 mg [Indocin 25 MG] 50 mg PO TID 06/09/22 [History] Polyethylene Glycol 3350 17 gm [Miralax Powder 17GM PACKET] 17 gm PO QDP PRN 06/09/22 [History] Potassium Chloride 20 meq PO BID 06/09/22 [History] Prochlorperazine Maleate 5 mg* [Compazine 5 MG] 10 mg PO Q6HPRN PRN 06/09/22 [History] Sennosides [Senna] 1 cap PO DAILY PRN PRN 06/09/22 [History] Hx Tetanus, Diphtheria Vaccination/Date Given: No Hx Influenza Vaccination/Date Given: No Hx Pneumococcal Vaccination/Date Given: No Travel Risk - International Travel Have you traveled outside of the country in past 3 weeks: No - Coronavirus Screening Are you exhibiting any of the following symptoms?: No Close contact with a COVID-19 positive Pt in past 14-21 Days: No - Vaccine Status Have you recieved a Covid-19 vaccination: No - Past Medical History Pertinent Past Medical History: Yes Neurological History: No Pertinent History ENT History: No Pertinent History Cardiac History: Congestive Heart Failure, Hypertension Respiratory History: CHF, COPD Endocrine Medical History: No Pertinent History Musculoskeletal History: No Pertinent History GI Medical History: No Pertinent History History: Other Psycho-Social History: Anxiety, Depression Female Reproductive Disorders: No Pertinent History Other Medical History: KIDNEY STONES - Past Surgical History Past Surgical History: Yes Neuro Surgical History: No Pertinent History Cardiac: No Pertinent History Respiratory: No Pertinent History Gastrointestinal: Cholecystectomy Genitourinary: Kidney Surgery Musculoskeletal: No Pertinent History Female Surgical History: No Pertinent History Other Surgical History: Cysto with stent placement. - Social History Smoking Status: Never smoker How long have you smoked: 40yrs Exposure to second hand smoke: No Drug Use: none Patient Lives Alone: No - Review of Systems All Other Systems: Unable due to condition - Nursing Vital Signs Nursing Vital Signs: Initial Vital Signs Pulse Rate 114 H 06/09/22 01:07 Respiratory Rate 20 06/09/22 01:07 O2 Sat by Pulse Oximetry 83 L 06/09/22 01:07 Pain Scale Pain Intensity 0 - Physical Exam General Appearance: no apparent distress, alert Eyes, Ears, Nose, Throat Exam: normal ENT inspection, pharynx normal Neck Exam: normal inspection, full range of motion Respiratory Exam: diminished breath sounds Cardiovascular Exam: normal heart sounds, tachycardia Gastrointestinal/Abdominal Exam: soft Neurological Exam: alert, rib matcher and fitter II-XII nml as tested, No normal mood/affect Appearance: impaired insight, impaired recent memory Behavior/Eye Contact/Speech: good eye contact Thoughts/Hallucinations: flight of ideas Skin Exam: normal color SpO2 Interpretation: hypoxic SpO2: 83 Ordered Tests: Medication Summary Discontinued Medications Generic Name Dose Route Start Last Admin Trade Name Freq PRN Reason Stop Dose Admin Acetaminophen 650 mg 06/09/22 07:03 06/09/22 07:06 Acetaminophen 325 Mg Tablet PO 06/09/22 07:04 650 mg STAT STA Administration Acetaminophen Confirm 06/09/22 07:05 Acetaminophen 325 Mg Tablet Administered 06/09/22 07:06 Dose 650 mg .ROUTE .STK-MED ONE Acetaminophen 650 mg 06/09/22 08:35 Acetaminophen 325 Mg Tablet PO 07/09/22 08:34 Q4H PRN PRN PAIN AND/OR FEVER Albuterol Sulfate 2 puff 06/09/22 13:30 Albuterol Common Canister Inhaler IH 07/09/22 13:29 QID PRN PRN wheezes Albuterol/Ipratropium 3 ml 06/09/22 01:26 06/09/22 02:45 Ipratropium/Albuterol Sulfate 3 Ml Ampul.Neb IH 06/09/22 01:27 3 ml STAT ONE Administration Albuterol/Ipratropium Confirm 06/09/22 01:39 Ipratropium/Albuterol Sulfate 3 Ml Ampul.Neb Administered 06/09/22 01:40 Dose 3 ml IH .STK-MED ONE Albuterol/Ipratropium 3 ml 06/09/22 08:35 06/09/22 10:11 Ipratropium/Albuterol Sulfate 3 Ml Ampul.Neb 07/09/22 08:34 3 ml Q4HRT ERNESTO Administration Albuterol/Ipratropium 3 ml 06/09/22 15:00 06/11/22 14:46 Ipratropium/Albuterol Sulfate 3 Ml Ampul.Neb 07/09/22 14:59 3 ml QIDRT ERNESTO Administration Allopurinol 300 mg 06/10/22 10:00 06/11/22 09:39 Allopurinol 300 Mg Tablet PO 07/10/22 09:59 300 mg DAILY ERNESTO Administration Apixaban 5 mg 06/09/22 22:00 06/11/22 09:39 Apixaban 2.5 Mg Tablet PO 07/09/22 21:59 5 mg BID ERNESTO Administration Bupropion HCl 150 mg 06/10/22 10:00 06/11/22 09:40 Bupropion Hcl 150 Mg Tablet Xl PO 07/10/22 09:59 150 mg DAILY ERNESTO Administration Diazepam 5 mg 06/09/22 07:35 06/09/22 07:44 Diazepam 10 Mg/2 Ml Disp.Syringe IV 06/09/22 07:36 5 mg STAT ONE Administration Diazepam Confirm 06/09/22 07:43 Diazepam 10 Mg/2 Ml Disp.Syringe Administered 06/09/22 07:44 Dose 10 mg .ROUTE .STK-MED ONE Diazepam 5 mg 06/09/22 22:00 06/11/22 09:39 Diazepam 5 Mg Tablet PO 07/09/22 21:59 5 mg BID ERNESTO Administration Diphenhydramine HCl 50 mg 06/09/22 01:33 06/09/22 01:47 Diphenhydramine Hcl 50 Mg/Ml Vial IM 06/09/22 01:34 50 mg STAT ONE Administration Diphenhydramine HCl Confirm 06/09/22 01:46 Diphenhydramine Hcl 50 Mg/Ml Vial Administered 06/09/22 01:47 Dose 50 mg .ROUTE .STK-MED ONE Escitalopram Oxalate 20 mg 06/10/22 10:00 06/11/22 09:39 Escitalopram Oxalate 10 Mg Tablet PO 07/10/22 09:59 20 mg DAILY ERNESTO Administration Haloperidol Lactate 5 mg 06/09/22 02:22 06/09/22 07:46 Haloperidol Lactate 5 Mg/Ml Vial IM 06/09/22 02:23 Not Given STAT ONE Levofloxacin/Dextrose 750 mg in 150 mls @ 100 mls/hr 06/09/22 06:50 06/09/22 08:17 Levofloxacin 750mg/150ml D5w IV 06/09/22 08:19 100 mls/hr STAT STA 100 mls/hr Administration Levofloxacin/Dextrose Confirm 06/09/22 08:17 Levofloxacin 750mg/150ml D5w Administered 06/09/22 08:18 Dose 750 mg in 150 mls @ ud IV .STK-MED ONE Levofloxacin/Dextrose 500 mg in 100 mls @ 100 mls/hr 06/10/22 10:00 Levofloxacin 500mg/100ml D5w IV 07/10/22 09:59 Q24H10 ERNESTO Indomethacin 50 mg 06/09/22 15:00 06/11/22 15:13 Indomethacin 25 Mg Capsule PO 07/09/22 14:59 50 mg TID ERNESTO Administration Insulin Human Lispro 0 unit 06/09/22 08:35 Insulin Lispro 1 Unit SQ 07/09/22 08:34 UD PRN HYPERGLYCEMIA Lorazepam 2 mg 06/09/22 01:34 06/09/22 01:47 Lorazepam 2 Mg/1 Ml 2 Mg Vial IM 06/09/22 01:35 2 mg STAT ONE Administration Lorazepam Confirm 06/09/22 01:46 Lorazepam 2 Mg/1 Ml 2 Mg Vial Administered 06/09/22 01:47 Dose 2 mg .ROUTE .STK-MED ONE Lorazepam Confirm 06/09/22 05:10 Lorazepam 2 Mg/1 Ml 2 Mg Vial Administered 06/09/22 05:11 Dose 2 mg .ROUTE .STK-MED ONE Lorazepam 1 mg 06/09/22 05:29 06/09/22 06:40 Lorazepam 2 Mg/1 Ml 2 Mg Vial IV 06/09/22 05:30 1 mg STAT ONE Administration Lorazepam 1 mg 06/09/22 09:10 06/10/22 06:17 Lorazepam 20 Mg/10 Ml Mdv IV 07/09/22 09:09 1 mg Q4H PRN PRN Administration ANXIETY Lorazepam 1 mg 06/10/22 09:23 06/11/22 02:59 Lorazepam 1 Mg Tablet PO 07/10/22 09:22 1 mg Q4H PRN PRN Administration ANXIETY Montelukast Sodium 10 mg 06/09/22 22:00 06/10/22 21:40 Montelukast Sodium 10 Mg Tablet PO 07/09/22 21:59 10 mg HS ERNESTO Administration Non-Formulary Medication 5 mg 06/09/22 22:00 Apixaban [Eliquis 5 Mg Tablet] PO 07/09/22 21:59 BID ERNESTO Nystatin 1 gm 06/09/22 22:00 06/11/22 09:39 Nystatin Cream 30 Gm 30 Gm Tube TOP 07/09/22 21:59 1 gm BID ERNESTO Administration Ondansetron HCl 4 mg 06/09/22 08:35 Ondansetron Hcl 4 Mg/2 Ml Vial IV 07/09/22 08:34 Q6H PRN PRN NAUSEA/VOMITING Oxycodone/Acetaminophen 1 tab 06/09/22 13:30 06/11/22 02:57 Oxycodone / Apap 10/325 Mg 1 Tablet PO 06/14/22 13:29 1 tab Q4H PRN PRN Administration PAIN Pantoprazole Sodium 40 mg 06/09/22 10:00 06/11/22 09:41 Pantoprazole 40 Mg Vial IV 07/09/22 09:59 Not Given Q24H10 ERNESTO Polyethylene Glycol 17 gm 06/09/22 13:30 Polyethylene Glycol 3350 17 Gm Packet PO 07/09/22 13:29 QDP PRN CONSTIPATION Potassium Chloride 20 meq 06/09/22 22:00 06/11/22 09:39 Potassium Chloride Tab 10 Meq Tab PO 07/09/22 21:59 20 meq BID ERNESTO Administration Prochlorperazine 10 mg 06/09/22 13:30 Prochlorperazine Maleate 5 Mg Tablet PO 07/09/22 13:29 Q6HPRN PRN NAUSEA/VOMITING Senna 8.6 mg 06/09/22 13:59 Senna 8.6 Mg Tablet PO 07/09/22 13:58 DAILY PRN PRN CONSTIPATION Lab/Rad Data: Laboratory Result Diagrams 06/09/22 03:55 06/09/22 03:55 Laboratory Results 06/09/22 06/09/22 06/09/22 Range/Units 06:50 06:32 06:02 WBC (4.0-10.5) x10^3/uL RBC (4.1-5.4) x10^6/uL Hgb (12.0-16.0) g/dL Hct (35-47) % MCV (78-100) fL MCH (26-32) pg MCHC (32-36) g/dL RDW (11.5-14.0) % Plt Count (150-450) x10^3/uL MPV (7.5-11.0) fL Gran % (36.0-66.0) % Immature Gran % (Auto) (0.00-0.4) % Nucleat RBC Rel Count (0.00-0.1) % Eos # (Auto) (0-0.5) x10^3/uL Immature Gran # (Auto) (0.00-0.03) x10^3u/L Absolute Lymphs (auto) (1.0-4.6) x10^3/uL Absolute Monos (auto) (0.0-1.3) x10^3/uL Absolute Nucleated RBC (0.00-0.01) x10^3u/L Lymphocytes % (24.0-44.0) % Monocytes % (0.0-12.0) % Eosinophils % (0.00-5.0) % Basophils % (0.0-0.4) % Absolute Granulocytes (1.4-6.9) x10^3/uL Basophils # (0-0.4) x10^3/uL pO2/FiO2 Ratio % VBG pH (7.32-7.42) VBG pCO2 at Pat Temp (42-55) mm/Hg VBG pO2 at Pat Temp (25-40) mm/Hg VBG HCO3 (22-28) meq/L VBG O2 Sat (Cheko) (95-100) VBG Base Excess (-2.0-2.0) VBG Hemoglobin VBG Carboxyhemoglobin (0.0-6.9) % T HGB POC Potassium (3.5-5.1) Sodium (137-145) mmol/L Potassium (3.5-5.1) mmol/L Chloride (98-107) mmol/L Carbon Dioxide (22-30) mmol/L Anion Gap (5-15) MEQ/L BUN (7-17) mg/dL Creatinine (0.52-1.04) mg/dL Estimated GFR ML/MIN Glucose (74-106) mg/dL POC Glucometer (74 to 106) mg/dL Calcium (8.4-10.2) mg/dL Total Bilirubin (0.2-1.3) mg/dL AST (14-36) U/L ALT (0-35) U/L Alkaline Phosphatase (38-126) U/L Troponin I 0.039 H* (0.000-0.034) ng/mL Serum Total Protein (6.3-8.2) g/dL Albumin (3.5-5.0) g/dL Urinalys Dipstick Clnc MAIN LAB Urine Color YELLOW (YELLOW) Urine Appearance CLEAR (CLEAR) Urine pH 7.0 (5-6) Ur Specific [place] 1.015 (1.005-1.025) POC Urine Protein Conf NEGATIVE (Negative) Urine Ketones NEGATIVE (NEGATIVE) Urine Nitrite NEGATIVE (NEGATIVE) Urine Bilirubin SMALL (NEGATIVE) Urine Urobilinogen 2 (0-1) mg/dL Urine Leukocytes TRACE (NEGATIVE) Urine WBC (Auto) 3-5 (0-5) /HPF Urine RBC (Auto) 6-10 (0-2) /HPF U Epithel Cells (Auto) RARE (FEW) /HPF Urine Bacteria (Auto) RARE (NEGATIVE) /HPF Urine RBC LARGE (0-5) Dalton/ul Urine Mucus (Auto) SLIGHT (NEGATIVE) /HPF Ur Culture Indicated? YES Urine Glucose NEGATIVE (NEGATIVE) mg/dL Salicylates (2-20) mg/dL Urine Opiates Level POSITIVE (NEGATIVE) Ur Methadone NEGATIVE (NEGATIVE) Acetaminophen (10-30) ug/ml Urine Barbiturates NEGATIVE (NEGATIVE) Ur Phencyclidine (PCP) NEGATIVE (NEGATIVE) Urine Amphetamine NEGATIVE (NEGATIVE) U Benzodiazepine Level POSITIVE (NEGATIVE) Urine Marijuana (THC) NEGATIVE (NEGATIVE) Ethyl Alcohol (0-10) mg/dL Influenza Type A Ag (NEGATIVE) Influenza Type B Ag (NEGATIVE) RSV (PCR) (Negative) SARS-CoV-2 (PCR) (NEGATIVE) 06/09/22 06/09/22 06/09/22 Range/Units 03:58 03:55 03:55 WBC (4.0-10.5) x10^3/uL RBC (4.1-5.4) x10^6/uL Hgb (12.0-16.0) g/dL Hct (35-47) % MCV (78-100) fL MCH (26-32) pg MCHC (32-36) g/dL RDW (11.5-14.0) % Plt Count (150-450) x10^3/uL MPV (7.5-11.0) fL Gran % (36.0-66.0) % Immature Gran % (Auto) (0.00-0.4) % Nucleat RBC Rel Count (0.00-0.1) % Eos # (Auto) (0-0.5) x10^3/uL Immature Gran # (Auto) (0.00-0.03) x10^3u/L Absolute Lymphs (auto) (1.0-4.6) x10^3/uL Absolute Monos (auto) (0.0-1.3) x10^3/uL Absolute Nucleated RBC (0.00-0.01) x10^3u/L Lymphocytes % (24.0-44.0) % Monocytes % (0.0-12.0) % Eosinophils % (0.00-5.0) % Basophils % (0.0-0.4) % Absolute Granulocytes (1.4-6.9) x10^3/uL Basophils # (0-0.4) x10^3/uL pO2/FiO2 Ratio % VBG pH (7.32-7.42) VBG pCO2 at Pat Temp (42-55) mm/Hg VBG pO2 at Pat Temp (25-40) mm/Hg VBG HCO3 (22-28) meq/L VBG O2 Sat ([place]ko) (95-100) VBG Base Excess (-2.0-2.0) VBG Hemoglobin VBG Carboxyhemoglobin (0.0-6.9) % T HGB POC Potassium (3.5-5.1) Sodium 140 (137-145) mmol/L Potassium 3.8 (3.5-5.1) mmol/L Chloride 98 (98-107) mmol/L Carbon Dioxide 35 H (22-30) mmol/L Anion Gap 10.8 (5-15) MEQ/L BUN 14 (7-17) mg/dL Creatinine 1.02 (0.52-1.04) mg/dL Estimated GFR 59.0 ML/MIN Glucose 139 H (74-106) mg/dL POC Glucometer (74 to 106) mg/dL Calcium 9.5 (8.4-10.2) mg/dL Total Bilirubin 1.10 (0.2-1.3) mg/dL AST 31 (14-36) U/L ALT 15 (0-35) U/L Alkaline Phosphatase 95 (38-126) U/L Troponin I 0.030 (0.000-0.034) ng/mL Serum Total Protein 7.4 (6.3-8.2) g/dL Albumin 3.8 (3.5-5.0) g/dL Urinalys Dipstick Clnc Urine Color (YELLOW) Urine Appearance (CLEAR) Urine pH (5-6) Ur Specific [place] (1.005-1.025) POC Urine Protein Conf (Negative) Urine Ketones (NEGATIVE) Urine Nitrite (NEGATIVE) Urine Bilirubin (NEGATIVE) Urine Urobilinogen (0-1) mg/dL Urine Leukocytes (NEGATIVE) Urine WBC (Auto) (0-5) /HPF Urine RBC (Auto) (0-2) /HPF U Epithel Cells (Auto) (FEW) /HPF Urine Bacteria (Auto) (NEGATIVE) /HPF Urine RBC (0-5) Dalton/ul Urine Mucus (Auto) (NEGATIVE) /HPF Ur Culture Indicated? Urine Glucose (NEGATIVE) mg/dL Salicylates < 1.0 L (2-20) mg/dL Urine Opiates Level (NEGATIVE) Ur Methadone (NEGATIVE) Acetaminophen < 10 L (10-30) ug/ml Urine Barbiturates (NEGATIVE) Ur Phencyclidine (PCP) (NEGATIVE) Urine Amphetamine (NEGATIVE) U Benzodiazepine Level (NEGATIVE) Urine Marijuana (THC) (NEGATIVE) Ethyl Alcohol < 10 (0-10) mg/dL Influenza Type A Ag NEGATIVE (NEGATIVE) Influenza Type B Ag NEGATIVE (NEGATIVE) RSV (PCR) NEGATIVE (Negative) SARS-CoV-2 (PCR) NEGATIVE (NEGATIVE) 06/09/22 06/09/22 06/09/22 Range/Units 03:55 03:26 03:23 WBC 10.1 (4.0-10.5) x10^3/uL RBC 3.64 L (4.1-5.4) x10^6/uL Hgb 10.8 L (12.0-16.0) g/dL Hct 33.6 L (35-47) % MCV 92.3 (78-100) fL MCH 29.7 (26-32) pg MCHC 32.1 (32-36) g/dL RDW 14.5 H (11.5-14.0) % Plt Count 159 (150-450) x10^3/uL MPV 10.4 (7.5-11.0) fL Gran % 79.1 H (36.0-66.0) % Immature Gran % (Auto) 0.4 (0.00-0.4) % Nucleat RBC Rel Count 0.0 (0.00-0.1) % Eos # (Auto) 0.02 (0-0.5) x10^3/uL Immature Gran # (Auto) 0.04 H (0.00-0.03) x10^3u/L Absolute Lymphs (auto) 1.29 (1.0-4.6) x10^3/uL Absolute Monos (auto) 0.70 (0.0-1.3) x10^3/uL Absolute Nucleated RBC 0.00 (0.00-0.01) x10^3u/L Lymphocytes % 12.8 L (24.0-44.0) % Monocytes % 7.0 (0.0-12.0) % Eosinophils % 0.2 (0.00-5.0) % Basophils % 0.5 (0.0-0.4) % Absolute Granulocytes 7.95 H (1.4-6.9) x10^3/uL Basophils # 0.05 (0-0.4) x10^3/uL pO2/FiO2 Ratio 30.0 % VBG pH 7.65 H* (7.32-7.42) VBG pCO2 at Pat Temp 28 L (42-55) mm/Hg VBG pO2 at Pat Temp 83 H (25-40) mm/Hg VBG HCO3 30.8 H* (22-28) meq/L VBG O2 Sat (Cheko) 98.3 (95-100) VBG Base Excess 10.4 H (-2.0-2.0) VBG Hemoglobin 11.4 VBG Carboxyhemoglobin 3.0 (0.0-6.9) % T HGB POC Potassium 5.9 H (3.5-5.1) Sodium (137-145) mmol/L Potassium (3.5-5.1) mmol/L Chloride (98-107) mmol/L Carbon Dioxide (22-30) mmol/L Anion Gap (5-15) MEQ/L BUN (7-17) mg/dL Creatinine (0.52-1.04) mg/dL Estimated GFR ML/MIN Glucose (74-106) mg/dL POC Glucometer 144 H (74 to 106) mg/dL Calcium (8.4-10.2) mg/dL Total Bilirubin (0.2-1.3) mg/dL AST (14-36) U/L ALT (0-35) U/L Alkaline Phosphatase (38-126) U/L Troponin I (0.000-0.034) ng/mL Serum Total Protein (6.3-8.2) g/dL Albumin (3.5-5.0) g/dL Urinalys Dipstick Clnc Urine Color (YELLOW) Urine Appearance (CLEAR) Urine pH (5-6) Ur Specific [place] (1.005-1.025) POC Urine Protein Conf (Negative) Urine Ketones (NEGATIVE) Urine Nitrite (NEGATIVE) Urine Bilirubin (NEGATIVE) Urine Urobilinogen (0-1) mg/dL Urine Leukocytes (NEGATIVE) Urine WBC (Auto) (0-5) /HPF Urine RBC (Auto) (0-2) /HPF U Epithel Cells (Auto) (FEW) /HPF Urine Bacteria (Auto) (NEGATIVE) /HPF Urine RBC (0-5) Dalton/ul Urine Mucus (Auto) (NEGATIVE) /HPF Ur Culture Indicated? Urine Glucose (NEGATIVE) mg/dL Salicylates (2-20) mg/dL Urine Opiates Level (NEGATIVE) Ur Methadone (NEGATIVE) Acetaminophen (10-30) ug/ml Urine Barbiturates (NEGATIVE) Ur Phencyclidine (PCP) (NEGATIVE) Urine Amphetamine (NEGATIVE) U Benzodiazepine Level (NEGATIVE) Urine Marijuana (THC) (NEGATIVE) Ethyl Alcohol (0-10) mg/dL Influenza Type A Ag (NEGATIVE) Influenza Type B Ag (NEGATIVE) RSV (PCR) (Negative) SARS-CoV-2 (PCR) (NEGATIVE) - Progress Progress: improved Progress Note: 06/09/22 06:57 61-year-old is evaluated for altered mental status after recent start of morphine as patient is on hospice. Patient was agitated on presentation, given Benadryl and Ativan with which calmed her down and she is placed on BiPAP. Work-up showed mild anemia but no other acute obvious lab abnormality. Chest x- ray no acute cardiopulmonary findings. While in the ER patient is spiking fever and given a dose of Levaquin. Urinalysis is pending. Patient is postmenopausal and vaginal bleeding is concerning for some kind of malignancy which need fur ther evaluation. Discussed with Dr. Beach, reviewed history, work-up, patient is accepted for admission. Counseled pt/family regarding: lab results, diagnosis, need for follow-up, rad results - Departure Departure Disposition: Observation Clinical Impression: SOB (shortness of breath), Postmenopausal vaginal bleeding, Sepsis Altered mental status Qualifiers: Altered mental status type: delirium Qualified Code(s): R41.0 - Disorientation, unspecified Condition: Stable Critical Care Time: No
[2022-06-09] MEDS ORDERED: Haldol 5 MG IM ONE (02:22)
[2022-06-09 03:33] LABS: VBG BASE EXCESS 10.4 (-2.0-2.0); VBG HCO3- 30.8 meq/L (22-28); VBG HEMOGLOBIN 11.4; VBG O2 SATURATION 98.3 (95-100); VBG POTASSIUM 5.9 (3.5-5.1)
[2022-06-09 03:35] LABS: VBG pH 7.65 (7.32-7.42)
[2022-06-09 03:58] LABS: Absolute Neutrophil Ct (ANC) 7.95 x10^3/uL (1.4-6.9); Basophil (Absolute #) 0.05 x10^3/uL (0-0.4); Eosinophil % 0.2 % (0.00-5.0); Eosinophil (Absolute #) 0.02 x10^3/uL (0-0.5); Hematocrit 33.6 % (35-47); Hemoglobin 10.8 g/dL (12.0-16.0); Lymphocyte (Absolute #) 1.29 x10^3/uL (1.0-4.6); Lymphocytes % 12.8 % (24.0-44.0); Mean Cell Volume 92.3 fL (78-100); Mean Corpuscular Hemoglobin 29.7 pg (26-32); Mean Corpuscular Hgb Concent. 32.1 g/dL (32-36); Mean Platelet Volume 10.4 fL (7.5-11.0); Neutrophil % 79.1 % (36.0-66.0); Platelet Count 159 x10^3/uL (150-450); Red Blood Count 3.64 x10^6/uL (4.1-5.4); Red Cell Distribution Width 14.5 % (11.5-14.0); White Blood Count 10.1 x10^3/uL (4.0-10.5)
[2022-06-09 04:12] LABS: ACETAMINOPHEN < 10 ug/ml (10-30); ALBUMIN 3.8 g/dL (3.5-5.0); ALKALINE PHOSPHATASE 95 U/L (38-126); ANION GAP 10.8 MEQ/L (5-15); BLOOD UREA NITROGEN 14 mg/dL (7-17); CHLORIDE 98 mmol/L (98-107); Calcium 9.5 mg/dL (8.4-10.2); Carbon Dioxide 35 mmol/L (22-30); Creatinine 1 1.02 mg/dL (0.52-1.04); ETHYL ALCOHOL < 10 mg/dL (0-10); Glucose 139 mg/dL (74-106); Potassium 3.8 mmol/L (3.5-5.1); SALICYLATE < 1.0 mg/dL (2-20); SGOT/AST 31 U/L (14-36); SGPT/ALT 15 U/L (0-35); SODIUM 140 mmol/L (137-145); Total Protein 7.4 g/dL (6.3-8.2)
[2022-06-09 04:36] LABS: INFLUENZA A NEGATIVE (NEGATIVE); INFLUENZA B NEGATIVE (NEGATIVE); RESPIRATORY SYNCTIAL VIRUS NEGATIVE (Negative); SARS-CoV-2 Xpert Express NEGATIVE (NEGATIVE)
[2022-06-09] MEDS ORDERED: Ativan 2 MG/1 ML VIAL IV ONE (05:29)
[2022-06-09] MEDS ORDERED: LEVOFLOXACIN 750MG/150ML D5W 750 MG/150 ML BAG IV STA (06:50)
[2022-06-09 06:53] LABS: Bacteria RARE /HPF (NEGATIVE); Epithelial Cells RARE /HPF (FEW); Mucus SLIGHT /HPF (NEGATIVE)
[2022-06-09] MEDS ORDERED: TYLENOL 325 MG PO STA (07:03)
[2022-06-09] MEDS ORDERED: TYLENOL 325 MG ONE (07:05)
[2022-06-09 07:09] LABS: Appearance CLEAR (CLEAR); Bilirubin SMALL (NEGATIVE); Glucose NEGATIVE (NEGATIVE); Ketones NEGATIVE (NEGATIVE)
[2022-06-09 07:10] LABS: Dipstick done @ ? MAIN LAB; Nitrite NEGATIVE (NEGATIVE); Protein,Urine Dip NEGATIVE (Negative); RBC LARGE Ery/ul (0-5); Specific Gravity 1.015 (1.005-1.025); Urine Cultured Indicated? YES; Urobilinogen 2 mg/dL (0-1)
[2022-06-09 07:28] LABS: Amphetamine,Urine NEGATIVE (NEGATIVE); Barbiturate,Urine NEGATIVE (NEGATIVE); Benzodiazepine,Urine POSITIVE (NEGATIVE); Methadone,Urine NEGATIVE (NEGATIVE); Opiate,Urine POSITIVE (NEGATIVE); PCP,Urine NEGATIVE (NEGATIVE); THC,Urine NEGATIVE (NEGATIVE)
[2022-06-09] MEDS ORDERED: VALIUM 10 MG/2 ML SYRINGE IV ONE (07:35)
[2022-06-09] MEDS ORDERED: VALIUM 10 MG/2 ML SYRINGE ONE (07:43)
[2022-06-09] MEDS ORDERED: LEVOFLOXACIN 750MG/150ML D5W 750 MG/150 ML BAG IV ONE (08:17)
[2022-06-09] MEDS ORDERED: HUMALOG SQ PRN (08:35)
[2022-06-09] MEDS ORDERED: Zofran 4 MG/2 ML VIAL IV PRN (08:35)
[2022-06-09] MEDS ORDERED: TYLENOL 325 MG PO PRN (08:35)
[2022-06-09] MEDS ORDERED: Ativan 2 MG/1 ML VIAL IV PRN (08:35)
--- NOTE | 2022-06-09 09:06 | XRAY ---
Indication: Short of breath. Comparison: September 19, 2021. Portable apical lordotic chest again demonstrates mediastinal and bilateral hilar calcified granulomas. No focal infiltrate, consolidation, or large effusion. Heart not enlarged for AP portable technique. Bony thorax intact again with mild osteopenia and degenerative changes. Impression: Nonacute chest with chronic features. Comment: Preliminary interpretation made by [facility]. No critical discrepancy.
[2022-06-09] MEDS: Ativan 20 MG/10 ML MDV IV PRN ×4 (09:43→23:38)
[2022-06-09] MEDS: DUONEB 0.5-3 MG/3 ml Neb IH SCH ×4 (09:58→18:43)
[2022-06-09] MEDS ORDERED: DUONEB 0.5-3 MG/3 ml Neb IH PRN (13:30)
[2022-06-09] MEDS ORDERED: VENTOLIN COMMON CANISTER IH PRN (13:30)
[2022-06-09] MEDS ORDERED: SENNOSIDES 8.6 MG PO PRN (13:30)
[2022-06-09] MEDS ORDERED: Miralax Powder 17GM PACKET PO PRN (13:30)
[2022-06-09] MEDS ORDERED: Compazine 5 MG PO PRN (13:30)
[2022-06-09] MEDS ORDERED: SENOKOT 8.6 MG PO PRN (13:59)
--- NOTE | 2022-06-09 15:07 | PCM.HP ---
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 Labs were good (aside from slight anemia and slight hyperglycemia) and CT head nonacute. Pt was agitated in ER, but has since calmed down. Family noticed pt acting oddly after she had started on morphine (2d ago). Pt also started fentanyl patches relatively recently. She has had recent vaginal bleeding of unknown etiology, which has slowed since admission. She is currently 1:1 on med surg. She is not agitated; she is talkative, however. She is oriented x 3 but still confused, saying things that just don't quite make sense. - Review of Systems All Other Systems: Unable due to condition Medications & Allergies Home Medications: Home Medication List Albuterol Sulfate [Ventolin Hfa] 2 puffs IH QID PRN 07/27/21 [History Confirmed 06/09/22] Allopurinol 300 mg [Zyloprim 300 mg] 300 mg PO DAILY 07/27/21 [History Confirmed 06/09/22] Montelukast Sodium 10 mg [Singulair 10 MG] 10 mg PO HS 07/27/21 [History Confirmed 06/09/22] hydrOXYzine HCL [Hydroxyzine HCl] 50 mg PO BID 07/27/21 [History Confirmed 06/09/22] Albuterol/Ipratropium 3ml Neb* [DUONEB 0.5-3 MG/3 ml Neb] 3 ml IH QID PRN 06/09/22 [History Confirmed 06/09/22] Apixaban [Eliquis 5 mg Tablet] 5 mg PO BID 06/09/22 [History Confirmed 06/09/22] Bupropion HCl Xl 150 mg [Wellbutrin XL 150 MG] 300 mg PO DAILY 06/09/22 [History Confirmed 06/09/22] Diazepam [Valium] 10 mg PO BID 06/09/22 [History Confirmed 06/09/22] Escitalopram Oxalate [Lexapro] 20 mg PO DAILY 06/09/22 [History Confirmed 06/09/22] Furosemide 40 mg [Lasix 40 MG] 40 mg PO DAILY 06/09/22 [History Confirmed 06/09/22] Ibuprofen [IBUPROFEN 400 MG TABLET] 800 mg PO Q6HPRN PRN 06/09/22 [History Confirmed 06/09/22] Indomethacin 25 mg [Indocin 25 MG] 50 mg PO TID 06/09/22 [History Confirmed 06/09/22] Lorazepam 1 mg [Ativan 1 MG] 1 mg PO Q4H PRN 06/09/22 [History Confirmed 06/09/22] Morphine Sulfate [Morphine Sulfate ER] 60 mg PO TID 06/09/22 [History Confirmed 06/09/22] Oxycodone HCl/Acetaminophen [Endocet 10-325 mg Tablet] 1 tab PO Q4H PRN PRN 06/09/22 [History Confirmed 06/09/22] Polyethylene Glycol 3350 17 gm [Miralax Powder 17GM PACKET] 17 gm PO QDP PRN 06/09/22 [History Confirmed 06/09/22] Potassium Chloride 20 meq PO BID 06/09/22 [History Confirmed 06/09/22] Prochlorperazine Maleate 5 mg* [Compazine 5 MG] 10 mg PO Q6HPRN PRN 06/09/22 [History Confirmed 06/09/22] Sennosides [Senna] 1 cap PO DAILY PRN PRN 06/09/22 [History Confirmed 06/09/22] Allergies/Adverse Reactions: Allergies Allergy/AdvReac Type Severity Reaction Status Date / Time adhesive tape Allergy Verified 06/09/22 01:40 Penicillins Allergy Hives Verified 06/09/22 01:40 - Past Medical History Past Medical History: Yes Neurological History: No Pertinent History ENT History: No Pertinent History Cardiac History: Congestive Heart Failure, Hypertension Respiratory History: CHF, COPD Endocrine Medical History: No Pertinent History Musculoskelatal History: No Pertinent History GI Medical History: No Pertinent History History: Other Pyscho-Social History: Anxiety, Depression Reproductive Disorders: No Pertinent History Comment: KIDNEY STONES - Female History Are you now?: No - Past Surgical History Past Surgical History: Yes Neuro Surgical History: No Pertinent History Cardiac History: No Pertinent History Respiratory Surgery: No Pertinent History GI Surgical History: Cholecystectomy Genitourinary Surgical Hx: Kidney Surgery Musculskeletal Surgical Hx: No Pertinent History Female Surgical History: No Pertinent History Other Surgical History: Cysto with stent placement. - Social History Smoking Status: Former smoker How long have you smoked: 40yrs Exposure to second hand smoke: No Alcohol: None Drug Use: none - Physical Exam Vital Signs: Vital Signs - 24 hr Temp Pulse Resp BP Pulse Ox 06/09/22 14:39 69 18 92 L 06/09/22 11:46 98.0 F 84 18 149/66 93 L 06/09/22 10:15 75 20 91 L 06/09/22 08:53 97.9 F 84 18 147/68 95 06/09/22 08:50 97.9 F 84 18 147/68 95 06/09/22 08:33 97.9 F 84 18 147/68 95 06/09/22 07:30 100.9 F 73 18 116/66 98 06/09/22 06:57 83 L 06/09/22 06:32 100.6 F 80 20 131/59 95 06/09/22 05:19 89 20 86 L 06/09/22 04:23 89 18 97 06/09/22 03:18 97 H 18 196/96 100 06/09/22 02:48 94 H 96 06/09/22 02:45 96 H 33 H 100 06/09/22 01:07 114 H 20 83 L General Appearance: no apparent distress, alert, anxiety Neurologic Exam: oriented x 3, cooperative, confusion Eye Exam: eyes nml inspection Ears, Nose, Throat Exam: moist mucous membranes Neck Exam: normal inspection Respiratory Exam: normal breath sounds, lungs clear, No accessory muscle use, No crackles/rales, No rhonchi, No wheezing Cardiovascular Exam: regular rate/rhythm, normal heart sounds, No murmur Gastrointestinal/Abdomen Exam: soft, normal bowel sounds, No tenderness, No distention, No mass, No guarding, No rebound Back Exam: normal inspection, No rash Extremity Exam: normal inspection, No pedal edema, No swelling Skin Exam: normal color, warm, dry, No rash Results - Labs Lab/Micro Results: Lab Results-Last 24 Hours 06/09/22 06/09/22 06/09/22 Range/Units 03:23 03:26 03:55 WBC 10.1 (4.0-10.5) x10^3/uL RBC 3.64 L (4.1-5.4) x10^6/uL Hgb 10.8 L (12.0-16.0) g/dL Hct 33.6 L (35-47) % MCV 92.3 (78-100) fL MCH 29.7 (26-32) pg MCHC 32.1 (32-36) g/dL RDW 14.5 H (11.5-14.0) % Plt Count 159 (150-450) x10^3/uL MPV 10.4 (7.5-11.0) fL Gran % 79.1 H (36.0-66.0) % Immature Gran % (Auto) 0.4 (0.00-0.4) % Nucleat RBC Rel Count 0.0 (0.00-0.1) % Eos # (Auto) 0.02 (0-0.5) x10^3/uL Immature Gran # (Auto) 0.04 H (0.00-0.03) x10^3u/L Absolute Lymphs (auto) 1.29 (1.0-4.6) x10^3/uL Absolute Monos (auto) 0.70 (0.0-1.3) x10^3/uL Absolute Nucleated RBC 0.00 (0.00-0.01) x10^3u/L Lymphocytes % 12.8 L (24.0-44.0) % Monocytes % 7.0 (0.0-12.0) % Eosinophils % 0.2 (0.00-5.0) % Basophils % 0.5 (0.0-0.4) % Absolute Granulocytes 7.95 H (1.4-6.9) x10^3/uL Basophils # 0.05 (0-0.4) x10^3/uL pO2/FiO2 Ratio 30.0 % VBG pH 7.65 H* (7.32-7.42) VBG pCO2 at Pat Temp 28 L (42-55) mm/Hg VBG pO2 at Pat Temp 83 H (25-40) mm/Hg VBG HCO3 30.8 H* (22-28) meq/L VBG O2 Sat ([place]) 98.3 (95-100) VBG Base Excess 10.4 H (-2.0-2.0) VBG Hemoglobin 11.4 VBG Carboxyhemoglobin 3.0 (0.0-6.9) % T HGB POC Potassium 5.9 H (3.5-5.1) Sodium (137-145) mmol/L Potassium (3.5-5.1) mmol/L Chloride (98-107) mmol/L Carbon Dioxide (22-30) mmol/L Anion Gap (5-15) MEQ/L BUN (7-17) mg/dL Creatinine (0.52-1.04) mg/dL Estimated GFR ML/MIN Glucose (74-106) mg/dL POC Glucometer 144 H (74 to 106) mg/dL Calcium (8.4-10.2) mg/dL Total Bilirubin (0.2-1.3) mg/dL AST (14-36) U/L ALT (0-35) U/L Alkaline Phosphatase (38-126) U/L Troponin I (0.000-0.034) ng/mL Serum Total Protein (6.3-8.2) g/dL Albumin (3.5-5.0) g/dL Urinalys Dipstick Clnc Urine Color (YELLOW) Urine Appearance (CLEAR) Urine pH (5-6) Ur Specific [place] (1.005-1.025) POC Urine Protein Conf (Negative) Urine Ketones (NEGATIVE) Urine Nitrite (NEGATIVE) Urine Bilirubin (NEGATIVE) Urine Urobilinogen (0-1) mg/dL Urine Leukocytes (NEGATIVE) Urine WBC (Auto) (0-5) /HPF Urine RBC (Auto) (0-2) /HPF U Epithel Cells (Auto) (FEW) /HPF Urine Bacteria (Auto) (NEGATIVE) /HPF Urine RBC (0-5) Dalton/ul Urine Mucus (Auto) (NEGATIVE) /HPF Ur Culture Indicated? Urine Glucose (NEGATIVE) mg/dL Salicylates (2-20) mg/dL Urine Opiates Level (NEGATIVE) Ur Methadone (NEGATIVE) Acetaminophen (10-30) ug/ml Urine Barbiturates (NEGATIVE) Ur Phencyclidine (PCP) (NEGATIVE) Urine Amphetamine (NEGATIVE) U Benzodiazepine Level (NEGATIVE) Urine Marijuana (THC) (NEGATIVE) Ethyl Alcohol (0-10) mg/dL Influenza Type A Ag (NEGATIVE) Influenza Type B Ag (NEGATIVE) RSV (PCR) (Negative) SARS-CoV-2 (PCR) (NEGATIVE) 06/09/22 06/09/22 06/09/22 Range/Units 03:55 03:55 03:58 WBC (4.0-10.5) x10^3/uL RBC (4.1-5.4) x10^6/uL Hgb (12.0-16.0) g/dL Hct (35-47) % MCV (78-100) fL MCH (26-32) pg MCHC (32-36) g/dL RDW (11.5-14.0) % Plt Count (150-450) x10^3/uL MPV (7.5-11.0) fL Gran % (36.0-66.0) % Immature Gran % (Auto) (0.00-0.4) % Nucleat RBC Rel Count (0.00-0.1) % Eos # (Auto) (0-0.5) x10^3/uL Immature Gran # (Auto) (0.00-0.03) x10^3u/L Absolute Lymphs (auto) (1.0-4.6) x10^3/uL Absolute Monos (auto) (0.0-1.3) x10^3/uL Absolute Nucleated RBC (0.00-0.01) x10^3u/L Lymphocytes % (24.0-44.0) % Monocytes % (0.0-12.0) % Eosinophils % (0.00-5.0) % Basophils % (0.0-0.4) % Absolute Granulocytes (1.4-6.9) x10^3/uL Basophils # (0-0.4) x10^3/uL pO2/FiO2 Ratio % VBG pH (7.32-7.42) VBG pCO2 at Pat Temp (42-55) mm/Hg VBG pO2 at Pat Temp (25-40) mm/Hg VBG HCO3 (22-28) meq/L VBG O2 Sat ([place]) (95-100) VBG Base Excess (-2.0-2.0) VBG Hemoglobin VBG Carboxyhemoglobin (0.0-6.9) % T HGB POC Potassium (3.5-5.1) Sodium 140 (137-145) mmol/L Potassium 3.8 (3.5-5.1) mmol/L Chloride 98 (98-107) mmol/L Carbon Dioxide 35 H (22-30) mmol/L Anion Gap 10.8 (5-15) MEQ/L BUN 14 (7-17) mg/dL Creatinine 1.02 (0.52-1.04) mg/dL Estimated GFR 59.0 ML/MIN Glucose 139 H (74-106) mg/dL POC Glucometer (74 to 106) mg/dL Calcium 9.5 (8.4-10.2) mg/dL Total Bilirubin 1.10 (0.2-1.3) mg/dL AST 31 (14-36) U/L ALT 15 (0-35) U/L Alkaline Phosphatase 95 (38-126) U/L Troponin I 0.030 (0.000-0.034) ng/mL Serum Total Protein 7.4 (6.3-8.2) g/dL Albumin 3.8 (3.5-5.0) g/dL Urinalys Dipstick Clnc Urine Color (YELLOW) Urine Appearance (CLEAR) Urine pH (5-6) Ur Specific [place] (1.005-1.025) POC Urine Protein Conf (Negative) Urine Ketones (NEGATIVE) Urine Nitrite (NEGATIVE) Urine Bilirubin (NEGATIVE) Urine Urobilinogen (0-1) mg/dL Urine Leukocytes (NEGATIVE) Urine WBC (Auto) (0-5) /HPF Urine RBC (Auto) (0-2) /HPF U Epithel Cells (Auto) (FEW) /HPF Urine Bacteria (Auto) (NEGATIVE) /HPF Urine RBC (0-5) Dalton/ul Urine Mucus (Auto) (NEGATIVE) /HPF Ur Culture Indicated? Urine Glucose (NEGATIVE) mg/dL Salicylates < 1.0 L (2-20) mg/dL Urine Opiates Level (NEGATIVE) Ur Methadone (NEGATIVE) Acetaminophen < 10 L (10-30) ug/ml Urine Barbiturates (NEGATIVE) Ur Phencyclidine (PCP) (NEGATIVE) Urine Amphetamine (NEGATIVE) U Benzodiazepine Level (NEGATIVE) Urine Marijuana (THC) (NEGATIVE) Ethyl Alcohol < 10 (0-10) mg/dL Influenza Type A Ag NEGATIVE (NEGATIVE) Influenza Type B Ag NEGATIVE (NEGATIVE) RSV (PCR) NEGATIVE (Negative) SARS-CoV-2 (PCR) NEGATIVE (NEGATIVE) 06/09/22 06/09/22 06/09/22 Range/Units 06:02 06:32 06:50 WBC (4.0-10.5) x10^3/uL RBC (4.1-5.4) x10^6/uL Hgb (12.0-16.0) g/dL Hct (35-47) % MCV (78-100) fL MCH (26-32) pg MCHC (32-36) g/dL RDW (11.5-14.0) % Plt Count (150-450) x10^3/uL MPV (7.5-11.0) fL Gran % (36.0-66.0) % Immature Gran % (Auto) (0.00-0.4) % Nucleat RBC Rel Count (0.00-0.1) % Eos # (Auto) (0-0.5) x10^3/uL Immature Gran # (Auto) (0.00-0.03) x10^3u/L Absolute Lymphs (auto) (1.0-4.6) x10^3/uL Absolute Monos (auto) (0.0-1.3) x10^3/uL Absolute Nucleated RBC (0.00-0.01) x10^3u/L Lymphocytes % (24.0-44.0) % Monocytes % (0.0-12.0) % Eosinophils % (0.00-5.0) % Basophils % (0.0-0.4) % Absolute Granulocytes (1.4-6.9) x10^3/uL Basophils # (0-0.4) x10^3/uL pO2/FiO2 Ratio % VBG pH (7.32-7.42) VBG pCO2 at Pat Temp (42-55) mm/Hg VBG pO2 at Pat Temp (25-40) mm/Hg VBG HCO3 (22-28) meq/L VBG O2 Sat ([place]) (95-100) VBG Base Excess (-2.0-2.0) VBG Hemoglobin VBG Carboxyhemoglobin (0.0-6.9) % T HGB POC Potassium (3.5-5.1) Sodium (137-145) mmol/L Potassium (3.5-5.1) mmol/L Chloride (98-107) mmol/L Carbon Dioxide (22-30) mmol/L Anion Gap (5-15) MEQ/L BUN (7-17) mg/dL Creatinine (0.52-1.04) mg/dL Estimated GFR ML/MIN Glucose (74-106) mg/dL POC Glucometer (74 to 106) mg/dL Calcium (8.4-10.2) mg/dL Total Bilirubin (0.2-1.3) mg/dL AST (14-36) U/L ALT (0-35) U/L Alkaline Phosphatase (38-126) U/L Troponin I 0.039 H* (0.000-0.034) ng/mL Serum Total Protein (6.3-8.2) g/dL Albumin (3.5-5.0) g/dL Urinalys Dipstick Clnc MAIN LAB Urine Color YELLOW (YELLOW) Urine Appearance CLEAR (CLEAR) Urine pH 7.0 (5-6) Ur Specific [place] 1.015 (1.005-1.025) POC Urine Protein Conf NEGATIVE (Negative) Urine Ketones NEGATIVE (NEGATIVE) Urine Nitrite NEGATIVE (NEGATIVE) Urine Bilirubin SMALL (NEGATIVE) Urine Urobilinogen 2 (0-1) mg/dL Urine Leukocytes TRACE (NEGATIVE) Urine WBC (Auto) 3-5 (0-5) /HPF Urine RBC (Auto) 6-10 (0-2) /HPF U Epithel Cells (Auto) RARE (FEW) /HPF Urine Bacteria (Auto) RARE (NEGATIVE) /HPF Urine RBC LARGE (0-5) Dalton/ul Urine Mucus (Auto) SLIGHT (NEGATIVE) /HPF Ur Culture Indicated? YES Urine Glucose NEGATIVE (NEGATIVE) mg/dL Salicylates (2-20) mg/dL Urine Opiates Level POSITIVE (NEGATIVE) Ur Methadone NEGATIVE (NEGATIVE) Acetaminophen (10-30) ug/ml Urine Barbiturates NEGATIVE (NEGATIVE) Ur Phencyclidine (PCP) NEGATIVE (NEGATIVE) Urine Amphetamine NEGATIVE (NEGATIVE) U Benzodiazepine Level POSITIVE (NEGATIVE) Urine Marijuana (THC) NEGATIVE (NEGATIVE) Ethyl Alcohol (0-10) mg/dL Influenza Type A Ag (NEGATIVE) Influenza Type B Ag (NEGATIVE) RSV (PCR) (Negative) SARS-CoV-2 (PCR) (NEGATIVE) 06/09/22 06/09/22 06/09/22 Range/Units 10:00 11:33 14:00 WBC (4.0-10.5) x10^3/uL RBC (4.1-5.4) x10^6/uL Hgb (12.0-16.0) g/dL Hct (35-47) % MCV (78-100) fL MCH (26-32) pg MCHC (32-36) g/dL RDW (11.5-14.0) % Plt Count (150-450) x10^3/uL MPV (7.5-11.0) fL Gran % (36.0-66.0) % Immature Gran % (Auto) (0.00-0.4) % Nucleat RBC Rel Count (0.00-0.1) % Eos # (Auto) (0-0.5) x10^3/uL Immature Gran # (Auto) (0.00-0.03) x10^3u/L Absolute Lymphs (auto) (1.0-4.6) x10^3/uL Absolute Monos (auto) (0.0-1.3) x10^3/uL Absolute Nucleated RBC (0.00-0.01) x10^3u/L Lymphocytes % (24.0-44.0) % Monocytes % (0.0-12.0) % Eosinophils % (0.00-5.0) % Basophils % (0.0-0.4) % Absolute Granulocytes (1.4-6.9) x10^3/uL Basophils # (0-0.4) x10^3/uL pO2/FiO2 Ratio % VBG pH (7.32-7.42) VBG pCO2 at Pat Temp (42-55) mm/Hg VBG pO2 at Pat Temp (25-40) mm/Hg VBG HCO3 (22-28) meq/L VBG O2 Sat ([place]) (95-100) VBG Base Excess (-2.0-2.0) VBG Hemoglobin VBG Carboxyhemoglobin (0.0-6.9) % T HGB POC Potassium (3.5-5.1) Sodium (137-145) mmol/L Potassium (3.5-5.1) mmol/L Chloride (98-107) mmol/L Carbon Dioxide (22-30) mmol/L Anion Gap (5-15) MEQ/L BUN (7-17) mg/dL Creatinine (0.52-1.04) mg/dL Estimated GFR ML/MIN Glucose (74-106) mg/dL POC Glucometer 118 H (74 to 106) mg/dL Calcium (8.4-10.2) mg/dL Total Bilirubin (0.2-1.3) mg/dL AST (14-36) U/L ALT (0-35) U/L Alkaline Phosphatase (38-126) U/L Troponin I 0.035 H 0.024 (0.000-0.034) ng/mL Serum Total Protein (6.3-8.2) g/dL Albumin (3.5-5.0) g/dL Urinalys Dipstick Clnc Urine Color (YELLOW) Urine Appearance (CLEAR) Urine pH (5-6) Ur Specific [place] (1.005-1.025) POC Urine Protein Conf (Negative) Urine Ketones (NEGATIVE) Urine Nitrite (NEGATIVE) Urine Bilirubin (NEGATIVE) Urine Urobilinogen (0-1) mg/dL Urine Leukocytes (NEGATIVE) Urine WBC (Auto) (0-5) /HPF Urine RBC (Auto) (0-2) /HPF U Epithel Cells (Auto) (FEW) /HPF Urine Bacteria (Auto) (NEGATIVE) /HPF Urine RBC (0-5) Dalton/ul Urine Mucus (Auto) (NEGATIVE) /HPF Ur Culture Indicated? Urine Glucose (NEGATIVE) mg/dL Salicylates (2-20) mg/dL Urine Opiates Level (NEGATIVE) Ur Methadone (NEGATIVE) Acetaminophen (10-30) ug/ml Urine Barbiturates (NEGATIVE) Ur Phencyclidine (PCP) (NEGATIVE) Urine Amphetamine (NEGATIVE) U Benzodiazepine Level (NEGATIVE) Urine Marijuana (THC) (NEGATIVE) Ethyl Alcohol (0-10) mg/dL Influenza Type A Ag (NEGATIVE) Influenza Type B Ag (NEGATIVE) RSV (PCR) (Negative) SARS-CoV-2 (PCR) (NEGATIVE) Accuchecks Date 06/09/22 Date 06/09/22 Time 11:45 Time 03:24 - Radiology Impressions Radiology Exams & Impressions: Radiology Procedures Category Date Time Status CHEST 1 VIEW (PORTABLE) Stat Exams 06/09/22 01:26 Completed - Other Procedures and Tests Respiratory Therapy 06/09/22 09:58 Respiratory Therapy Assessment DAILY 06/09/22 09:59 BiPap/CPAP ROUTINE Oxygen Nasal Cannula 4 lpm Assessment/Plan (1) Altered mental status Current Visit: Yes Status: Acute Qualifiers: Altered mental status type: delirium Qualified Code(s): R41.0 - Disorientation, unspecified Assessment & Plan: I think likely to be related to recent medication changes. I have held her fentanyl and morphine; ok percocet po prn. Decreased her scheduled BZD but ok to have prn ativan. Holding the hydroxyzine. Code(s): R41.82 - ALTERED MENTAL STATUS, UNSPECIFIED (2) End stage COPD Current Visit: Yes Status: Chronic Assessment & Plan: on hospice. Code(s): J44.9 - CHRONIC OBSTRUCTIVE PULMONARY DISEASE, UNSPECIFIED (3) CHF (congestive heart failure), NYHA class IV Current Visit: No Status: Chronic Qualifiers: Assessment & Plan: per chart; unsure when was last echo and the results. Code(s): I50.9 - HEART FAILURE, UNSPECIFIED
[2022-06-09] MEDS: Indocin 25 MG PO SCH ×2 (16:25→21:22)
[2022-06-09] MEDS: PROTONIX 40 MG IV IV SCH (17:10)
[2022-06-09] MEDS: OXYCODONE-ACETAMINOPHEN 10-325 PO PRN (17:36)
[2022-06-09] MEDS: Klor Con PO SCH (21:19)
[2022-06-09] MEDS: ELIQUIS 2.5 MG TABLET PO SCH (21:20)
[2022-06-09] MEDS: Singulair 10 MG PO SCH (21:20)
[2022-06-09] MEDS: Valium 5 MG PO SCH (21:20)
[2022-06-09] MEDS: NYSTOP 30 GM CREAM TOP SCH (21:34)
[2022-06-09] MEDS ORDERED: NON-FORMULARY ITEM (Potassium Chloride [Potassium Chloride] 20 MEQ Tab.Er.Prt) PO SCH (22:00)
[2022-06-09] MEDS ORDERED: NON-FORMULARY ITEM (Apixaban*** [Eliquis 5 Mg Tablet***] 5 MG Tablet) PO SCH (22:00)
[2022-06-09] MEDS ORDERED: NON-FORMULARY ITEM (Diazepam [Valium] 10 MG Tablet) PO SCH (22:00)
[2022-06-10] MEDS: Ativan 20 MG/10 ML MDV IV PRN (06:17)
[2022-06-10] MEDS: DUONEB 0.5-3 MG/3 ml Neb IH SCH ×4 (06:39→19:16)
[2022-06-10 06:45] LABS: Absolute Neutrophil Ct (ANC) 4.69 x10^3/uL (1.4-6.9); Basophil (Absolute #) 0.03 x10^3/uL (0-0.4); Eosinophil % 1.8 % (0.00-5.0); Eosinophil (Absolute #) 0.13 x10^3/uL (0-0.5); Hematocrit 29.8 % (35-47); Hemoglobin 9.5 g/dL (12.0-16.0); Lymphocyte (Absolute #) 1.69 x10^3/uL (1.0-4.6); Lymphocytes % 23.6 % (24.0-44.0); Mean Cell Volume 91.7 fL (78-100); Mean Corpuscular Hemoglobin 29.2 pg (26-32); Mean Corpuscular Hgb Concent. 31.9 g/dL (32-36); Mean Platelet Volume 10.4 fL (7.5-11.0); Monocyte (Absolute #) 0.59 x10^3/uL (0.0-1.3); Monocytes % 8.3 % (0.0-12.0); Neutrophil % 65.6 % (36.0-66.0); Platelet Count 148 x10^3/uL (150-450); Red Blood Count 3.25 x10^6/uL (4.1-5.4); Red Cell Distribution Width 14.4 % (11.5-14.0); White Blood Count 7.2 x10^3/uL (4.0-10.5)
--- NOTE | 2022-06-10 08:35 | PCM.NOTE ---
Date and Time: 06/10/22829 Subjective Assessment: Pt is much more alert and oriented today. Conversant; can tell me her previous meds/dosages. Thinks today is Jun 09, 2022. Oriented to place. She is c/o a little back pain but "it's not bad." She does have trouble naming all her grandchildren. Yesterday she stood up, didn't want the PRESCHOOL PROGRAM DIRECTOR to help, and almost fell. Pt did not sleep yesterday or last night. Pt becomes tearful at end of interview, would like to go home. Yesterday she said she did not want to live with one daughter (Haydee), but today there was no mention of that to me. - Review of Systems Abdominal/Gastrointestinal: No Vomiting Musculoskeletal: Back Pain Objective Exam General Appearance: no apparent distress, obese Neurologic Exam: oriented x 3, cooperative Skin Exam: normal color, warm, dry, No rash Wound Assessment: Skin/Wound Assessment Wound/Incision Assessment Start: 06/10/22 01:00 Text: Status: Active Freq: Protocol: Document 06/10/22 01:00 HORACE (Rec: 06/10/22 01:09 HORACE [id number]) Wound/Incision Assessment Left Posterior Wound Assessment Shift Assessment Drainage Odor Mild Odor Wound Bed Greatest Portion Red (Granulation) Surrounding Tissue [place] Comment open area under left breast Wound Photo Photo Taken No Respiratory Exam: normal breath sounds, lungs clear, No crackles/rales, No rhonchi, No wheezing Cardiovascular Exam: regular rate/rhythm, normal heart sounds, No murmur Gastrointestinal/Abdomen Exam: soft, normal bowel sounds, No tenderness, No distention, No mass, No guarding, No rebound Extremity Exam: No pedal edema, No swelling Back Exam: normal inspection, No rash OBJECTIVE DATA Vital Signs: Vital Signs - 24 hr Temp Pulse Resp BP Pulse Ox 06/10/22 06:55 98.0 F 83 16 181/88 93 L 06/10/22 06:41 72 18 93 L 06/10/22 03:57 97.3 F 62 18 134/60 91 L 06/10/22 00:00 96.4 F 63 20 136/71 93 L 06/09/22 19:09 98.2 F 83 145/66 91 L 06/09/22 18:45 72 18 90 L 06/09/22 16:00 97.5 F 73 16 143/66 94 L 06/09/22 14:39 69 18 92 L 06/09/22 11:46 98.0 F 84 18 149/66 93 L 06/09/22 10:15 75 20 91 L 06/09/22 08:53 97.9 F 84 18 147/68 95 06/09/22 08:50 97.9 F 84 18 147/68 95 06/09/22 08:33 97.9 F 84 18 147/68 95 Pain Assessment - Last Documented Pain Intensity 0 Pain Scale Used 0-10 Pain Scale Intake and Output: Intake & Output 06/07/22 06/08/22 06/09/22 06/10/22 11:59 11:59 11:59 11:59 Intake Total 380 680 Output Total 1100 Balance 380 -420 Weight 156.6 kg 157 kg Lab Results: Lab Results-Last 24 Hours 06/09/22 06/09/22 06/09/22 Range/Units 10:00 11:33 14:00 WBC (4.0-10.5) x10^3/uL RBC (4.1-5.4) x10^6/uL Hgb (12.0-16.0) g/dL Hct (35-47) % MCV (78-100) fL MCH (26-32) pg MCHC (32-36) g/dL RDW (11.5-14.0) % Plt Count (150-450) x10^3/uL MPV (7.5-11.0) fL Gran % (36.0-66.0) % Immature Gran % (Auto) (0.00-0.4) % Nucleat RBC Rel Count (0.00-0.1) % Eos # (Auto) (0-0.5) x10^3/uL Immature Gran # (Auto) (0.00-0.03) x10^3u/L Absolute Lymphs (auto) (1.0-4.6) x10^3/uL Absolute Monos (auto) (0.0-1.3) x10^3/uL Absolute Nucleated RBC (0.00-0.01) x10^3u/L Lymphocytes % (24.0-44.0) % Monocytes % (0.0-12.0) % Eosinophils % (0.00-5.0) % Basophils % (0.0-0.4) % Absolute Granulocytes (1.4-6.9) x10^3/uL Basophils # (0-0.4) x10^3/uL POC Glucometer 118 H (74 to 106) mg/dL Troponin I 0.035 H 0.024 (0.000-0.034) ng/mL 06/09/22 06/09/22 06/10/22 Range/Units 16:04 21:39 06:43 WBC 7.2 (4.0-10.5) x10^3/uL RBC 3.25 L (4.1-5.4) x10^6/uL Hgb 9.5 L (12.0-16.0) g/dL Hct 29.8 L (35-47) % MCV 91.7 (78-100) fL MCH 29.2 (26-32) pg MCHC 31.9 L (32-36) g/dL RDW 14.4 H (11.5-14.0) % Plt Count 148 L (150-450) x10^3/uL MPV 10.4 (7.5-11.0) fL Gran % 65.6 (36.0-66.0) % Immature Gran % (Auto) 0.3 (0.00-0.4) % Nucleat RBC Rel Count 0.0 (0.00-0.1) % Eos # (Auto) 0.13 (0-0.5) x10^3/uL Immature Gran # (Auto) 0.02 (0.00-0.03) x10^3u/L Absolute Lymphs (auto) 1.69 (1.0-4.6) x10^3/uL Absolute Monos (auto) 0.59 (0.0-1.3) x10^3/uL Absolute Nucleated RBC 0.00 (0.00-0.01) x10^3u/L Lymphocytes % 23.6 L (24.0-44.0) % Monocytes % 8.3 (0.0-12.0) % Eosinophils % 1.8 (0.00-5.0) % Basophils % 0.4 (0.0-0.4) % Absolute Granulocytes 4.69 (1.4-6.9) x10^3/uL Basophils # 0.03 (0-0.4) x10^3/uL POC Glucometer 109 H 158 H (74 to 106) mg/dL Troponin I (0.000-0.034) ng/mL 06/10/22 Range/Units 07:14 WBC (4.0-10.5) x10^3/uL RBC (4.1-5.4) x10^6/uL Hgb (12.0-16.0) g/dL Hct (35-47) % MCV (78-100) fL MCH (26-32) pg MCHC (32-36) g/dL RDW (11.5-14.0) % Plt Count (150-450) x10^3/uL MPV (7.5-11.0) fL Gran % (36.0-66.0) % Immature Gran % (Auto) (0.00-0.4) % Nucleat RBC Rel Count (0.00-0.1) % Eos # (Auto) (0-0.5) x10^3/uL Immature Gran # (Auto) (0.00-0.03) x10^3u/L Absolute Lymphs (auto) (1.0-4.6) x10^3/uL Absolute Monos (auto) (0.0-1.3) x10^3/uL Absolute Nucleated RBC (0.00-0.01) x10^3u/L Lymphocytes % (24.0-44.0) % Monocytes % (0.0-12.0) % Eosinophils % (0.00-5.0) % Basophils % (0.0-0.4) % Absolute Granulocytes (1.4-6.9) x10^3/uL Basophils # (0-0.4) x10^3/uL POC Glucometer 111 H (74 to 106) mg/dL Troponin I (0.000-0.034) ng/mL Radiology Exams: Radiology Procedures Category Date Time Status CHEST 1 VIEW (PORTABLE) Stat Exams 06/09/22 01:26 Completed Multi-Disciplinary Progress Notes: Multi-Disciplinary Progress Notes 06/10/22 02:07 Respiratory Note by Lindy Herrera Patient has continued to refuse bipap throughout the night. Patient was placed on bipap at 0107 but patient removed bipap and refused to wear it any longer at 0110. ELI Pool aware of patient's refusal to wear bipap. Initialized on 06/10/22 02:07 - END OF NOTE 06/09/22 14:54 Respiratory Note by Jannette Gaona pt refused to wear bipap at this time. Initialized on 06/09/22 14:54 - END OF NOTE 06/09/22 13:09 Case Management Note by Bouchra Carrera SPOKE WITH DAUGHTER MEENA, WHOM PATIENT LIVES WITH. SHE STATES THAT THE SISTER HER MOTHER IS TALKING ABOUT KYLE OR EMMY TO LIVE WITH IS HOMELESS AND IS NOT ABLE TO TAKE PATIENT IN. SHE STATES SHE WOULD STILL LIKE FOR PATIENT TO BE DISCHARGED TO LIVE WITH HER AT HER HOME, BUT PATIENT BECAME INCREASINGLY CONFUSED AND VERBALLY THREATENING TO HER THURSDAY, WHICH IS NOT HER NORMAL STATE. SHE STATES PT IS WELL TAKEN CARE OF AT HER HOME, SHE KNOWS PATIENT'S ORDERED MEDICATIONS AND ORDERED TREATMENTS, SHE IS AGREEABLE TO PATIENT GOING TO [facility] IF THAT IS WHAT PATIENT REALLY WANTS WHEN SHE IS NO LONGER CONFUSED. Initialized on 06/09/22 13:09 - END OF NOTE 06/09/22 10:25 Case Management Note by Bouchra Carrera UPON TALKING WITH PATIENT ABOUT D/C PLAN, PT REPORTS SHE HAS [facility]. SHE STATES SHE CURRENTLY LIVES WITH HER DAUGHTER CONSTANTIN, BUT DOES NOT WANT TO RETURN THERE. SHE STATES SHE HAS A DAUGHTER EMMY, SHE WOULD LIKE TO GO LIVE WITH, BUT DOES NOT HAVE HER CONTACT INFORMATION. PHONED [facility], THEY STATE YES SHE IS THEIR PATIENT, THEY WERE ADVISED PREVIOUSLY SHE WENT TO A DIFFERENT HOSPITAL. 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 DISCUSSED PATIENT'S CONCERN, THEY WILL ALSO RELAY TO THEIR JAVA WEBSPHERE DEVELOPER. Initialized on 06/09/22 10:25 - END OF NOTE Assessment/Plan (1) Altered mental status Current Visit: Yes Status: Acute Qualifiers: Altered mental status type: delirium Qualified Code(s): R41.0 - Disorientation, unspecified Assessment & Plan: much improved; unsure if this is her baseline. Was apparently due to overmedication with opiates and BZD; have decreased both and pt seems to be tolerating it well. She did say that at home she was doing well on 8 percocet/d and 1 dose of morphine in the morning. Code(s): R41.82 - ALTERED MENTAL STATUS, UNSPECIFIED (2) Generalized weakness Current Visit: Yes Status: Acute Assessment & Plan: Would benefit from LTCF admission for rehab. Code(s): R53.1 - WEAKNESS (3) End stage COPD Current Visit: Yes Status: Chronic Assessment & Plan: Stable. Code(s): J44.9 - CHRONIC OBSTRUCTIVE PULMONARY DISEASE, UNSPECIFIED (4) CHF (congestive heart failure), NYHA class IV Current Visit: No Status: Chronic Qualifiers: Assessment & Plan: Stable. Code(s): I50.9 - HEART FAILURE, UNSPECIFIED
[2022-06-10] MEDS: ZYLOPRIM 300 MG PO SCH (08:55)
[2022-06-10] MEDS: Klor Con PO SCH ×2 (08:55→21:41)
[2022-06-10] MEDS: OXYCODONE-ACETAMINOPHEN 10-325 PO PRN ×2 (08:55→21:39)
[2022-06-10] MEDS: ELIQUIS 2.5 MG TABLET PO SCH ×2 (08:56→21:40)
[2022-06-10] MEDS: Wellbutrin XL 150 MG PO SCH (08:56)
[2022-06-10] MEDS: Lexapro PO SCH (08:56)
[2022-06-10] MEDS: Valium 5 MG PO SCH ×2 (08:56→21:40)
[2022-06-10] MEDS: Indocin 25 MG PO SCH ×3 (08:57→21:42)
[2022-06-10] MEDS ORDERED: Ativan 1 MG PO PRN (09:23)
[2022-06-10 09:27] LABS: ALBUMIN 3.4 g/dL (3.5-5.0); ALKALINE PHOSPHATASE 77 U/L (38-126); ANION GAP 11.1 MEQ/L (5-15); BLOOD UREA NITROGEN 15 mg/dL (7-17); CHLORIDE 97 mmol/L (98-107); Calcium 8.9 mg/dL (8.4-10.2); Carbon Dioxide 33 mmol/L (22-30); Creatinine 1 0.95 mg/dL (0.52-1.04); EST GLOMERULAR FILTRATION RATE > 60.0 ML/MIN; Glucose 108 mg/dL (74-106); PROCALCITONIN 0.064 ng/mL (0.030-0.080); Potassium 3.4 mmol/L (3.5-5.1); SGOT/AST 44 U/L (14-36); SGPT/ALT 12 U/L (0-35); SODIUM 138 mmol/L (137-145); Total Protein 6.8 g/dL (6.3-8.2)
[2022-06-10] MEDS ORDERED: Levofloxacin 500MG/100ML D5W 500 MG/100 ML BAG IV SCH (10:00)
[2022-06-10] MEDS ORDERED: Wellbutrin XL 150 MG PO SCH (10:00)
[2022-06-10] MEDS: PROTONIX 40 MG IV IV SCH (10:12)
[2022-06-10] MEDS: NYSTOP 30 GM CREAM TOP SCH ×2 (11:50→21:41)
[2022-06-10] MEDS: Singulair 10 MG PO SCH (21:40)
[2022-06-11] MEDS: OXYCODONE-ACETAMINOPHEN 10-325 PO PRN (02:57)
[2022-06-11] MEDS: DUONEB 0.5-3 MG/3 ml Neb IH SCH ×3 (07:09→14:46)
--- NOTE | 2022-06-11 09:01 | PCM.DS ---
Discharge Summary Date of Admission: 06/09/22 08:24 Admitting Physician: KERLINE CONSTANTINO Primary Care Provider: KENYA REYES Allergies Allergies adhesive tape Allergy (Verified 06/09/22 01:40) Penicillins Allergy (Verified 06/09/22 01:40) Hives morphine Adverse Reaction (Severe, Verified 06/10/22 18:07) [facility] Hospital Summary - Hospital Course Hospital Course: is a 61 year old female pt with CHF (IV) and end stage COPD on hospice admitted through ER with AMS. Labs were good (aside from slight anemia and slight hyperglycemia) and CT head nonacute. Pt was agitated in ER, but calmed down on the floor. Family noticed pt acting oddly after she had started on morphine; pt also started fentanyl patches relatively recently. She has had recent vaginal bleeding of unknown etiology, which has stopped since admission. Pt is oriented x 1 today (thinks she is at [facility], and doesn't know the date, "I knew you were going to ask me that,"). Yesterday morning she was oriented x 3. She is quite weak and at high risk for falls. Pt will be discharged to [place] for rehab. I discontinued her fentanyl, morphine, lorazepam, and hydroxyzine. - Vitals & Intake/Output Vital Signs: Vital Signs Temperature 97.1 F 06/11/22 07:27 Pulse Rate 51 L 06/11/22 07:27 Respiratory Rate 20 06/11/22 07:27 Blood Pressure 143/71 06/11/22 07:27 O2 Sat by Pulse Oximetry 97 06/11/22 07:27 Intake & Output: Intake & Output 06/08/22 06/09/22 06/10/22 06/11/22 11:59 11:59 11:59 11:59 Intake Total 380 1260 540 Output Total 1100 1150 Balance 380 160 -610 Weight 156.6 kg 157 kg - Lab Result Diagrams: 06/10/22 06:43 06/10/22 06:43 Lab Results-Last 24 Hrs: Lab Results-Last 24 Hours 06/10/22 06/10/22 06/10/22 Range/Units 06:43 06:43 11:20 Sodium 138 (137-145) mmol/L Potassium 3.4 L (3.5-5.1) mmol/L Chloride 97 L (98-107) mmol/L Carbon Dioxide 33 H (22-30) mmol/L Anion Gap 11.1 (5-15) MEQ/L BUN 15 (7-17) mg/dL Creatinine 0.95 (0.52-1.04) mg/dL Estimated GFR > 60.0 ML/MIN Glucose 108 H (74-106) mg/dL POC Glucometer 145 H (74 to 106) mg/dL Hemoglobin A1c 5.42 (4.5-6.0) % Calcium 8.9 (8.4-10.2) mg/dL Total Bilirubin 1.10 (0.2-1.3) mg/dL AST 44 H (14-36) U/L ALT 12 (0-35) U/L Alkaline Phosphatase 77 (38-126) U/L Serum Total Protein 6.8 (6.3-8.2) g/dL Albumin 3.4 L (3.5-5.0) g/dL Procalcitonin 0.064 (0.030-0.080) ng/mL 06/10/22 06/10/22 06/11/22 Range/Units 16:23 20:53 07:10 Sodium (137-145) mmol/L Potassium (3.5-5.1) mmol/L Chloride (98-107) mmol/L Carbon Dioxide (22-30) mmol/L Anion Gap (5-15) MEQ/L BUN (7-17) mg/dL Creatinine (0.52-1.04) mg/dL Estimated GFR ML/MIN Glucose (74-106) mg/dL POC Glucometer TNP 158 H 124 H (74 to 106) mg/dL Hemoglobin A1c (4.5-6.0) % Calcium (8.4-10.2) mg/dL Total Bilirubin (0.2-1.3) mg/dL AST (14-36) U/L ALT (0-35) U/L Alkaline Phosphatase (38-126) U/L Serum Total Protein (6.3-8.2) g/dL Albumin (3.5-5.0) g/dL Procalcitonin (0.030-0.080) ng/mL Micro Results-Entire Visit: Microbiology 06/09/22 06:02 Urine Culture - Preliminary Urine, Void NO GROWTH TO DATE Accuchecks Date 06/11/22 Date 06/10/22 Time 11:44 - Procedures and Test Procedures and Tests throughout Hospitalization: Therapy Orders & Screens 06/09/22 03:42 BiPap/CPAP ROUTINE Comment: Respiratory Therapy Assessment DAILY Comment: 06/09/22 09:58 Respiratory Therapy Assessment DAILY Comment: Diagnosis: Altered mental status 06/09/22 09:59 BiPap/CPAP ROUTINE Comment: Diagnosis: Altered mental status Oxygen Nasal Cannula 4 lpm Comment: Diagnosis: Altered mental status 06/10/22 09:05 PT Eval & Treat (MD Order) ONCE Reason for Eval:: fci placement Diagnosis: Altered mental status Discharge Exam General Appearance: no apparent distress, alert, obese Neurologic Exam: cooperative, disoriented Eye Exam: eyes nml inspection Ears, Nose, Throat Exam: moist mucous membranes Neck Exam: normal inspection Respiratory Exam: normal breath sounds, lungs clear, No crackles/rales, No rhonchi, No wheezing Cardiovascular Exam: regular rate/rhythm, normal heart sounds, No murmur Gastrointestinal/Abdomen Exam: soft, normal bowel sounds, No tenderness, No distention, No mass, No guarding, No rebound Back Exam: normal inspection, No rash Extremity Exam: normal inspection, No pedal edema, No swelling Skin Exam: warm, dry, No rash Wound Assessment: Skin/Wound Assessment Wound/Incision Assessment Start: 06/10/22 01:00 Text: Status: Active Freq: Protocol: Document 06/10/22 01:00 HORACE (Rec: 06/10/22 01:09 HORACE [id number]) Wound/Incision Assessment Left Posterior Wound Assessment Shift Assessment Drainage Odor Mild Odor Wound Bed Greatest Portion Red (Granulation) Surrounding Tissue [place] Comment open area under left breast Wound Photo Photo Taken No Final Diagnosis/Problem List - Final Discharge Diagnosis/Problem (1) Altered mental status Current Visit: Yes Status: Acute Assessment & Plan: much improved, although it does wax and wane. Code(s): R41.82 - ALTERED MENTAL STATUS, UNSPECIFIED (2) Generalized weakness Current Visit: Yes Status: Acute Assessment & Plan: Discharging to [facility] for rehab. Code(s): R53.1 - WEAKNESS (3) End stage COPD Current Visit: Yes Status: Chronic Assessment & Plan: On hospice. Code(s): J44.9 - CHRONIC OBSTRUCTIVE PULMONARY DISEASE, UNSPECIFIED (4) CHF (congestive heart failure), NYHA class IV Current Visit: No Status: Chronic Code(s): I50.9 - HEART FAILURE, UNSPECIFIED - Discharge Disposition: DC TO ANY "OTHER" ASSISTED Condition: Stable Prescriptions: New Nystatin Cream 30 gm [Nystop 30 gm Cream] 1 gm TOP BID #1 unit Diazepam 5 mg [Valium 5 MG] 5 mg PO BID #14 tablet Continue Montelukast Sodium 10 mg [Singulair 10 MG] 10 mg PO HS Allopurinol 300 mg [Zyloprim 300 mg] 300 mg PO DAILY Albuterol Sulfate [Ventolin Hfa] 2 puffs IH QID PRN PRN Reason: wheezes Furosemide 40 mg [Lasix 40 MG] 40 mg PO DAILY Oxycodone HCl/Acetaminophen [Endocet 10-325 mg Tablet] 1 tab PO Q4H PRN PRN PRN Reason: Pain Potassium Chloride 20 meq PO BID Sennosides [Senna] 1 cap PO DAILY PRN PRN PRN Reason: Constipation Indomethacin 25 mg [Indocin 25 MG] 50 mg PO TID Prochlorperazine Maleate 5 mg* [Compazine 5 MG] 10 mg PO Q6HPRN PRN PRN Reason: Nausea/Vomiting Bupropion HCl Xl 150 mg [Wellbutrin XL 150 MG] 300 mg PO DAILY Polyethylene Glycol 3350 17 gm [Miralax Powder 17GM PACKET] 17 gm PO QDP PRN PRN Reason: Constipation Albuterol/Ipratropium 3ml Neb* [DUONEB 0.5-3 MG/3 ml Neb] 3 ml IH QID PRN PRN Reason: Shortness Of Breath/Wheezing Escitalopram Oxalate [Lexapro] 20 mg PO DAILY Apixaban [Eliquis 5 mg Tablet] 5 mg PO BID Discontinued hydrOXYzine HCL [Hydroxyzine HCl] 50 mg PO BID Diazepam [Valium] 10 mg PO BID Morphine Sulfate [Morphine Sulfate ER] 60 mg PO TID Lorazepam 1 mg [Ativan 1 MG] 1 mg PO Q4H PRN PRN Reason: Anxiety Ibuprofen [IBUPROFEN 400 MG TABLET] 800 mg PO Q6HPRN PRN PRN Reason: Pain Follow up with: KENYA REYES NP [Primary Care Provider] -
[2022-06-11] MEDS: Valium 5 MG PO SCH (09:39)
[2022-06-11] MEDS: Klor Con PO SCH (09:39)
[2022-06-11] MEDS: NYSTOP 30 GM CREAM TOP SCH (09:39)
[2022-06-11] MEDS: Lexapro PO SCH (09:39)
[2022-06-11] MEDS: ELIQUIS 2.5 MG TABLET PO SCH (09:39)
[2022-06-11] MEDS: ZYLOPRIM 300 MG PO SCH (09:39)
[2022-06-11] MEDS: Indocin 25 MG PO SCH ×2 (09:40→15:13)
[2022-06-11] MEDS: Wellbutrin XL 150 MG PO SCH (09:40)
[2022-06-11] MEDS: PROTONIX 40 MG IV IV SCH (09:41)
--- NOTE | 2022-06-11 12:35 | XRAY ---
Indication: 61-year-old female with bleeding. Two-dimensional transvaginal pelvic sonogram performed. Comparison: None Commercial Helicopter Pilot notes limited exam due to patient condition. Uterus anteverted measuring 10.5 x 6.4 x 6.0 cm. No focal solid/cystic uterine mass. Abnormal thickened endometrial stripe measuring 3.8 cm. No endometrial cavity mass or fluid collection. Neither ovaries are visualized. No suspicious adnexal mass or free fluid. Impression: Limited transvaginal pelvic sonogram. Abnormal thickened endometrial stripe in this presumed menopausal patient concerning for malignancy. Nonvisualization both ovaries.
--- NOTE | 2022-06-11 13:04 | PCM.DCORD ---
- Discharge Disposition: DC TO ANY "OTHER" USP Condition: Stable Prescriptions: New Nystatin Cream 30 gm [Nystop 30 gm Cream] 1 gm TOP BID #1 unit Diazepam 5 mg [Valium 5 MG] 5 mg PO BID #14 tablet Continue Montelukast Sodium 10 mg [Singulair 10 MG] 10 mg PO HS Allopurinol 300 mg [Zyloprim 300 mg] 300 mg PO DAILY Albuterol Sulfate [Ventolin Hfa] 2 puffs IH QID PRN PRN Reason: wheezes Furosemide 40 mg [Lasix 40 MG] 40 mg PO DAILY Oxycodone HCl/Acetaminophen [Endocet 10-325 mg Tablet] 1 tab PO Q4H PRN PRN PRN Reason: Pain Potassium Chloride 20 meq PO BID Sennosides [Senna] 1 cap PO DAILY PRN PRN PRN Reason: Constipation Indomethacin 25 mg [Indocin 25 MG] 50 mg PO TID Prochlorperazine Maleate 5 mg* [Compazine 5 MG] 10 mg PO Q6HPRN PRN PRN Reason: Nausea/Vomiting Bupropion HCl Xl 150 mg [Wellbutrin XL 150 MG] 300 mg PO DAILY Polyethylene Glycol 3350 17 gm [Miralax Powder 17GM PACKET] 17 gm PO QDP PRN PRN Reason: Constipation Albuterol/Ipratropium 3ml Neb* [DUONEB 0.5-3 MG/3 ml Neb] 3 ml IH QID PRN PRN Reason: Shortness Of Breath/Wheezing Escitalopram Oxalate [Lexapro] 20 mg PO DAILY Apixaban [Eliquis 5 mg Tablet] 5 mg PO BID Discontinued hydrOXYzine HCL [Hydroxyzine HCl] 50 mg PO BID Diazepam [Valium] 10 mg PO BID Morphine Sulfate [Morphine Sulfate ER] 60 mg PO TID Lorazepam 1 mg [Ativan 1 MG] 1 mg PO Q4H PRN PRN Reason: Anxiety Ibuprofen [IBUPROFEN 400 MG TABLET] 800 mg PO Q6HPRN PRN PRN Reason: Pain Additional Instructions: USP ORDERS- ADMIT TO [facility]ILL[facility]ARE AT [facility] ACCU CHECKS DIABETIC DIET 4L/NC BLADDER TRAIN THEN REMOVE LO CATHETER SEE ATTACHED MED LIST Follow up with: KENYA REYES CHEMICAL MANAGER [Primary Care Provider] -
[2022-06-11 14:50] VITALS: PULSE 64
[2022-06-11 15:43] VITALS: BP 128/58
[2022-06-12 08:46] VITALS: O2SAT 83
== END 2022-06-11 17:45 ==
LOC: ED 01:04 → MED SURG 08:24
PROVIDERS: ADMIT Family Medicine; ATTEND Family Medicine
DX: R41.82 Altered mental status, unspecified (principal); R53.1 Weakness; J44.9 Chronic obstructive pulmonary disease, unspecified; I11.0 Hypertensive heart disease with heart failure; I50.9 Heart failure, unspecified; R73.9 Hyperglycemia, unspecified; D64.9 Anemia, unspecified; N95.0 Postmenopausal bleeding; M54.9 Dorsalgia, unspecified; S31.111A Laceration without foreign body of abdominal wall, left upper quadrant without penetration into peritoneal cavity, initial encounter; Z79.899 Other long term (current) drug therapy; Z20.828 Contact with and (suspected) exposure to other viral communicable diseases
CPT/HCPCS: 0241U; 36000; 36415; 51702; 71045; 76830; 80053; 80307; 81015; 82805; 82947; 83036; 84145; 84484; 85025; 87086; 93005; 93268; 94002; 94003; 94640; 94760; 96365; 96372; 96374; 96375; 97161; 99285; G0378; G0480; J1200; J1956; J2060; J3360; A9270-GY

== ENCOUNTER 2022-08-16 10:22 | Emergency (ER) | payer MEDICARE ==
--- NOTE | 2022-08-16 10:27 | ERPHSYRPT ---
- History of Present Illness Time Seen by Provider: 08/16/22 10:26 Source: patient Exam Limitations: no limitations Physician History: This is a morbidly obese 61-year-old female who uses a walker at home was brought into the emergency department by the ambulance secondary to a fall that occurred yesterday. Patient complains of left ankle pain. There is swelling present on both the medial and lateral malleoli are regions of the left ankle. Patient drug list includes oxycodone and indomethacin for her home medications. This patient has end-stage COPD and is in hospice care for this. She is here for assessment of the left ankle injury. Patient has a history of gout, CHF, hypertension, oxygen dependent COPD. She wears 4 L of oxygen via nasal cannula. Method of Injury: fell Occurred: yesterday Severity of Pain-Max: moderate Severity of Pain-Current: moderate Lower Extremities Pain: ankle: left Modifying Factors: Improves With: movement Associated Symptoms: unable to bear weight Allergies/Adverse Reactions: adhesive tape Allergy (Verified 08/16/22 10:26) Penicillins Allergy (Verified 08/16/22 10:26) Hives morphine Adverse Reaction (Severe, Verified 08/16/22 10:26) AMS Home Medications: Allopurinol 300 mg [Zyloprim 300 mg] 300 mg PO DAILY 07/27/21 [History] Montelukast Sodium 10 mg [Singulair 10 MG] 10 mg PO HS 07/27/21 [History] Bupropion HCl Xl 150 mg [Wellbutrin XL 150 MG] 300 mg PO DAILY 06/09/22 [History] Potassium Chloride 20 meq PO BID 06/09/22 [History] Prochlorperazine Maleate 5 mg* [Compazine 5 MG] 10 mg PO TID 06/09/22 [History] Escitalopram Oxalate [Lexapro] 20 mg PO DAILY 08/16/22 [History] Ibuprofen 1 tab PO DAILY PRN 08/16/22 [History] Meclizine HCl 25 mg [Antivert 25 mg] 1 tab PO TID 08/16/22 [History] bisacodyL [Bisacodyl] 10 mg PO DAILY PRN 08/16/22 [History] Hx Tetanus, Diphtheria Vaccination/Date Given: No Hx Influenza Vaccination/Date Given: No Hx Pneumococcal Vaccination/Date Given: No Travel Risk - International Travel Have you traveled outside of the country in past 3 weeks: No - Coronavirus Screening Are you exhibiting any of the following symptoms?: No Close contact with a COVID-19 positive Pt in past 14-21 Days: No - Vaccine Status Have you recieved a Covid-19 vaccination: No - Review of Systems Constitutional: No Symptoms Eyes: No Symptoms Ears, Nose, & Throat: No Symptoms Respiratory: No Symptoms Abdominal/Gastrointestinal: No Symptoms Genitourinary Symptoms: No Symptoms Musculoskeletal: Fall (Left ankle), Injury Skin: No Symptoms Neurological: No Symptoms Psychological: No Symptoms Endocrine: No Symptoms Hematologic/Lymphatic: No Symptoms Immunological/Allergic: No Symptoms All Other Systems: Reviewed and Negative - Past Medical History Pertinent Past Medical History: Yes Neurological History: No Pertinent History ENT History: No Pertinent History Cardiac History: Congestive Heart Failure, Hypertension Respiratory History: CHF, COPD Endocrine Medical History: No Pertinent History Musculoskeletal History: No Pertinent History GI Medical History: No Pertinent History History: Other Psycho-Social History: Anxiety, Depression Female Reproductive Disorders: No Pertinent History Other Medical History: KIDNEY STONES - Past Surgical History Past Surgical History: Yes Neuro Surgical History: No Pertinent History Cardiac: No Pertinent History Respiratory: No Pertinent History Gastrointestinal: Cholecystectomy Genitourinary: Kidney Surgery Musculoskeletal: No Pertinent History Female Surgical History: No Pertinent History Other Surgical History: Cysto with stent placement. - Social History Smoking Status: Never smoker How long have you smoked: 40yrs Exposure to second hand smoke: No Drug Use: none Patient Lives Alone: No - Nursing Vital Signs Nursing Vital Signs: Initial Vital Signs Temperature 97.8 F 08/16/22 10:33 Pulse Rate 80 08/16/22 10:33 Respiratory Rate 20 08/16/22 10:33 Blood Pressure 164/107 08/16/22 10:33 O2 Sat by Pulse Oximetry 96 08/16/22 10:33 Pain Scale Pain Intensity 0 - Physical Exam General Appearance: no apparent distress, alert, obese Eyes, Ears, Nose, Throat Exam: normal ENT inspection, moist mucous membranes Neck Exam: normal inspection, non-tender, supple, full range of motion Cardiovascular/Respiratory Exam: chest non-tender, no respiratory distress Gastrointestinal/Abdominal Exam: non-tender Back Exam: normal inspection, normal range of motion, No CVA tenderness, No vertebral tenderness Hips Exam: bilateral: non-tender, normal inspection, normal range of motion, no evidence of injury Legs Exam: bilateral leg: non-tender, normal inspection, normal range of motion, no evidence of injury Knees Exam: bilateral knee: non-tender, normal inspection, normal range of motion, no evidence of injury Ankle Exam: right ankle: non-tender, normal inspection, normal range of motion, no evidence of injury, left ankle: ecchymosis (Medial and lateral), limited range of motion, soft tissue tenderness, swelling Foot Exam: bilateral foot: non-tender, normal inspection, normal range of motion, no evidence of injury Neuro/Tendon Exam: normal sensation, normal motor functions, normal tendon functions, responds to pain, no evidence tendon injury Mental Status Exam: alert, oriented x 3, cooperative Skin Exam: normal color, warm, dry SpO2 Interpretation: normal O2 Delivery: Room Air Procedures - Splinting Time of Procedure: 11:53 Location of Splint: Left, Ankle Type of Splint: Orthoglass Short Leg Splint Splint Applied By: Other ([employer]orer Ar[place]io) Pre-Proc Neuro Vasc Exam: normal Post-Proc Neuro Vasc Exam: neurovascular intact, good alignment Ordered Tests: Active Orders 24 hr Category Date Time Status Splint STAT Care 08/16/22 11:08 Active ANKLE (3 VIEWS) Stat Exams 08/16/22 10:33 Taken CHEST 1 VIEW (PORTABLE) Stat Exams 08/16/22 12:36 Taken CULTURE,URINE Routine Lab 08/16/22 12:26 Received UA W/RFX CULTURE Stat Lab 08/16/22 12:26 Completed Medication Summary Discontinued Medications Generic Name Dose Route Start Last Admin Trade Name Travis PRN Reason Stop Dose Admin Levofloxacin 500 mg 08/16/22 13:45 08/16/22 13:51 Levofloxacin 500 Mg Tablet PO 08/16/22 13:46 500 mg STAT ONE Administration Levofloxacin Confirm 08/16/22 13:51 Levofloxacin 500 Mg Tablet Administered 08/16/22 13:52 Dose 500 mg .ROUTE .STK-MED ONE Lab/Rad Data: Laboratory Results 08/16/22 08/16/22 Range/Units 12:55 12:26 Urinalys Dipstick Clnc MAIN LAB Urine Color DARK YELLOW (YELLOW) Urine Appearance CLEAR (CLEAR) Urine pH 5.5 (5-6) Ur Specific Sanderson 1.030 (1.005-1.025) POC Urine Protein Conf NEGATIVE (Negative) Urine Ketones TRACE (NEGATIVE) Urine Nitrite POSITIVE (NEGATIVE) Urine Bilirubin NEGATIVE (NEGATIVE) Urine Urobilinogen 1 (0-1) mg/dL Urine Leukocytes TRACE (NEGATIVE) Urine WBC (Auto) 26-50 (0-5) /HPF Urine RBC (Auto) 26-50 (0-2) /HPF U Hyaline Cast (Auto) 0-2 (0-2) /LPF U Epithel Cells (Auto) NONE (FEW) /HPF Urine Bacteria (Auto) FEW (NEGATIVE) /HPF Urine RBC MODERATE (0-5) Dalton/ul Urine Mucus (Auto) SLIGHT (NEGATIVE) /HPF Ur Culture Indicated? ORDERED SEPARATELY Urine Glucose NEGATIVE (NEGATIVE) mg/dL Influenza Type A Ag NEGATIVE (NEGATIVE) Influenza Type B Ag NEGATIVE (NEGATIVE) RSV (PCR) NEGATIVE (Negative) SARS-CoV-2 (PCR) NEGATIVE (NEGATIVE) - Progress Progress: improved, pain not gone completely Progress Note: 08/16/22 11:08 X-ray left ankle shows a minimally displaced bimalleolar fracture 08/16/22 13:51 Chest x-ray shows no acute infiltrate. There are chronic changes noted. There is cardiomegaly present. 08/16/22 13:51 The patient has been placed on Levaquin which will treat both urinary tract infection and pulmonary infection that is not readily apparent on today's chest x-ray. 08/16/22 14:53 Medical decision making: The patient's family stated that they could not care for this patient if she was not ambulatory. The patient is not ambulatory secondary to her morbid obesity and the bimalleolar fracture in the left ankle. We have contacted [facility] and have made arrangements for her to be transferred directly to the [facility]. Patient also has a urinary tract infection. Because she is nonambulatory, we placed a Ovalle catheter in her. Patient will be transferred to [facility] directly from our facility. We are to discharge her. Counseled pt/family regarding: lab results, diagnosis, need for follow-up, rad results - Departure Departure Disposition: Extended Care Facility Clinical Impression: Bimalleolar fracture of left ankle, UTI (urinary tract infection) Condition: Stable Critical Care Time: No Referrals: KENYA REYES DAMAGE ADJUSTER [Primary Care Provider] - Follow up/PCP as directed Additional Instructions: Nonweightbearing. Patient needs orthopedic or podiatric consultation with Dr. Carballo or [facility] orthopedic clinic. Patient should have her urinary tract infection treated. Patient was given a single dose of Levaquin 500 mg orally here in the emergency room. Prescriptions: Levofloxacin [Levaquin 500 MG Tablet] 500 mg PO DAILY #7 tablet
[2022-08-16 12:29] VITALS: O2SAT 94
[2022-08-16 13:16] LABS: Appearance CLEAR (CLEAR); Bilirubin NEGATIVE (NEGATIVE); Glucose NEGATIVE (NEGATIVE); Ketones TRACE (NEGATIVE); RBC MODERATE Ery/ul (0-5)
[2022-08-16 13:17] LABS: Dipstick done @ ? MAIN LAB; Nitrite POSITIVE (NEGATIVE); Ph 5.5 (5-6); Protein,Urine Dip NEGATIVE (Negative); Urobilinogen 1 mg/dL (0-1)
[2022-08-16 13:25] LABS: Bacteria FEW /HPF (NEGATIVE); Hyaline Casts 0-2 /LPF (0-2); Mucus SLIGHT /HPF (NEGATIVE); RBC 26-50 /HPF (0-2); WBC 26-50 /HPF (0-5)
[2022-08-16 13:26] LABS: Urine Cultured Indicated? ORDERED SEPARATELY
[2022-08-16 13:41] VITALS: BP 150/87; PULSE 79
[2022-08-16 13:43] LABS: INFLUENZA A NEGATIVE (NEGATIVE); INFLUENZA B NEGATIVE (NEGATIVE); RESPIRATORY SYNCTIAL VIRUS NEGATIVE (Negative); SARS-CoV-2 Xpert Express NEGATIVE (NEGATIVE)
[2022-08-16] MEDS ORDERED: Levofloxacin 500 MG Tablet PO ONE (13:45)
[2022-08-16] MEDS ORDERED: Levofloxacin 500 MG Tablet ONE (13:51)
--- NOTE | 2022-08-16 20:27 | XRAY ---
Indication: Pain and bruising. No known injury. Comparison: None 3 view left ankle demonstrates nondisplaced bimalleolar fractures with soft tissue swelling. Elsewhere osteopenia and heel spurs. Remaining ankle unremarkable.
--- NOTE | 2022-08-16 20:39 | XRAY ---
Indication: Cough. COPD. CHF. Comparison: June 09, 2022 Portable chest demonstrates new cardiomegaly. Stable mediastinal and bilateral hilar calcified granulomas. No focal infiltrate, consolidation, or large effusion. Bony thorax intact again with osteopenia and degenerative changes. Impression: 1. New cardiomegaly. Negative for acute pneumonic process or CHF. 2. Again chronic bony findings and evidence for old granulomatous disease.
== END 2022-08-16 15:29 ==
LOC: ED 10:22
DX: S82.842A Displaced bimalleolar fracture of left lower leg, initial encounter for closed fracture (principal); W19.XXXA Unspecified fall, initial encounter; N39.0 Urinary tract infection, site not specified; M25.572 Pain in left ankle and joints of left foot; J44.9 Chronic obstructive pulmonary disease, unspecified; Z99.81 Dependence on supplemental oxygen; I11.0 Hypertensive heart disease with heart failure; Z79.891 Long term (current) use of opiate analgesic; Z79.899 Other long term (current) drug therapy; Z20.828 Contact with and (suspected) exposure to other viral communicable diseases
CPT/HCPCS: 0241U; 29515; 51702; 71045; 73610; 81015; 87077; 87086; 87186; 99284; A9270-GY